=== PATIENT | female | born 1980 | race Caucasian/White ===

== ENCOUNTER 2023-09-02 19:11 | Inpatient (IN) | payer MEDICARE, SELFPAY ==
[2023-09-02] VITALS (9 sets, daily range): BP systolic 110–146; BP diastolic 57–86; BMI 34.5
[2023-09-02 15:45] LABS: % Basophils 0.5 % (0-2); % Eosinophils 0.1 % (0-6); % Immature Granulocytes 1.6 % (0-0.5); % Monocytes 2.3 % (1.7-9.3); % Neutrophils 93.5 % (42.2-75.2); Absolute Basophils 0.1 10^3/uL (0-0.2); Absolute Immature Granulocytes 0.5 10^3/uL (0-0.05); Absolute Lymphocytes 0.6 10^3/uL (1.2-3.4); Absolute Monocytes 0.6 10^3/uL (0.1-0.6); Absolute Neutrophils 25.6 10^3/uL (1.4-6.5); Hematocrit 35.9 % (37.0-47.0); Hemoglobin 12.6 g/dL (12.0-16.0); Mean Corp Hgb Conc. 35.1 g/dL (33.0-37.0); Mean Corpuscular Hgb 30.4 pg (27.0-31.0); Mean Corpuscular Volume 86.7 fL (81.0-99.0); Mean Platelet Volume 9.6 fL (7.4-10.4); Nucleated Red Blood Cells % 0 %; Platelet Count 251 10^3/uL (130-400); Red Blood Cell Count 4.14 10^6/uL (4.20-5.40); Red Cell Dist. Width 12.8 % (11.5-14.5); White Blood Cell Count 27.4 10^3/uL (4.8-10.8)
[2023-09-02 15:47] LABS: INR 1.23; PT 15.6 Sec (11.4-14.6)
[2023-09-02 15:48] LABS: APTT 40.2 Sec (23.4-35.0)
[2023-09-02 15:50] LABS: ALT (SGPT) 17 U/L (0-35); AST (SGOT) 25 U/L (14-36); Albumin 3.9 g/dl (3.5-5.0); Alkaline Phosphatase 162 U/L (38-126); Blood Urea Nitrogen 33 mg/dl (7-17); Calcium 10.7 mg/dl (8.4-10.2); Carbon Dioxide 22 mmol/L (22-30); Chloride 91 mmol/L (98-107); Glucose 113 mg/dl (70-99); Total Bilirubin 0.6 mg/dl (0.2-1.3); Total Protein 6.6 g/dl (6.3-8.2); eGFR 15.94
[2023-09-02 15:59] LABS: Potassium 3.7 mmol/L (3.5-5.1); Sodium 124 mmol/L (135-145)
[2023-09-02 16:00] LABS: Troponin I < 0.012 ng/ml
--- NOTE | 2023-09-02 16:29 | ED.GENMED ---
History of Present Illness
<Oziel Sun PA-C - Last Filed: 09/02/23 18:51>
General
Chief Complaint: Weakness
Time Seen by Provider: 09/02/23 16:15
Travel History
Have you had any contact with someone who has COVID-19?: No
Do you have any symptoms of coronavirus? Fever > 100 degrees, chills, cough, shortness of breath, sore throat, loss of taste or smell, muscle aches, or headache?: No
History of Present Illness
History of Present Illness:
Patient is a 43-year-old female with past medical history of cerebral palsy with weakness and contracture of the right upper extremity and weakness of the right lower extremity, history of seizure disorder, and history of bipolar disorder, currently
taking lamotrigine and Lamictal, here today with for evaluation of a change in mental status over the past 3 to 4 days. Patient states she has had difficulty finding her words associated with intermittent headaches, feeling of confusion,
and increased tremors predominantly in the lower extremities. She feels that she may be having a seizure. Patient does report prior to symptom onset she had an episode of urinary incontinence secondary to her cerebral palsy. Because of this,
patient states she has not eaten in the last 3 to 4 days. She does report drinking fluids approximately 4L per day. No noted fevers. No cough, rhinorrhea, or sore throat. No congestion. No vomiting. No abdominal pain or diarrhea. No chest
pain or difficulty breathing. Patient denies alcohol or drug use. No suicidal ideations. No history of kidney disease. No new medications. She denies taking any additional medications accidentally.
Past History
<Oziel Sun PA-C - Last Filed: 09/02/23 18:51>
Past History
ED Past Medical History: Seizures, Psychiatric (Bipolar disorder) and Other (Cerebral palsy with right arm weakness)
ED Past Surgical History: None
Social History
Tobacco: Non-smoker
Alcohol: None
Personal:
Review of Systems
<Oziel Sun PA-C - Last Filed: 09/02/23 18:51>
Review of Systems
All Other Systems: ROS reviewed and negative except as documented in HPI and ROS
Phy Exam
<Oziel Sun PA-C - Last Filed: 09/02/23 18:51>
Physical Exam
Physical Exam:
GENERAL: Alert , in no apparent distress
EYE: pupils equal and reactive
NECK: Supple, no significant adenopathy.
ENT: o/p clr, mmm.
CARDIAC: Regular rate and rhythm .
LUNGS: Clear breath sounds bilaterally, no acute respiratory distress, no wheezes/rales/rhonchi
ABDOMEN: Soft, without focal tenderness, no r/g, no cvat
NEUROLOGICAL: Alert and oriented, no focal neuro deficits, there is increased spasticity/contractures along the right upper extremity which the patient reports is chronic, there is decreased strength in the right upper extremity, strength is
otherwise intact throughout, no focal deficits, moving all extremities
SKIN: Warm and dry, skin intact.
MUSCULOSKELETAL: No edema, well perfused.
PSYCH: Normal and appropriate interaction.
Course
<Oziel Sun PA-C - Last Filed: 09/02/23 18:51>
Orders/Labs/Results
Orders:
Orders
09/02/23 Dinner
NPO
Allow oral meds: No
Allow clear liquids: No
09/02/23 15:16
CT Head W/o Iv Contrast Urgent
Comment:
Reason For Exam: weakness
09/02/23 15:23
Complete Blood Count/With Diff Urgent
Comprehensive Metabolic Panel Urgent
Protime/PTT Urgent
Troponin I Urgent
09/02/23 16:34
Electrocardiogram (*1) Urgent
Reason for Study: QTc Monitoring
Other Reason for Exam: ams
EKG- Treatment ONCE
Test Result ONCE
CR Chest - 2 Views Urgent
Comment:
Reason For Exam: ams
09/02/23 16:54
Acetaminophen Urgent
Alcohol Urgent
Aspirin level [Salicylate] Urgent
Lactic Acid Urgent
Lamotrigine (Lamictal) [S] Urgent
Hughson Urgent
Magnesium Urgent
Phosphorus Urgent
TSH Reflex To Free T4 Urgent
09/02/23 17:29
Carrero Placement- Treatment ONCE
Reason for insertion: I&O's Critical Care
09/02/23 18:19
Blood Culture Q30M
ERENDIRA Source: Blood/Venous
Specimen Description:
09/02/23 18:20
Serum Osmolality Urgent
Venous Blood Gas Urgent
%Oxygen/Room Air: 98
Blood Culture Q30M
ERENDIRA Source: Blood/Venous
Specimen Description:
09/02/23 18:26
Admit/Transfer Patient As Directed
Co-Sign Provider:
Level of Care: Inpatient admission
Assign to:: ICU
Physician / Group: Dr Merritt
Diagnosis: Seizures/Hyponatremia/Hughson toxicity
Reason for Hospitalization: pte p/w ams, seizures, hyponatemia, maris.
Expected length of stay greater than two midnights?: Yes
ELOS- Estimated Length of Stay in days: 2
I certify the patient meets the requirements for IP care: Yes
09/02/23 18:27
Code Status As Directed
Resuscitation Status: Full Code
09/02/23 18:32
Drug Screen, Urine [Urine Drug Abuse Screen] Urgent
Date Specimen was Collected: 09/02/23
Time Specimen was Collected: 18:21
Osmolality, Random Urine Urgent
Date Specimen was Collected: 09/02/23
Time Specimen was Collected: 18:21
, Urine Qualitative Screen [HCG, Urine Qualitative Screen] Urgent
Date Specimen was Collected: 09/02/23
Time Specimen was Collected: 18:21
Protein/Creat Ratio (Random) Urgent
Date Specimen was Collected: 09/02/23
Time Specimen was Collected: 18:21
Comment: YAELON
Urinalysis Reflex To Culture Urgent
Date Specimen was Collected: 09/02/23
Time Specimen was Collected: 18:22
Urine Creatinine Urgent
Date Specimen was Collected: 09/02/23
Time Specimen was Collected: 18:21
Comment: YAELON
Urine Microscopic Reflex Cult Urgent
Urine Sodium Urgent
Date Specimen was Collected: 09/02/23
Time Specimen was Collected: 18:21
Urine Culture Urgent
ERENDIRA Source: U
Specimen Description:
Date Specimen was Collected: 09/02/23
Time Specimen was Collected: 18:22
09/02/23 18:57
Add On- LAB Routine
Tests Added?: cpk, mag, urine creatinine, protein creat ratio
09/02/23 19:01
Embossing Toolsetter Consult Routine
Consulting Provider: Miller Tee
Was physician already notified: Yes
Reason for consult: AMS, hyponatremia, Hughson toxicity
09/02/23 19:02
NEPHROLOGY CONSULT Routine
Consulting Provider: Dory Charles
Was physician already notified: Yes
Reason for consult: MARIS and Hughson toxicity
09/02/23 19:03
NEUROLOGY CONSULT Routine
Consulting Provider: Francia Bell
Was physician already notified: Yes
Reason for consult: Seizures, AMS
09/02/23 19:05
Neurosurgery Consult Routine
Consulting Provider: Hugo Stanley
Was physician already notified: Yes
Reason for Consult: brain arachnoid cyst
PSYCHIATRY CONSULT Routine
Consulting Provider: Radha Fritz
Was physician already notified: Yes
Reason for consult: Bipolar eval in the setting lithium toxicity
09/02/23 19:56
Activity As Directed
Activity Level: Bedrest
Neurological Checks As Directed
Frequency: Per unit guidelines
Vital Signs As Directed
Frequency: Per unit guidelines
DX Deep Vein Thrombosis Video Routine
09/02/23 20:00
CefTRIAXone [Rocephin] 1,000 mg IV Q24H
Heparin 5,000 units SC Q12
MetroNIDAZOLE 500 MG/100 ML [Flagyl 500 mg] 100 ml IV Q8H
09/02/23 22:00
Lamotrigine [Lamictal] 200 mg PO HS ONE
09/02/23 22:29
BMP [Basic Metabolic Panel] Q4H
Creatine Phosphokinase Routine
09/03/23 03:00
BMP [Basic Metabolic Panel] Q4H
09/03/23 06:00
Complete Blood Count/With Diff IN AM
Comprehensive Metabolic Panel IN AM
Cortisol, Random IN AM
Creatine Phosphokinase IN AM
PTH [Intact PTH Includes Calcium] IN AM
Vitamin D, 25-OH IN AM
09/03/23 07:00
BMP [Basic Metabolic Panel] Q4H
09/03/23 10:00
US Renal Only W/O Bladder Routine
Reason For Exam: MARIS
09/03/23 11:00
BMP [Basic Metabolic Panel] Q4H
09/03/23 15:00
BMP [Basic Metabolic Panel] Q4H
Abnormal Lab Results
09/02/23 09/02/23 09/02/23
15:23 16:54 18:20
WBC 27.4 H 10^3/uL
(4.8-10.8)
RBC 4.14 L 10^6/uL
(4.20-5.40)
Hct 35.9 L %
(37.0-47.0)
Abs Immat Gran (auto) 0.5 H 10^3/uL
(0-0.05)
Absolute Neuts (auto) 25.6 H 10^3/uL
(1.4-6.5)
Absolute Lymphs (auto) 0.6 L 10^3/uL
(1.2-3.4)
Immature Gran % 1.6 H %
(0-0.5)
Neutrophils % 93.5 H %
(42.2-75.2)
Lymphocytes % 2.0 L %
(20.5-51.1)
PT 15.6 H Sec
(11.4-14.6)
APTT 40.2 H Sec
(23.4-35.0)
Sodium 124 L mmol/L
(135-145)
Chloride 91 L mmol/L
(98-107)
BUN 33 H mg/dl
(7-17)
Creatinine 3.5 H mg/dL
(0.6-1.0)
Glucose 113 H mg/dl
(70-99)
Serum Osmolality 273 L mOsm/kg
(275-300)
Lactic Acid 2.3 H mmol/L
(0.7-2.0)
Calcium 10.7 H mg/dl
(8.4-10.2)
Alkaline Phosphatase 162 H U/L
(38-126)
Ur Occult Blood Reflex
Leukocyte Esterase Rfl
Urine RBC
Urine WBC (Reflex)
Urine Bacteria (Reflex)
Urine Osmolality
Urine Sodium
Urine Albumin (Reflex)
Salicylates < 1.0 L mg/dl
(2.0-20.0)
Acetaminophen < 10 L ug/ml
(10-30)
Hughson 1.9 H* mmol/L
(0.6-1.2)
09/02/23
18:32
WBC
RBC
Hct
Abs Immat Gran (auto)
Absolute Neuts (auto)
Absolute Lymphs (auto)
Immature Gran %
Neutrophils %
Lymphocytes %
PT
APTT
Sodium
Chloride
BUN
Creatinine
Glucose
Serum Osmolality
Lactic Acid
Calcium
Alkaline Phosphatase
Ur Occult Blood Reflex 3+ A
(Negative)
Leukocyte Esterase Rfl 2+ A
(Negative)
Urine RBC 3-6 A /HPF
(0-2)
Urine WBC (Reflex) 60-70 A /HPF
(0-5)
Urine Bacteria (Reflex) Few A
(Negative)
Urine Osmolality 138 L mOsm/kg
(300-900)
Urine Sodium 10 L mmol/L
(30-90)
Urine Albumin (Reflex) 1+ A
(Neg - Trace)
Salicylates
Acetaminophen
Hughson
09/02/23 15:23
09/02/23 19:00
Vital Signs
Initial and Last Documented VS:
Initial Vital Signs
Temp Pulse Resp BP Pulse Ox
97.8 F 104 18 137/86 98
09/02/23 15:09 09/02/23 15:09 09/02/23 15:09 09/02/23 15:09 09/02/23 15:09
Last Documented Vital Signs
Temp Pulse Resp BP Pulse Ox
100.8 F H 112 31 110/79 96
09/02/23 23:08 09/02/23 23:00 09/02/23 23:00 09/02/23 23:00 09/02/23 23:00
<Aston Nova, DO - Last Filed: 09/02/23 23:42>
Orders/Labs/Results
Orders:
Orders
09/02/23 Dinner
NPO
Allow oral meds: No
Allow clear liquids: No
09/02/23 15:16
CT Head W/o Iv Contrast Urgent
Comment:
Reason For Exam: weakness
09/02/23 15:23
Complete Blood Count/With Diff Urgent
Comprehensive Metabolic Panel Urgent
Protime/PTT Urgent
Troponin I Urgent
09/02/23 16:34
Electrocardiogram (*1) Urgent
Reason for Study: QTc Monitoring
Other Reason for Exam: ams
EKG- Treatment ONCE
Test Result ONCE
CR Chest - 2 Views Urgent
Comment:
Reason For Exam: ams
09/02/23 16:54
Acetaminophen Urgent
Alcohol Urgent
Aspirin level [Salicylate] Urgent
Lactic Acid Urgent
Lamotrigine (Lamictal) [S] Urgent
Hughson Urgent
Magnesium Urgent
Phosphorus Urgent
TSH Reflex To Free T4 Urgent
09/02/23 17:29
Carrero Placement- Treatment ONCE
Reason for insertion: I&O's Critical Care
09/02/23 18:19
Blood Culture Q30M
ERENDIRA Source: Blood/Venous
Specimen Description:
09/02/23 18:20
Serum Osmolality Urgent
Venous Blood Gas Urgent
%Oxygen/Room Air: 98
Blood Culture Q30M
ERENDIRA Source: Blood/Venous
Specimen Description:
09/02/23 18:26
Admit/Transfer Patient As Directed
Co-Sign Provider:
Level of Care: Inpatient admission
Assign to:: ICU
Physician / Group: Dr Merritt
Diagnosis: Seizures/Hyponatremia/Hughson toxicity
Reason for Hospitalization: pte p/w ams, seizures, hyponatemia, maris.
Expected length of stay greater than two midnights?: Yes
ELOS- Estimated Length of Stay in days: 2
I certify the patient meets the requirements for IP care: Yes
09/02/23 18:27
Code Status As Directed
Resuscitation Status: Full Code
09/02/23 18:32
Drug Screen, Urine [Urine Drug Abuse Screen] Urgent
Date Specimen was Collected: 09/02/23
Time Specimen was Collected: 18:21
Osmolality, Random Urine Urgent
Date Specimen was Collected: 09/02/23
Time Specimen was Collected: 18:21
, Urine Qualitative Screen [HCG, Urine Qualitative Screen] Urgent
Date Specimen was Collected: 09/02/23
Time Specimen was Collected: 18:21
Protein/Creat Ratio (Random) Urgent
Date Specimen was Collected: 09/02/23
Time Specimen was Collected: 18:21
Comment: RENAE
Urinalysis Reflex To Culture Urgent
Date Specimen was Collected: 09/02/23
Time Specimen was Collected: 18:22
Urine Creatinine Urgent
Date Specimen was Collected: 09/02/23
Time Specimen was Collected: 18:21
Comment: YAELON
Urine Microscopic Reflex Cult Urgent
Urine Sodium Urgent
Date Specimen was Collected: 09/02/23
Time Specimen was Collected: 18:21
Urine Culture Urgent
ERENDIRA Source: U
Specimen Description:
Date Specimen was Collected: 09/02/23
Time Specimen was Collected: 18:22
09/02/23 18:57
Add On- LAB Routine
Tests Added?: cpk, mag, urine creatinine, protein creat ratio
09/02/23 19:01
Embossing Toolsetter Consult Routine
Consulting Provider: Miller Tee
Was physician already notified: Yes
Reason for consult: AMS, hyponatremia, Hughson toxicity
09/02/23 19:02
NEPHROLOGY CONSULT Routine
Consulting Provider: Dory Charles
Was physician already notified: Yes
Reason for consult: MARIS and Hughson toxicity
09/02/23 19:03
NEUROLOGY CONSULT Routine
Consulting Provider: Francia Bell
Was physician already notified: Yes
Reason for consult: Seizures, AMS
09/02/23 19:05
Neurosurgery Consult Routine
Consulting Provider: Hugo Stanley
Was physician already notified: Yes
Reason for Consult: brain arachnoid cyst
PSYCHIATRY CONSULT Routine
Consulting Provider: Radha Fritz
Was physician already notified: Yes
Reason for consult: Bipolar eval in the setting lithium toxicity
09/02/23 19:56
Activity As Directed
Activity Level: Bedrest
Neurological Checks As Directed
Frequency: Per unit guidelines
Vital Signs As Directed
Frequency: Per unit guidelines
DX Deep Vein Thrombosis Video Routine
09/02/23 20:00
CefTRIAXone [Rocephin] 1,000 mg IV Q24H
Heparin 5,000 units SC Q12
MetroNIDAZOLE 500 MG/100 ML [Flagyl 500 mg] 100 ml IV Q8H
09/02/23 22:00
Lamotrigine [Lamictal] 200 mg PO HS ONE
09/02/23 22:29
BMP [Basic Metabolic Panel] Q4H
Creatine Phosphokinase Routine
09/03/23 03:00
BMP [Basic Metabolic Panel] Q4H
09/03/23 06:00
Complete Blood Count/With Diff IN AM
Comprehensive Metabolic Panel IN AM
Cortisol, Random IN AM
Creatine Phosphokinase IN AM
PTH [Intact PTH Includes Calcium] IN AM
Vitamin D, 25-OH IN AM
09/03/23 07:00
BMP [Basic Metabolic Panel] Q4H
09/03/23 10:00
US Renal Only W/O Bladder Routine
Reason For Exam: MARIS
09/03/23 11:00
BMP [Basic Metabolic Panel] Q4H
09/03/23 15:00
BMP [Basic Metabolic Panel] Q4H
Abnormal Lab Results
09/02/23 09/02/23 09/02/23
15:23 16:54 18:20
WBC 27.4 H 10^3/uL
(4.8-10.8)
RBC 4.14 L 10^6/uL
(4.20-5.40)
Hct 35.9 L %
(37.0-47.0)
Abs Immat Gran (auto) 0.5 H 10^3/uL
(0-0.05)
Absolute Neuts (auto) 25.6 H 10^3/uL
(1.4-6.5)
Absolute Lymphs (auto) 0.6 L 10^3/uL
(1.2-3.4)
Immature Gran % 1.6 H %
(0-0.5)
Neutrophils % 93.5 H %
(42.2-75.2)
Lymphocytes % 2.0 L %
(20.5-51.1)
PT 15.6 H Sec
(11.4-14.6)
APTT 40.2 H Sec
(23.4-35.0)
Sodium 124 L mmol/L
(135-145)
Chloride 91 L mmol/L
(98-107)
BUN 33 H mg/dl
(7-17)
Creatinine 3.5 H mg/dL
(0.6-1.0)
Glucose 113 H mg/dl
(70-99)
Serum Osmolality 273 L mOsm/kg
(275-300)
Lactic Acid 2.3 H mmol/L
(0.7-2.0)
Calcium 10.7 H mg/dl
(8.4-10.2)
Alkaline Phosphatase 162 H U/L
(38-126)
Ur Occult Blood Reflex
Leukocyte Esterase Rfl
Urine RBC
Urine WBC (Reflex)
Urine Bacteria (Reflex)
Urine Osmolality
Urine Sodium
Urine Albumin (Reflex)
Salicylates < 1.0 L mg/dl
(2.0-20.0)
Acetaminophen < 10 L ug/ml
(10-30)
Hughson 1.9 H* mmol/L
(0.6-1.2)
09/02/23
18:32
WBC
RBC
Hct
Abs Immat Gran (auto)
Absolute Neuts (auto)
Absolute Lymphs (auto)
Immature Gran %
Neutrophils %
Lymphocytes %
PT
APTT
Sodium
Chloride
BUN
Creatinine
Glucose
Serum Osmolality
Lactic Acid
Calcium
Alkaline Phosphatase
Ur Occult Blood Reflex 3+ A
(Negative)
Leukocyte Esterase Rfl 2+ A
(Negative)
Urine RBC 3-6 A /HPF
(0-2)
Urine WBC (Reflex) 60-70 A /HPF
(0-5)
Urine Bacteria (Reflex) Few A
(Negative)
Urine Osmolality 138 L mOsm/kg
(300-900)
Urine Sodium 10 L mmol/L
(30-90)
Urine Albumin (Reflex) 1+ A
(Neg - Trace)
Salicylates
Acetaminophen
Hughson
09/02/23 15:23
09/02/23 19:00
Vital Signs
Initial and Last Documented VS:
Initial Vital Signs
Temp Pulse Resp BP Pulse Ox
97.8 F 104 18 137/86 98
09/02/23 15:09 09/02/23 15:09 09/02/23 15:09 09/02/23 15:09 09/02/23 15:09
Last Documented Vital Signs
Temp Pulse Resp BP Pulse Ox
100.8 F H 112 31 110/79 96
09/02/23 23:08 09/02/23 23:00 09/02/23 23:00 09/02/23 23:00 09/02/23 23:00
<Oziel Sun PA-C - Last Filed: 09/02/23 18:51>
MDM/Problems Addressed
Differential Diagnosis Includes:
Patient is a 43-year-old female with past medical history of cerebral palsy with weakness and contracture of the right upper extremity and weakness of the right lower extremity, history of seizure disorder, and history of bipolar disorder, currently
taking lamotrigine and Lamictal, here today with for evaluation of a change in mental status over the past 3 to 4 days. Overall, patient appears well. Physical examination described above. Workup was initiated in the emergency department
and is noted to be positive for an increased WBC count to 27.4 thousand, sodium 124, chloride 91, BUN 33/creatinine 3.5 (last creatinine in September 2022 1.0), glucose 113, lactic acid 2.3, calcium 10.7. Alkaline phosphatase 162. Hughson level 1.9.
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 No midline shift. No prior studies to compare to. Symptoms/findings at this time are likely
multifactorial in nature and may be secondary to dehydration, acute kidney injury, metabolic encephalopathy, SIADH from brain mass, lithium toxicity, etc. Patient will undergo additional laboratory studies. Case was discussed with nephrology,
Araceli. She reports she will follow patient and management plan will be dependent on additional urine and blood studies. We will also obtain a bladder scan and insert a Carrero catheter to monitor urine output. Case was also discussed with
neurosurgery, Dr. Stanley. He does not recommend any acute intervention at this time and feels patient is suitable to stay at [facility] and does not require transfer at this time. We did attempt to obtain prior brain imaging studies
and radiology was able to see a prior MRI, however, they report a large cystic mass on the left consistent with an arachnoid cyst without size descriptions. Will admit patient to medicine for further treatment and evaluation. Case discussed with ED
attending, Dr. Nova.
<Oziel Sun PA-C - Last Filed: 09/02/23 18:51>
*Critical Care Note
Total Time (30-74mins, 75-104mins- exclusive of procedures): Not Applicable
<DO Kenisha Soriano Last Filed: 09/02/23 23:42>
*Radiology
Radiology exam reviewed: preliminary read by ED provider (No blood but large cystic structure) and radiology read reviewed
*Pulse Oximetry
Patient hypoxic: no
*Animal Control Licensing Worker Interpretation
Rate: normal
Interpretation: normal
Rhythm: sinus
*Critical Care Note
Total Time (30-74mins, 75-104mins- exclusive of procedures): 65 minutes
Data Reviewed
Review of Other/Old Records Reveals: Labs (Prior labs reviewed. Prior renal function normal)
Source: patient and spouse
Prescriptions/Medications Considered But Not Given:
Consider 3% saline but await nephrology input
<Aston Nova DO - Last Filed: 09/02/23 23:42>
Patient Management
Discussion with other providers: Hospitalist and Vineyard Worker (Case discussed with nephrology)
ED Attending Note
<Oziel Sun PA-C - Last Filed: 09/02/23 18:51>
-
Portions of this chart may have been created with voice recognition software.� Occasional wrong word or��sound alike� substitutions may have occurred due to the inherent limitations of voice recognition software.
<Aston Nova DO - Last Filed: 09/02/23 23:42>
ED Attending Note
Patient seen and examined by attending physician: Yes
I performed the substantive portion of visit, reviewed & personally made and approve the management plan that is documented in note by myself or KRYSTAL.: Yes
ED Attending Note:
43-year-old female with a history of seizures on lithium who presents with generalized weakness, concern for possible seizure activity, tremulousness and not eating very well. Exam: Patient is awake and alert, no respiratory distress, no obvious
seizure activity. Assessment and plan: Patient is quite complicated. Drink 4 L of fluid a day and her significant other suspects that is what keeps her from seizing because of her medications. It is noted that the patient has not had follow-up
for her brain cyst since 2005. states that they were told that it was large and about the same size as they were told it is today. In addition they have not had close follow-up with her renal function as there was some renal insufficiency
in the past reportedly. The patient does report excessive thirst. Question whether she could have diabetes insipidus related to her lithium. She is complicated by excessive water intake as well as acute renal failure. Case was discussed with
neurosurgery by ROBBY. I discussed the case with nephrology as well. Admit, IV fluids as per nephrology
Discharge Plan
Departure
Patient Disposition: Admit
Date of Disposition: 09/02/23
Time of Disposition: 18:17
Admit to: Med/Surg
Admit to doctor: Dr. Merritt
Presentation/result/management discussed w/ accepting MD/DO: Hospitalist
Patient with high blood pressure during this ER visit?: No
Condition: Critical
Covid-19: Not Applicable
Discharge Problem:
Altered mental status, Tremors, Acute kidney injury, Hyponatremia, Elevated lithium level, Arachnoid cyst, Leukocytosis, Lactic acidosis
Interventions
Interventions:
*Risk Screen - Suicide Last Done: 09/02/23 19:58
*General Assessment Last Done: 09/02/23 15:09
*Neglect/Abuse Screening Last Done: 09/02/23 15:09
*ED COVID-19 Vaccine History Last Done: 09/02/23 19:53
*Nursing Disposition Last Done: 09/02/23 19:50
ED- Pulmonary Assessment Last Done: 09/02/23 17:12
ED- Neurological Assessment Last Done: 09/02/23 17:12
ED- Cardiac Assessment Last Done: 09/02/23 17:12
Discharge Date and Time
Discharge Date/Time: 09/02/23 19:50
[2023-09-02 17:13] LABS: Lactic Acid 2.3 mmol/L (0.7-2.0)
[2023-09-02 17:16] LABS: Alcohol None Detected
[2023-09-02 17:17] LABS: Acetaminophen < 10 ug/ml (10-30); Lithium 1.9 mmol/L (0.6-1.2); Magnesium 1.9 mg/dl (1.6-2.3); Phosphorus 2.5 mg/dl (2.5-4.5); Salicylate < 1.0 mg/dl (2.0-20.0)
--- NOTE | 2023-09-02 17:58 | HPS.HSE ---
Family Physician
-
Family Physician: Joseph Burleson
Chief Complaint
-
AMS
History of Present Illness
Patient 43 years old female with history of cerebral palsy, bipolar disorder, seizures, presented to the hospital altered mental status. Most of the information gathered from medical records and family. Patient having difficulty finding work and
intermittent headaches and confusion on and off as well as increased tremors in her lower extremities over the last several days. They felt she probably had seizures. When I asked about what happened in terms of seizures, tells me that she
had some headaches and some difficulty speaking but is not clear that she had tonic-clonic activity. She has decreased oral intake. Denies fevers or chills. Denies dysuria urgency or frequency. Denies cough or shortness of breath. In the ED,
WBC 27.4, sodium 124, creatinine 3.5, lithium 1.9. CT scan of the head with large cystic structure in the left side of the brain consistent with a giant arachnoid cyst. Chest x-ray increased stranding of both lung bases. She was referred to
hospitalist for evaluation.
Medical History
Past Medical History
Past Medical History: Reports Other (Cerebral palsy, seizure disorders, bipolar disorder, history of arachnoid cyst of the brain.)
Past Surgical History: Reports None
Social History
Tobacco: Non-smoker
Alcohol: None
Drug: None
Family History
Family History: Not pertinent
Allergies / Home Medications
Allergies reflects when Allergies were last updated in [facility].
Home Medications with original date entered in [facility]
Allergy/Medication List:
Allergies
Allergy/AdvReac Type Severity Reaction Status Date / Time
No Known Allergies Allergy Unverified 09/02/23 15:13
Home Medications
lamotrigine 200 mg tablet 200 mg PO BID 09/02/23
lithium carbonate 300 mg tablet 300 mg PO BID@0800,1800 09/02/23
lithium carbonate 300 mg tablet 600 mg PO HS 09/02/23
venlafaxine 150 mg capsule,extended release 24 hr 150 mg PO DAILY 09/02/23
Review of Systems
-
A 12 point ROS was completed and negative except as noted: Yes
Physical Exam
Vital Signs
Vital Signs
Temp Pulse Resp BP Pulse Ox
97.8 F 104 18 137/86 98
09/02/23 15:09 09/02/23 15:09 09/02/23 15:09 09/02/23 15:09 09/02/23 15:09
Physical exam:
General: Acutely ill
HEENT: Normocephalic, Atraumatic and Moist Mucous Membranes
Respiratory: Clear to Auscultation; Negative Wheezes, Rales or Rhonchi
Cardiac: Regular Rhythm and S1/S2
GI: Soft, Nontender and Nondistended
Musculoskeletal: Contractures in both upper on lower extremities. No Clubbing, No Cyanosis and No Edema
Neuro: Awake, Alert and Oriented, cognitively intact.
Psych: Calm
Physical Exam
General: Other
Laboratory Results
-
09/02/23 15:23
09/02/23 15:23
Laboratory Results
PT 15.6 Sec (11.4-14.6) H 09/02/23 15:23
INR 1.23 09/02/23 15:23
APTT 40.2 Sec (23.4-35.0) H 09/02/23 15:23
Lactic Acid 2.3 mmol/L (0.7-2.0) H 09/02/23 16:54
Total Bilirubin 0.6 mg/dl (0.2-1.3) 09/02/23 15:23
AST 25 U/L (14-36) 09/02/23 15:23
ALT 17 U/L (0-35) 09/02/23 15:23
Alkaline Phosphatase 162 U/L (38-126) H 09/02/23 15:23
Troponin I < 0.012 ng/ml 09/02/23 15:23
Impression/Plan
-
IMPRESSION:
patient 43 y f Hx CP, Sz, admitted in with AMS. Patient appears to have seizures in the setting of severe hypernatremia, lithium toxicity, large arachnoid brain cyst. Patient critically ill. Patient at increased risk of morbidity and mortality
due to her current presentation. She will need to be admitted to intensive care unit and monitor closely.
Impression:
Altered mental status-toxic metabolic encephalopathy
Seizures
Leukocytosis
Acute kidney injury
Hyponatremia
[place] toxicity, lithium 1.9 in the setting of acute kidney injury
Suspicion for aspiration pneumonia
Hypercalcemia
Conditions prior to presentation:
Cerebral palsy
Seizures
Probably CKD
Bipolar disorder
PLAN:
Urine sodium and urine osmolarity as well as TSH and cortisol level
Will either do IV fluids or restrict fluid or 3% saline depending on workup
insist on starting fluids immediately but I discussed with him the nephrology needs to evaluate the workup first before we decide in terms of fluids and what kind if any.
Speech therapy for swallowing eval
Nephrology consult--> discussed personally with nephrology given concerns for lithium toxicity in the setting of renal failure and severe hyponatremia and she will evaluate if needed 3% and or if require hemodialysis at some point.
Neurology consult--> discussed with neurology and if there is evidence of seizures we might load her either Dilantin or Keppra. For now very hesitant on starting any different antiseizure medication so we will keep her home regimen.
Neurosurgery consult ([place] texted neurosurgery today)
Follow-up cultures
Start empirically IV Rocephin and Flagyl--> Okay with antibiotics
Check BMP every 4 hours
Check ultrasound of the kidneys/bladder
Carrero catheter placed in the ED and monitor urine output closely
Follow neurological status closely
Monitor sodium
Trend WBC, temperature curve
DVT prophylaxis heparin SQ
CODE STATUS full code
Overall prognosis guarded
Total Critical Care Time 55 minutes. I was immediately available to the patient and staff. I personally examined, reviewed labs, diagnostic images/reports, interpretations, treatment plans, discussed patient care with other providers and family
or caregivers (if patient is unable to make decisions), entered orders as appropriate and documented the medical record.
--- NOTE | 2023-09-02 18:28 | W.CON.NEPH ---
Consultation
-
Date/Time Consultation Requested: 09/02/231729
Date/Time Consultation Performed: 09/02/231744
Requesting Provider: Ulises Ross
Performing Provider: Dory Maya
Reason for Consultation: MARIS, hyponatremia
Medical History
-
Chief Complaint: confusion
History of Present Illness:
This 43-year-old female with a history of cerebral palsy with right sided weakness, seizure disorder, bipolar type II on lithium, venlafaxine, lamotrigine for several years who reportedly had some kidney dysfunction few years ago and lithium dose
was reduced Pre COVID, since that time she has not back to her physician brought in today by her spent with altered mental status for 3-4 days. She also reports to having seizure like activity 2 days ago and seemed to had postictal phase. According
to the on driving to the hospital and dropped she may have had shaking. Normally with her seizure she never loses her consciousness. Reportedly she drinks at least 4 L per day of fluid due to her medications. She had incontinence episode a
few days ago since then she decreased her oral intake except was continued to drink fluids. There is no history of chest pain or shortness of breath or nausea or vomiting or lower extremity edema. No dysuria. Reportedly patient states she has had
difficulty finding her words associated with intermittent headaches, feeling of confusion, and increased tremors predominantly in the lower extremities.� No noted fevers.� Denies use of NSAIDs.
In the ER she noted to have sodium of 124, creatinine was 3.5. Last creatinine was around 1 in September 2022. Calcium level was 10.7.
Past Medical History
Cerebral palsy with the right upper extremity contracture and right lower extremity weakness.
Seizure disorder
Bipolar disorder
Arachnoid cyst of brain
Past Surgical History: Other
Social History
Tobacco: Non-Smoker
Alcohol: None
Personal:
Living: With Family
Employment: Not Employed
Family History
patient has been away from her parents family for last 20 years hence no history available
Allergies / Home Medications
Allergy/AdvReac Type Severity Reaction Status Date / Time
No Known Allergies Allergy Unverified 09/02/23 15:13
Medication Instructions Recorded Confirmed Type
lamotrigine 200 mg tablet 200 mg PO BID 09/02/23 09/02/23 History
lithium carbonate 300 mg tablet 300 mg PO BID@0800,1800 09/02/23 09/02/23 History
lithium carbonate 300 mg tablet 600 mg PO HS 09/02/23 09/02/23 History
venlafaxine 150 mg 150 mg PO DAILY 09/02/23 09/02/23 History
capsule,extended release 24 hr
Review of Systems
-
All complete 12 point ROS have been inquired and found negative other than stated in HPI
Physical Exam
Vital Signs
Vital Signs
Temp Pulse Resp BP Pulse Ox
97.8 F 104 18 137/86 98
09/02/23 15:09 09/02/23 15:09 09/02/23 15:09 09/02/23 15:09 09/02/23 15:09
Lab Results
WBC 27.4 10^3/uL (4.8-10.8) H 09/02/23 15:23
RBC 4.14 10^6/uL (4.20-5.40) L 09/02/23 15:23
Hgb 12.6 g/dL (12.0-16.0) 09/02/23 15:23
Hct 35.9 % (37.0-47.0) L 09/02/23 15:23
Plt Count 251 10^3/uL (130-400) 09/02/23 15:23
Sodium 124 mmol/L (135-145) L 09/02/23 15:23
Potassium 3.7 mmol/L (3.5-5.1) 09/02/23 15:23
Chloride 91 mmol/L (98-107) L 09/02/23 15:23
Carbon Dioxide 22 mmol/L (22-30) 09/02/23 15:23
BUN 33 mg/dl (7-17) H 09/02/23 15:23
Creatinine 3.5 mg/dL (0.6-1.0) H 09/02/23 15:23
eGFR 15.94 09/02/23 15:23
Glucose 113 mg/dl (70-99) H 09/02/23 15:23
Calcium 10.7 mg/dl (8.4-10.2) H 09/02/23 15:23
Phosphorus 2.5 mg/dl (2.5-4.5) 09/02/23 16:54
Albumin 3.9 g/dl (3.5-5.0) 09/02/23 15:23
CT head:
IMPRESSION:
1. � Large cystic structure in the left side of the cerebrum, most consistent with a giant arachnoid cyst. No significant downward herniation or midline shift.
2. � No acute intracranial process.
3. � Are there any other imaging studies at another institution?
4.� � Follow-up with nonurgent contrast-enhanced MRI is recommended to fully evaluate and obtain an appropriate baseline at this institution.
Physical Exam
General: Awake, Alert, Oriented, AOx3, No Distress and Nontoxic
HEENT: EOMI and Anicteric
Respiratory: Clear, Normal Excursion and Nonlabored Respirations
Cardiac: S1/S2 and Regular Rate/Rhythm
Abdomen: Soft, Nontender and Nondistended
Musculoskeletal: No Cyanosis and No Edema
Skin: No Rash (face-rosacea?)
Neuro: Other (Rt UE contracture noted )
Psych: Mood/afflect pleasant, Insight/judgement good and Appropriate
Assessment/Plan
-
IMP:
AMS/confusion
Hyponatremia
MARIS-cr was 1 in 09/2022
Mild hypercalcemia
[place] toxicity
Elevated ALP
leucocytosis
Giant arachnoid cyst of brain
SZDO
Bipolar
Cerebral palsy
Plan:
P/w confusion, SZ 2days ago
Hyponatremia-likely symptomatic however seem to be polydipsia -4lit/day
check Uosmo, U na-if low osm likely will correct with FR 64ounces/day
if not will start 3% saline, normal TSH, check cortisol in am
Q4h labs check, goal to bring sodium to 130 tomorrow
MARIS-last cr 1 , one yr ago. place johnson, check UA and Fena
also check renal US
she may have underlying CKD with chr lithium use
Li levels 1.9, hold Li, need psych input to find alternative
if no improvement seen likely she needs HD-reviewed with pt and
Hypercalcemia-likely from Li related, check PTH and vit D
avoid nephrotoxins
BP are stable if hemodynamic instability ok to use NS
monitor L acid
d/w ER, primary team
d/w pt and in detail
CC time spent 45min
[2023-09-02 18:30] LABS: Venous Blood Gas B.E. 1.3 mmol/L (-4 to +4); Venous Blood Gas HCO3 25.9 mmol/L (22-27); Venous Blood Gas O2 Sat % 85.5 %; Venous Blood Gas pCO2 40 mmHg (35-48); Venous Blood Gas pH 7.42 (7.32-7.43); Venous Blood Gas pO2 49 mmHg (30-50)
[2023-09-02 18:39] LABS: Osmolality Serum 273 mOsm/kg (275-300)
--- NOTE | 2023-09-02 18:43 | CON.NEURO ---
Consultation
Order
Date of Consultation: 09/03/23
Reason for Consult: seizure
Neurology consultation note
CC: none
HPI: This is a 43-year-old left-handed woman who presented to [facility] with encephalopathy. According to the patient she had intermittent difficulties expressing her thoughts over the last 2 days. She believes she could have had
seizures. No reports of fever, headache recently started to discontinued medications.
ER VS:137/68, 104, afebrile
PDMP:none
Labs: WBC 27.4, Na 124, gluc 113, C 3.5, Ca 10.7, lactic acid 2.3, TSH-1.80, normal CK, TSH, lithium level 1.8(0.6-1.2)
CT [id number] large subarachnoid cyst with no significant shift or herniation.
PMH: Spastic CP, left-sided subarachnoid cyst,bipolar DO, chronic leukocytosis
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
FH: Not contributory to current presentation
All:NKDA
ROS:Constitutional: Negative. Negative for chills, fever and unexpected weight change.
HENT: Negative for ear pain, hearing loss, tinnitus and trouble swallowing.
Eyes: Negative. Negative for photophobia, pain and visual disturbance.
Respiratory: Negative for cough, choking and shortness of breath.
Cardiovascular: Negative for chest pain, palpitations and leg swelling.
Gastrointestinal: Negative for abdominal pain and vomiting.
Endocrine: Negative. Negative for cold intolerance.
Genitourinary: Negative for dysuria, flank pain and urgency.
Musculoskeletal: Negative for back pain, gait problem, neck pain and neck stiffness.
Skin: Negative for rash.
Allergic/Immunologic: Negative. Negative for immunocompromised state.
Neurological: Difficulties with speech, chronic right-sided stiffness
Psychiatric/Behavioral: Negative for behavioral problems, confusion and hallucinations.
General: Well developed. In no acute distress.
Cardio: Regular rate and rhythm without murmur. Extremities are without cyanosis or edema.
Neuro:
Mental Status: Alert, oriented to person, place, and date. Increased processing time. Follows simple requests consistently. Nonfluent.
Cranial Nerves: Pupils are equally round and reactive to light. EOMs full. Visual patterson full to confrontation. No ptosis. No nystagmus. V1-V3 intact to light touch and pinprick bilaterally, symmetric. Mild right facial weakness. Normal
hearing AU. The palate elevated well. SCMs and traps 5/5. Tongue midline. No dysarthria.
Motor: Spastic right hemiparesis
Reflexes: 3+
Sensory: Normal vibration at the toes
Coordination: No tremors myoclonic movements
Gait: deferred
Assessment and Plan:
I. Probably focal symptomatic seizure vs metabolic/infectious encephalopathy
II. Hyponatremia, MARIS, gG- bacteremia
III. Left-sided subarachnoid cyst
IV. [place] toxicity
-Seizure precautions
-Continue Lamictal home dose
-Check SPEP/IF
-Outpatient neurology follow up in 2-3 weeks
I personally reviewed all radiology and labs along with past medical records pertinent to current medical problems. Total time spent in patient care is 60 minutes.
Thank you for allowing us to participate in the care of this patient. Please do not hesitate to contact us with any questions or concerns.
Subjective/Objective
Subjective Data
Date of Service: September 02, 2023
Objective Data
Vital Signs
Temp Pulse Resp BP Pulse Ox
36.6 C 100 25 116/57 98
09/02/23 15:09 09/02/23 18:31 09/02/23 18:31 09/02/23 18:31 09/02/23 18:31
Lab Results
09/02/23 15:23
09/02/23 15:23
PT 15.6 Sec (11.4-14.6) H 09/02/23 15:23
INR 1.23 09/02/23 15:23
APTT 40.2 Sec (23.4-35.0) H 09/02/23 15:23
Sodium 124 mmol/L (135-145) L 09/02/23 15:23
Potassium 3.7 mmol/L (3.5-5.1) 09/02/23 15:
BUN 33 mg/dl (7-17) H 09/02/23 15:23
Glucose 113 mg/dl (70-99) H 09/02/23 15:23
Calcium 10.7 mg/dl (8.4-10.2) H 09/02/23 15:
Phosphorus 2.5 mg/dl (2.5-4.5) 09/02/23 16:54
Patient Allergies
No Known Allergies Allergy (Unverified 09/02/23 15:13)
Medications
-
Home Medications
Medication Instructions Recorded
lamotrigine 200 mg tablet 200 mg PO BID 09/02/23
lithium carbonate 300 mg tablet 300 mg PO BID@0800,1800 09/02/23
lithium carbonate 300 mg tablet 600 mg PO HS 09/02/23
venlafaxine 150 mg 150 mg PO DAILY 09/02/23
capsule,extended release 24 hr
Home Medications
-
Home Medications
lamotrigine 200 mg tablet 200 mg PO BID 09/02/23
lithium carbonate 300 mg tablet 300 mg PO BID@0800,1800 09/02/23
lithium carbonate 300 mg tablet 600 mg PO HS 09/02/23
venlafaxine 150 mg capsule,extended release 24 hr 150 mg PO DAILY 09/02/23
Vital Signs and Labs
-
Vital Signs and Labs:
Vital Signs
Temp Pulse Resp BP Pulse Ox
36.6 C 100 25 116/57 98
09/02/23 15:09 09/02/23 18:31 09/02/23 18:31 09/02/23 18:31 09/02/23 18:31
Lab Results
09/02/23 15:23
09/02/23 15:23
PT 15.6 Sec (11.4-14.6) H 09/02/23 15:23
INR 1.23 09/02/23 15:23
APTT 40.2 Sec (23.4-35.0) H 09/02/23 15:23
Sodium 124 mmol/L (135-145) L 09/02/23 15:23
Potassium 3.7 mmol/L (3.5-5.1) 09/02/23 15:23
BUN 33 mg/dl (7-17) H 09/02/23 15:23
Glucose 113 mg/dl (70-99) H 09/02/23 15:23
Calcium 10.7 mg/dl (8.4-10.2) H 09/02/23 15:23
Phosphorus 2.5 mg/dl (2.5-4.5) 09/02/23 16:54
[2023-09-02 18:56] LABS: Urine Albumin 1+ (Neg - Trace); Urine Bilirubin Negative (Negative); Urine Character Clear (Clear); Urine Color Yellow; Urine Glucose Negative (Negative); Urine Ketone Negative (Negative); Urine Leukocyte 2+ (Negative); Urine Nitrite Negative (Negative); Urine Occult Blood 3+ (Negative); Urine Urobilinogen Negative (Neg - 1+)
[2023-09-02 19:03] LABS: Osmolality Urine 138 mOsm/kg (300-900)
[2023-09-02 19:05] LABS: HCG, Urine Qualitative Screen Negative
[2023-09-02 19:26] LABS: Urine Bacteria Few (Negative); Urine White Cell 60-70 /HPF (0-5)
[2023-09-02 19:31] LABS: Amphetamines Negative (Negative); Barbiturates Negative (Negative); Benzodiazepines Negative (Negative); Buprenorphine Negative (Negative); Cocaine Negative (Negative); Marijuana Negative (Negative); Methadone Negative (Negative); Methamphetamines Negative (Negative); Opiates Negative (Negative); Phencyclidine Negative (Negative); Tricyclic Antidepressants Negative (Negative)
[2023-09-02 19:52] LABS: Protein/creatinine Ratio 3.3; Urine Protein 152 mg/dl; Urine Sodium 10 mmol/L (30-90)
[2023-09-02 20:00] LABS: Blood Urea Nitrogen 44 mg/dl (7-17); Calcium 11.1 mg/dl (8.4-10.2); Carbon Dioxide 20 mmol/L (22-30); Chloride 92 mmol/L (98-107); Estimated Creatinine Clearance 24 ml/min; Glucose 104 mg/dl (70-99); Potassium 3.4 mmol/L (3.5-5.1); Sodium 125 mmol/L (135-145); eGFR 16.51
--- NOTE | 2023-09-02 20:00 | PTCARENOTE ---
received patient from ER. oriented x3. denies pain at this time. R arm contracted. delayed speech at times. intermittent leg tremors noted. pt admits to possible seizures over the past few days that include increased delay in speech, tremoring, head
pains. ST on monitor. + pulses. left hand with purple discoloration. ICU ADDING MACHINE OPERATOR at bedside to assess patient. denies SOB, lungs CTA, on RA. hypoactive BS. patient NPO. johnson in place, emptied 350ml upon arrival. CHG bath. care ongoing.
[2023-09-02] MEDS: HEPARIN 5000 UNITS SC (20:51)
[2023-09-02] MEDS: LAMICTAL 200 MG PO (20:51)
[2023-09-02] MEDS: FLAGYL 500 MG 100 IV (20:52)
[2023-09-02] MEDS: STERILE WATER FOR INJECTION 10 ML IV (20:53)
[2023-09-02] MEDS: ROCEPHIN 1000 MG IV (20:53)
[2023-09-02] MEDS: ZOFRAN 4 MG IV (21:18)
--- NOTE | 2023-09-02 21:29 | PTCARENOTE ---
pt with episode of vomiting, denies nausea prior. PRN zofran given. pt denies nausea after episode. pt cleaned and oral care provided. cool towel placed on forehead for comfort. care ongoing.
[2023-09-02] MEDS: SODIUM CHLORIDE 3% 250 IV (22:14)
[2023-09-02 23:08] LABS: Blood Urea Nitrogen 42 mg/dl (7-17); Calcium 10.6 mg/dl (8.4-10.2); Carbon Dioxide 21 mmol/L (22-30); Chloride 95 mmol/L (98-107); Creatine Phosphokinase 25 U/L (30-135); Estimated Creatinine Clearance 23 ml/min; Glucose 105 mg/dl (70-99); Lithium 1.8 mmol/L (0.6-1.2); Potassium 3.1 mmol/L (3.5-5.1); Sodium 123 mmol/L (135-145); eGFR 15.41
[2023-09-02] MEDS: KCL 40 MEQ PO (23:17)
[2023-09-02] MEDS: TYLENOL 650 MG PO (23:17)
[2023-09-03] VITALS (24 sets, daily range): BP systolic 93–126; BP diastolic 55–99; BMI 34.5
--- NOTE | 2023-09-03 00:04 | PTCARENOTE ---
patient reassessed. MS unchanged. 3% NS infusing per nephrology. PRN tylenol given for temp 100.8. potassium repleted, see MAR. remains ST on monitor. 2L NC applied for O2 sat low 90s. johnson draining yellow urine. pt repositioned with assistance.
at beside, updated on plan of care.
[2023-09-03 03:06] LABS: % Basophils 0.4 % (0-2); % Eosinophils 0.6 % (0-6); % Immature Granulocytes 0.9 % (0-0.5); % Lymphocytes 3.1 % (20.5-51.1); % Monocytes 4.5 % (1.7-9.3); % Neutrophils 90.5 % (42.2-75.2); Absolute Basophils 0.1 10^3/uL (0-0.2); Absolute Eosinophils 0.1 10^3/uL (0-0.7); Absolute Immature Granulocytes 0.2 10^3/uL (0-0.05); Absolute Lymphocytes 0.8 10^3/uL (1.2-3.4); Absolute Monocytes 1.1 10^3/uL (0.1-0.6); Absolute Neutrophils 22.8 10^3/uL (1.4-6.5); Hematocrit 31.4 % (37.0-47.0); Hemoglobin 11.3 g/dL (12.0-16.0); Mean Corpuscular Hgb 30.5 pg (27.0-31.0); Mean Corpuscular Volume 84.9 fL (81.0-99.0); Mean Platelet Volume 9.6 fL (7.4-10.4); Nucleated Red Blood Cells % 0 %; Platelet Count 242 10^3/uL (130-400); Red Cell Dist. Width 12.8 % (11.5-14.5); White Blood Cell Count 25.2 10^3/uL (4.8-10.8)
[2023-09-03 03:18] LABS: ALT (SGPT) 14 U/L (0-35); AST (SGOT) 21 U/L (14-36); Albumin 3.2 g/dl (3.5-5.0); Alkaline Phosphatase 150 U/L (38-126); Blood Urea Nitrogen 44 mg/dl (7-17); Calcium 10.4 mg/dl (8.4-10.2); Carbon Dioxide 21 mmol/L (22-30); Chloride 97 mmol/L (98-107); Creatine Phosphokinase < 20 U/L (30-135); Estimated Creatinine Clearance 21 ml/min; Glucose 100 mg/dl (70-99); Lithium 1.8 mmol/L (0.6-1.2); Potassium 3.3 mmol/L (3.5-5.1); Sodium 128 mmol/L (135-145); Total Bilirubin 0.4 mg/dl (0.2-1.3); Total Protein 5.8 g/dl (6.3-8.2); eGFR 13.58
[2023-09-03 03:28] LABS: Blood Urea Nitrogen 45 mg/dl (7-17); Calcium 10.3 mg/dl (8.4-10.2); Carbon Dioxide 20 mmol/L (22-30); Chloride 98 mmol/L (98-107); Estimated Creatinine Clearance 21 ml/min; Glucose 98 mg/dl (70-99); Potassium 3.6 mmol/L (3.5-5.1); Sodium 128 mmol/L (135-145)
[2023-09-03 03:32] LABS: Vitamin D, 25-OH*** 22.1 ng/mL (30-80)
[2023-09-03 03:45] LABS: Cortisol, Random 32.1 ug/dl
[2023-09-03] MEDS: FLAGYL 500 MG 100 IV ×3 (04:26→19:45)
--- NOTE | 2023-09-03 04:33 | PTCARENOTE ---
pt reassessed. remains oriented, denies pain. sleeping but arousable to voice. ST on monitor. afebrile. remains on 2L NC. continue with NPO status. johnson intact, Q1H I&Os. AM labs sent. 3% NS continues, repeat Na 128. at bedside overnight.
care ongoing.
[2023-09-03 06:55] LABS: Lactic Acid 0.8 mmol/L (0.7-2.0)
[2023-09-03 07:19] LABS: Blood Urea Nitrogen 47 mg/dl (7-17); Calcium 10.1 mg/dl (8.4-10.2); Carbon Dioxide 18 mmol/L (22-30); Chloride 100 mmol/L (98-107); Estimated Creatinine Clearance 21 ml/min; Glucose 95 mg/dl (70-99); Potassium 3.9 mmol/L (3.5-5.1); Sodium 129 mmol/L (135-145); eGFR 13.58
--- NOTE | 2023-09-03 07:42 | CON.INTV ---
Consultation
Consultation Request
Date/Time Consultation Requested: 09/03/2023-7 AM
Date/Time Consultation Performed: 09/03/2023-7:30 AM
Requesting Provider: Hospitalist
Performing Provider: Dr. Tee
Reason for Consultation: [place] toxicity/critical care management
Medical History
-
Chief Complaint: [place] toxicity
History of Present Illness:
43-year-old female with a history of cerebral palsy, bipolar disorder, seizure disorder and history of arachnoid cyst who presented with altered mental status noted to have lithium toxicity and acute renal failure-flood control engineer consulted for lithium
toxicity/acute renal failure/critical care management 09/03/2023. She is alert and oriented and denies any shortness of breath, chest pain, chest tightness, wheezing, mucus, abdominal pain, weakness, or lower extremity edema.
Past Medical History
Past Medical History: None (Cerebral palsy. Bipolar disorder on lithium. Seizure disorder. Arachnoid cyst.)
Social History
Tobacco: Former Smoker (Briefly in college)
Alcohol: None
Drug: None
Personal:
Living: With Family
Occupational Exposures: No known asbestos exposure
Environmental Exposures: No known tuberculosis exposure
Family History
Family History: Reviewed & Not Pertinent
Allergies / Home Medications
Allergies
Allergy/AdvReac Type Severity Reaction Status Date / Time
No Known Allergies Allergy Unverified 09/02/23 15:13
Home Medications
Medication Instructions Recorded Confirmed Last Taken Type
lamotrigine 200 mg tablet 200 mg PO BID 09/02/23 09/02/23 Unknown History
lithium carbonate 300 mg tablet 300 mg PO BID@0800,1800 09/02/23 09/02/23 Unknown History
lithium carbonate 300 mg tablet 600 mg PO HS 09/02/23 09/02/23 Unknown History
venlafaxine 150 mg 150 mg PO DAILY 09/02/23 09/02/23 Unknown History
capsule,extended release 24 hr
Review of Systems
-
Unable to Obtain full review of systems at this time due to: Other (Per HPI)
Vitals / Labs / Diagnostic Testing
Vital Signs
Temp Pulse Resp BP Pulse Ox
98.9 F 84 24 109/67 97
09/03/23 07:39 09/03/23 06:00 09/03/23 06:00 09/03/23 06:00 09/03/23 06:00
Lab Data
09/03/23 02:42
Laboratory Results
09/02/23
15:23
PT 15.6 H
INR 1.23
APTT 40.2 H
Diagnostic Testing:
Physical Exam
-
Exam:
Well-nourished and well-developed in no apparent distress
HEENT-atraumatic, normocephalic
Neck-supple, no JVD, no bruit
Heart-regular rate and rhythm-no murmurs, rubs or gallops
Chest-clear to auscultation, no wheezes, crackles
Back-no tenderness
Abdomen-soft, nontender, nondistended, no hepatosplenomegaly
Extremities-no cyanosis, clubbing, edema and good peripheral pulses
Integument-intact, no rashes, lesions or ecchymosis
Neurology-alert and oriented, nonfocal motor and sensory exam
Assessment
-
43-year-old female with a history of cerebral palsy, bipolar disorder, seizure disorder and history of arachnoid cyst who presented with altered mental status noted to have lithium toxicity and acute renal failure-flood control engineer consulted for lithium
toxicity/acute renal failure/critical care management 09/03/2023.
Assessment
Toxic metabolic encephalopathy
Seizure
[place] toxicity
MARIS
Hyponatremia
Suspected aspiration pneumonia
Hypercalcemia
Leukocytosis
Elevated alkaline phosphatase
Mild hypercalcemia
Metabolic acidosis
Mild anemia-hemoglobin 11.3-normocytic
Vitamin D deficiency
Positive blood gqauzig-epvw-lpmtvgvo bacilli
Conditions present prior to admission:
Cerebral palsy.
Bipolar disorder on lithium.
Seizure disorder.
Arachnoid cyst.
Plan
Patient admitted to ICU for close observation and potential need for emergent dialysis due to lithium toxicity
Suspect systemic illness first, dehydration, progressive renal failure and then the lithium toxicity
Supplemental oxygen
Aspiration precautions
Nebulizers if needed-currently not bronchospastic
Incentive spirometry
[place] toxicity noted
Follow lithium levels
Monitor for arrhythmias including QT prolongation and bradycardia arrhythmias
Monitor for ataxia and confusion
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
Consider hemodialysis
Nephrology following
Renal ultrasound
Replacing sodium and 3% saline considered-changed to NSS
Neurology consultation
Seizure precautions
Consider EEG
Neurosurgical consultation
Check cultures
Blood cultures positive for gram-negative bacilli
Empiric antibiotics
Follow chest x-ray
Eventual vitamin D replacement
DVT prophylaxis-on subcu heparin
Nutrition
Early mobilization
Critical care statement: A total of 50 minutes of critical care time was provided for this patient today. This includes management of unstable vital signs, evaluation of the patient at bedside, reviewing the patient's pertinent medical records
including radiographs, microbiology, laboratory evaluations, and discussion with primary team, consultants, pharmacy, nutrition, physical therapy, case management, charge nurse, critical care nursing, and respiratory therapy.
Diagnostic data:
Chest x-ray 09/02/2023-bibasilar atelectasis, increased stranding in both lung bases representing atelectasis
CT head 09/02/2023-large cystic structure left side cerebrum most consistent with giant arachnoid cyst, no significant downward herniation or midline shift, no acute intracranial process
Data Reviewed
-
EKG: Report reviewed by me
Radiology: Report reviewed by me
CT Scan: Report reviewed by me
Medical Tests (Nuc Med, Echo etc): Report reviewed by me
Labs: Labs reviewed by me
Old Records: Reviewed
Critical Care Time (in minutes): 50
--- NOTE | 2023-09-03 08:10 | W.PN.NEPH.PH ---
Today's Communication / Plan
-
d/c 3%
start NSS at 100cc/hr
closely monitor sodium levels q4hrs
maintain johnson
holding HD today
follow lithium
Assessment/Plan
-
IMP:
AMS/confusion
Hyponatremia
MARIS-cr was 1 in 09/2022
Mild hypercalcemia
[place] toxicity
Elevated ALP
leucocytosis
Giant arachnoid cyst of brain
SZDO
Bipolar
Cerebral palsy
GN bacteremia
Plan:
MARIS unchanged but grossly non oliguric
will obtain serologies given active urine sediment
P/w confusion, SZ 2days ago
Hyponatremia-likely symptomatic however seem to be polydipsia -4lit/day
check Uosmo ~135 U na- low osm
was provided 3% saline last evening and sodium up to 129, will now stop 3%
continue intensive monitoring of lytes
will change IVFs to NSS at 100cc/hr to help with clearance of lithium
maintain johnson
MARIS-last cr 1 , one yr ago. place johnson, check UA and Fena
Urinalysis notes blood and urine protein to creatinine ratio 3.3 g not consistent with [place] tubular interstitial disease
also checking renal US
she may have underlying CKD with chr lithium use
Li levels down 1.8, hold Li, need psych input to find alternative
if no improvement seen likely she needs HD-reviewed with pt and
Hypercalcemia-likely from Li related, check PTH and vit D
monitor L acid
d/w ER, primary team
d/w pt and in detail
CC time spent 35min
Total Time Spent with Patient (in minutes): 35
-
-
Date of Service: September 03, 2023
CC / HPI / ROS
-
Chief Complaint:
MARIS
Hyponatremia
[place] toxicity
History of Present Illness:
lithium slowly drifting down to 1.8
hemodynamically low sided
creatinine unchanged at 4
now with GN bacteremia
Review of Systems:
non oliguric via johnson
febrile
no chest pain or sob
neurologically intact
Labs
-
Labs:
WBC 25.2 10^3/uL (4.8-10.8) H 09/03/23 02:42
RBC 3.70 10^6/uL (4.20-5.40) L 09/03/23 02:42
Hgb 11.3 g/dL (12.0-16.0) L 09/03/23 02:42
Hct 31.4 % (37.0-47.0) L 09/03/23 02:42
Plt Count 242 10^3/uL (130-400) 09/03/23 02:42
eGFR 13.58 09/03/23 06:24
Phosphorus 2.5 mg/dl (2.5-4.5) 09/02/23 16:54
Albumin 3.2 g/dl (3.5-5.0) L 09/03/23 02:42
Physical Exam
-
Vital Signs:
Vital Signs
Temp Pulse Resp BP Pulse Ox
98.9 F 87 23 99/66 93
09/03/23 07:39 09/03/23 08:00 09/03/23 08:00 09/03/23 08:00 09/03/23 08:07
Cardiovascular:: Regular rate and rhythm
Respiratory:: Bilateral: CTA
Lung Excursion:: Normal
Abdomen:: Nontender and Soft
Bowel Sounds:: Normal
Extremity Edema:: None: Bilateral:
Johnson Catheter: Yes
--- NOTE | 2023-09-03 08:58 | W.PN.HOSP.TC ---
Today's Communication/Plan
-
IV antibiotics. IV fluids of normal saline. Monitor sodium, creatinine, lithium levels.
Assessment / Plan
Assessment / Plan
Physical exam:
General: Acutely ill
HEENT: Normocephalic, Atraumatic and Moist Mucous Membranes
Respiratory: Clear to Auscultation; Negative Wheezes, Rales or Rhonchi
Cardiac: Regular Rhythm and S1/S2
GI: Soft, Nontender and Nondistended
Musculoskeletal: Contractures in both right upper and lower extremities.� No Clubbing, No Cyanosis and No Edema
Neuro: Awake, Alert and Oriented, cognitively intact. Right side spastic and paretic. Nystagmus present.
Psych: Calm
A/P:
Impression:
Altered mental status-toxic metabolic encephalopathy
Seizures
[place] toxicity, lithium 1.9 in the setting of acute kidney injury
Large left frontal arachnoid cyst
Acute kidney injury, creatinine 4 (unknown baseline)
Hyponatremia, sodium 129 latest
Hyperglycemia
Aspiration pneumonia/urinary tract infection
Positive blood cultures, gram-negative
Elevated alkaline phosphatase
Conditions prior to presentation:
Cerebral palsy
Seizures
Probably CKD
Bipolar disorder
PLAN:
Continue Lamictal, current home doses
Continue seizure precautions
Discussed with neurology today on 09/02
Appreciated nephrology consult and follow-up--> nephrology started on normal saline at 100 cc/h and discontinue 3% saline. Discussions about hemodialysis if and when needed will defer to nephrology.
Urine sodium 10, urine osmolarity 138, serum osmolarity 273, TSH 1.8, cortisol 32
Continue IV Rocephin and Flagyl
Follow-up cultures final identification and repeat blood cultures today
Reviewed renal ultrasound results
Appreciate neurosurgery input--> neurosurgery will check prior images and if stable no further intervention required.
Appreciate psychiatry input-->Decrease venlafaxine to 112.5 mg daily
No lithium in light of toxicity
Repeat lithium levels tomorrow
Continue cardiac monitoring
PT OT eval
Heparin SQ for DVT prophylaxis
CODE STATUS full code
Total time spent on today's encounter was 65 minutes which included time spent in counseling the patient/family regarding diagnosis and treatment plan as listed above, goals of care, and symptom management. Case was discussed with nursing staff,
specialists, and care coordinators/case management. All labs and imaging personally reviewed by me. Remainder the time spent in detailed review of previous records, lab data, imaging, and other medical provider documentation.
Anticipated Discharge: > 48 hours
Subjective/Interval History
-
Date of Service: September 03, 2023
Patient alert and oriented today. No seizure-like activity today. Afebrile.
Objective Data
-
Labs:
Laboratory Results
09/02/23 09/03/23 09/03/23
22:29 02:42 02:42
WBC 25.2 H
Hgb 11.3 L
Hct 31.4 L
Plt Count 242
Sodium 123 L 128 L 128 L
Potassium 3.1 L 3.3 L
Chloride 95 L
Carbon Dioxide 21 L
BUN 42 H
Creatinine 3.6 H
Glucose 105 H
Calcium 10.6 H
Total Bilirubin
AST
ALT
Alkaline Phosphatase
09/03/23 09/03/23 09/03/23
02:42 02:42 02:42
WBC
Hgb
Hct
Plt Count
Sodium
Potassium 3.6
Chloride 97 L 98
Carbon Dioxide 21 L 20 L
BUN 44 H
Creatinine
Glucose
Calcium
Total Bilirubin
AST
ALT
Alkaline Phosphatase
09/03/23 09/03/23 09/03/23
02:42 02:42 02:42
WBC
Hgb
Hct
Plt Count
Sodium
Potassium
Chloride
Carbon Dioxide
BUN 45 H
Creatinine 4.0 H 3.9 H
Glucose 100 H 98
Calcium 10.4 H
Total Bilirubin
AST
ALT
Alkaline Phosphatase
09/03/23 09/03/23 09/03/23
02:42 06:00 06:24
WBC
Hgb
Hct
Plt Count
Sodium Cancelled 129 L
Potassium Cancelled 3.9
Chloride Cancelled 100
Carbon Dioxide Cancelled 18 L
BUN Cancelled 47 H
Creatinine Cancelled 4.0 H
Glucose Cancelled 95
Calcium 10.3 H Cancelled 10.1
Total Bilirubin 0.4
AST 21
ALT 14
Alkaline Phosphatase 150 H
09/03/23 09/03/23
11:00 15:00
WBC
Hgb
Hct
Plt Count
Sodium Pending Pending
Potassium Pending Pending
Chloride Pending Pending
Carbon Dioxide Pending Pending
BUN Pending Pending
Creatinine Pending Pending
Glucose Pending Pending
Calcium Pending Pending
Total Bilirubin
AST
ALT
Alkaline Phosphatase
Vital Signs:
Vital Signs
Temp Pulse Resp BP Pulse Ox
98.9 F 87 23 99/66 93
09/03/23 07:39 09/03/23 08:00 09/03/23 08:00 09/03/23 08:00 09/03/23 08:07
I&O
09/02/23 09/03/23 09/04/23
06:59 06:59 06:59
Intake Total 220 / 235 30 / 30
Output Total 950 / 950 100 / 100
Balance -730 / -715 -70 / -70
Review of Systems
-
All other systems: Reviewed and negative
[2023-09-03] MEDS: HEPARIN 5000 UNITS SC ×2 (09:25→19:46)
[2023-09-03] MEDS: LAMICTAL 200 MG PO ×2 (09:46→19:46)
--- NOTE | 2023-09-03 10:43 | PTCARENOTE ---
pt had bedside ultrasound. set up to eat breakfast once complete
--- NOTE | 2023-09-03 11:59 | PTCARENOTE ---
Addendum entered by Krystal Bass RN 09/03/23 18:19:
systems reviewed, no changes.
Original Note:
have now attempted 3 times without success to draw labs as ordered. political consultant notified.
--- NOTE | 2023-09-03 12:17 | CM ---
CM following re: discharge planning.
Discussed in Rounds, reviewed pt's chart, met with pt and pt's at bedside. Pt's Harry confirmed that he and the pt got last February.
Pt is a 43 year old female, admitted with primary dx of Toxic metabolic encephalopathy, Seizure, [place] toxicity, MARIS. Nephrology following.
Pt reports she lives with in a 2SH, 2 steps to enter has no children. During interview, most questions answered by Harry and pt replied: 'he is very dramatics and I am not, staying positive'. Pt described herself as independent
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 No DME, VN or SNF history.
PT and OT will evaluate the pt to determine a level of care at discharge.
PCP: Joseph Burleson
Pharmacy: [facility]
D/C plan: most likely home with VN services. Will follow Nephrology recommendation.
CM will follow with discharge plan updates as hospitalization prioresses
[2023-09-03 13:01] LABS: Blood Urea Nitrogen 50 mg/dl (7-17); Calcium 10.3 mg/dl (8.4-10.2); Carbon Dioxide 20 mmol/L (22-30); Chloride 102 mmol/L (98-107); Estimated Creatinine Clearance 20 ml/min; Glucose 109 mg/dl (70-99); Potassium 4.2 mmol/L (3.5-5.1); Sodium 130 mmol/L (135-145); eGFR 12.81
--- NOTE | 2023-09-03 13:10 | PTCARENOTE ---
labs, i/o reviewed with nephrology. repeat labs due at 1600
--- NOTE | 2023-09-03 14:03 | CON.MD ---
Addendum entered and electronically signed by Mariposa Crow MD 09/03/23 15:15:
pharmacy expressing a lot of concern re serotonin syndrome given current meds/lithium toxicity etc. there is also issue w renal clearance of effexor. will decrease to 75 hoping to avoid withdrawal sx and avoid further complications of her illness
Original Note:
Consultation - Medical
-
patient seen chart reviewed. discussed w nursing. and mother in law at bedside. patient is 43 years old. she was dx w bipolar disorder and has experienced both manic and depressive episodes over the years. she was hospitalized once many
years ago after she superficially cut her wrist. patient did not want to kill herself at that time and says she has never been suicidal. interjected here and said she was trying to 'get to me...' the patient has been maintained on psych
meds by her pcp lamictal total 600 mg daily for sz d.o effexor 150 mg daily and lithium a total of 1200 mg daily. she noted in the past several days difficulty with word finding, gait disturbance, tremor and urinary incontinence. she came to er and
was found to have a lithium level of 1.9. other electrolyte abnormalities noted as well including NA of 124 wbc 27.4 creatinine 3.5 elevated phosphate all of which can be related to the lithium toxicity. she is being followed by nephrology and
discussion held as to whether to dialyze for the moment hydrating. labs pending from today. CAT showed arachnoid cyst cxr stranding both lung bases. the patient has Cerebral palsy and left weakness. the patient feels with the exception of this
toxicity that her medications were helping her maintain mood stabiity. she is not currently manic or particularly depressed . at one point she said she felt manic but she looked decidedly unmanic. i asked her what her sx were and she said thoughts
were racing. i suspect this is more anxiety given the situation rather than manic as there was nothing hyperenergetic about her presentation.
past psych hx one hospitalization some years ago. nothing recently she does not have a psych as when she went on a advantage plan in the [place] she lost her provider. she sees pcp once yearly if that. she last had a lithium level in 2019
medical see above
fh patient says none says everyone in her family has psych issues
substance abuse denied
social one year. with partner for 23 years. 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 she loves to read
mse alert ox3 cooperative pleaant speech and thought process normal. no unusual behaviors noted mood is neutral appropriate anxiety re the situation aver intelligence insight judgment fair cognition adequate
dx bipolar unspecified
recommendations it is a pity her lithium levels were not followed as if this were nipped in the bud we might have avoided this situation and she could have continued on lithium. levels should be done on the order of every three months or so in a
stable patient. no lithium at this point. lamotrogine may also do the job of mood stabilization in addition to seizures. i am concerned about continuing effexor with hyponatremia but h insistent that she needs it decreased dose to 112.5 and it
should be monitored closely. could use small doses of ativan prn if needed for anxiety (0.5 mg) i did not order it as she seems to be coping adequately. psych will follow
--- NOTE | 2023-09-03 14:36 | CON.NS ---
Consultation
-
Date/Time Consultation Performed: 09/03/2023, 14:36
Performing Provider: Karyn
Chief Complaint
History of Present Illness
This is a neurosurgical consultation on a 43-year-old female, with past medical history of cerebral palsy, bipolar disorder, seizure disorder, who presented with altered mental status.
Per chart report, patient was having intermittent headaches and confusion with increased tremors in bilateral lower extremities over the past several days. Patient was found to be hyponatremic with a serum sodium level of 124, and lithium level
elevated at 1.9. Her creatinine was also noted to be 3.5. She had a noncontrast head CT, which demonstrated a left frontal cystic structure. Neurosurgery consulted for further input and evaluation.
Patient seen and examined. Serum sodium levels up to 129, but creatinine continues to be elevated now at 4.0. is at bedside. reports that they have noted about the cyst in the left frontal brain since 2005. At that time, the
reports that he was told that this is probably something that has been longstanding and chronic in nature, and is not causing any symptoms. He reports that the CT scan was done at [facility] in 2005, and he also has previous MRI scans
that he will be bringing in for comparison. Patient offers no complaints.
Medication and Allergies
Home Medications
Home Medications
Medication Instructions Recorded
lamotrigine 200 mg tablet 200 mg PO BID Seizures 09/02/23
lithium carbonate 300 mg tablet 300 mg PO BID@0800,1800 Bipolar 09/02/23
Disorder
lithium carbonate 300 mg tablet 600 mg PO HS Bipolar Disorder 09/02/23
venlafaxine 150 mg 150 mg PO DAILY Mental 09/02/23
capsule,extended release 24 hr Health/Anxiety
Allergies
Allergies
Allergy/AdvReac Type Severity Reaction Status Date / Time
No Known Allergies Allergy Unverified 09/02/23 15:13
Physical Exam
-
Exam:
Lethargic, but awakens easily and follows commands.
Pupils are reactive. Disconjugate gaze. Nystagmus on right greater than left lateral gaze
Face is symmetric, tongue is midline.
Right arm and right leg spastic and paretic, baseline.
Full strength in left arm and left leg.
Head is normocephalic atraumatic. Neck is supple
Breathing unlabored
Cardiac: Normal rate and rhythm.
Abdomen is soft
Extremities are warm
Noncontrast CT scan of the head performed on 09/02/2023 demonstrates a large left frontal hypodense cystic structure with multiple septations. There is also thinning of the overlying skull noted. No previous imaging studies are available for
comparison.
Problems
-
Problem Status Onset Code
Elevated lithium level R79.89
Leukocytosis D72.829
Assessment / Plan
-
This was a 43-year-old female who presents with altered mental status, found to be hyponatremic, with past medical history of seizure disorder, cerebral palsy, elevated lithium levels and elevated creatinine. Noncontrast CT scan demonstrates a left
frontal large, likely arachnoid cyst. No previous imaging studies are available at this institution for comparison. According to the , left frontal cyst was diagnosed in 2005, and he has previous imaging studies at home for comparison. I
advised the to bring these scans and if possible. If indeed arachnoid cyst is stable and comparable in size, no further intervention or workup needed. Continue to treat metabolic derangements.
[2023-09-03 15:31] LABS: Hepatitis B Surface Antigen Negative (Negative)
[2023-09-03] MEDS: TYLENOL 650 MG PO (15:43)
--- NOTE | 2023-09-03 15:45 | PTCARENOTE ---
systems reviewed. pt just c/o 'feeling tired' again. low grade temp. medicated as charted with tylenol. pt otherwise without complaint. oxygen level 89% pt denies sob, appears in nad, placed on 2lnc. otherwise no changes,
[2023-09-03 15:49] LABS: Hepatitis B Surface Antibody Positive
[2023-09-03 16:13] LABS: Blood Urea Nitrogen 48 mg/dl (7-17); Calcium 10.5 mg/dl (8.4-10.2); Carbon Dioxide 21 mmol/L (22-30); Chloride 101 mmol/L (98-107); Estimated Creatinine Clearance 18 ml/min; Glucose 137 mg/dl (70-99); Potassium 3.4 mmol/L (3.5-5.1); Sodium 133 mmol/L (135-145); eGFR 11.79
[2023-09-03 16:56] LABS: Lithium 1.7 mmol/L (0.6-1.2)
[2023-09-03] MEDS: NSS 1000 IV ×2 (17:05→17:58)
[2023-09-03] MEDS: KLOR-CON 20 MEQ PO (17:49)
[2023-09-03] MEDS: STERILE WATER FOR INJECTION 10 ML IV (19:47)
[2023-09-03] MEDS: ROCEPHIN 1000 MG IV (19:47)
--- NOTE | 2023-09-03 20:00 | PTCARENOTE ---
Received patient at 1900. Pt. awake, alert, and oriented. No complaints of pain or discomfort at this time. Afebrile. Heart rhythm sinus. Blood pressure normotensive. Pt. currently on 2L nasal cannula. Lungs sound diminished. Pt. has regular diet
ordered with fluid restriction. Carrero catheter in place, draining without issue. Skin as documented. Discussed plan of care with patient. Vital signs stable at this time.
[2023-09-04] VITALS (18 sets, daily range): BP systolic 101–165; BP diastolic 56–91; PULSE 85; O2SAT 96; BMI 33.4
--- NOTE | 2023-09-04 00:29 | PTCARENOTE ---
Pt. assessment unchanged. Neuro check remains normal. Pt. has no complaints of pain or discomfort. IVF continuing at 150ml/hr. Urine output has been decent. Vital signs stable at this time.
[2023-09-04] MEDS: NSS 1000 IV ×2 (01:21→10:06)
[2023-09-04] MEDS: FLAGYL 500 MG 100 IV ×3 (03:20→20:14)
--- NOTE | 2023-09-04 03:40 | PTCARENOTE ---
Pt. assessment remains unchanged. AM labs drawn. Vital signs stable at this time.
[2023-09-04 04:03] LABS: % Basophils 0.4 % (0-2); % Eosinophils 1.6 % (0-6); % Immature Granulocytes 0.4 % (0-0.5); % Lymphocytes 4.5 % (20.5-51.1); % Monocytes 5.5 % (1.7-9.3); % Neutrophils 87.6 % (42.2-75.2); Absolute Basophils 0.1 10^3/uL (0-0.2); Absolute Eosinophils 0.2 10^3/uL (0-0.7); Absolute Immature Granulocytes 0.1 10^3/uL (0-0.05); Absolute Lymphocytes 0.6 10^3/uL (1.2-3.4); Absolute Monocytes 0.7 10^3/uL (0.1-0.6); Absolute Neutrophils 11.7 10^3/uL (1.4-6.5); Hematocrit 38.6 % (37.0-47.0); Hemoglobin 12.6 g/dL (12.0-16.0); Mean Corp Hgb Conc. 32.6 g/dL (33.0-37.0); Mean Corpuscular Hgb 29.7 pg (27.0-31.0); Mean Platelet Volume 9.9 fL (7.4-10.4); Nucleated Red Blood Cells % 0 %; Platelet Count 258 10^3/uL (130-400); Red Blood Cell Count 4.24 10^6/uL (4.20-5.40); Red Cell Dist. Width 13.8 % (11.5-14.5); White Blood Cell Count 13.4 10^3/uL (4.8-10.8)
[2023-09-04 04:34] LABS: ALT (SGPT) 14 U/L (0-35); AST (SGOT) 21 U/L (14-36); Albumin 3.2 g/dl (3.5-5.0); Alkaline Phosphatase 177 U/L (38-126); Blood Urea Nitrogen 48 mg/dl (7-17); Calcium 10.4 mg/dl (8.4-10.2); Carbon Dioxide 18 mmol/L (22-30); Chloride 111 mmol/L (98-107); Estimated Creatinine Clearance 19 ml/min; Glucose 112 mg/dl (70-99); Lithium 1.5 mmol/L (0.6-1.2); Sodium 137 mmol/L (135-145); Total Bilirubin 0.5 mg/dl (0.2-1.3); Total Protein 5.9 g/dl (6.3-8.2); eGFR 12.45
--- NOTE | 2023-09-04 07:05 | W.PN.INTV ---
Today's Communication / Plan
Recommendations
Follow lithium level
Normal saline
Follow electrolytes
Consider dialysis if does not improve
Eventual renal MRI or CT
Assessment
-
43-year-old female with a history of cerebral palsy, bipolar disorder, seizure disorder and history of arachnoid cyst who presented with altered mental status noted to have lithium toxicity and acute renal failure-scene painter consulted for lithium
toxicity/acute renal failure/critical care management 09/03/2023.
Assessment
Toxic metabolic encephalopathy
Seizure
[place] toxicity
MARIS
Hyponatremia
Suspected aspiration pneumonia
Hypercalcemia
Leukocytosis
Elevated alkaline phosphatase
Mild hypercalcemia
Metabolic acidosis
Mild anemia-hemoglobin 11.3-normocytic
Vitamin D deficiency
Positive blood njfvbfi-djgg-bogfzdco bacilli
Conditions present prior to admission:
Cerebral palsy.
Bipolar disorder on lithium.
Seizure disorder.
Arachnoid cyst.
Plan
Remains critically ill with acute renal failure lithium toxicity
Once again suspect systemic illness first, dehydration, progressive renal failure and then the lithium toxicity
Supplemental oxygen as needed
Aspiration precautions
Nebulizers if needed-currently not bronchospastic
Incentive spirometry
[place] toxicity-follow lithium levels-lithium level slowly decreasing now 1.5
Continue to monitor for arrhythmias including QT prolongation and bradycardia arrhythmias
Continue to monitor for ataxia and confusion
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
Consider hemodialysis-has not needed to thus far
Nephrology following-reviewed with Dr. Ramírez
Renal ultrasound 09/03/2023-no hydronephrosis, possible 2.8 cm mass in the region of left kidney-possible complex cyst, MRI or CT of the kidneys recommended
Normal saline continues-now normal at 137
Random cortisol adequate
TSH normal
Neurology consultation noted
Continue Lamictal
Check SPEP
Seizure precautions
Consider EEG
Neurosurgical consultation noted--awaiting films from [id number] when she reportedly had stable not enlarging cyst-Dr. Tee reminded 09/04/2023 to obtain films
Check cultures
Blood cultures positive for gram-negative bacilli
Empiric antibiotics
Follow chest x-ray
Leukocytosis improved
Eventual vitamin D replacement
Psychiatry evaluation noted
[place] levels every 3 months recommended
Ativan as needed for anxiety
DVT prophylaxis-on subcu heparin
Nutrition
Early mobilization
Dr. Tee reviewed with at the bedside-09/04/2023-reviewed renal ultrasound findings and need for further imaging
Critical care statement: A total of 40 minutes of critical care time was provided for this patient today. This includes management of unstable vital signs, evaluation of the patient at bedside, reviewing the patient's pertinent medical records
including radiographs, microbiology, laboratory evaluations, and discussion with primary team, consultants, pharmacy, nutrition, physical therapy, case management, charge nurse, critical care nursing, and respiratory therapy.
Diagnostic data:
Chest x-ray 09/02/2023-bibasilar atelectasis, increased stranding in both lung bases representing atelectasis
CT head 09/02/2023-large cystic structure left side cerebrum most consistent with giant arachnoid cyst, no significant downward herniation or midline shift, no acute intracranial process
Subjective Dataa
Subjective Data
Date of Service:
Date of Service: September 04, 2023
Chief Complaint: Stripper Preliminary Follow Up
Subjective:
No complaints of shortness of breath, chest pain, chest congestion, productive cough, or abdominal pain, still with some mental sluggishness according to her
Review of Systems
General: Other (Per HPI)
Objective Data
Data Reviewed
Vital Signs / I&O / Oxygen:
Vital Signs
Temp Pulse Resp BP Pulse Ox
98.8 F 93 27 124/70 94
09/04/23 04:00 09/04/23 06:02 09/04/23 06:02 09/04/23 06:02 09/04/23 04:00
Intake and Output
09/03/23 09/04/23 09/05/23
06:59 06:59 06:59
Intake Total 220 / 235 4440 / 4440
Output Total 950 / 950 1695 / 1695
Balance -730 / -715 2745 / 2745
SaO2 94
Nasal Cannula flow liters per 2
minute
Physical Exam
HEENT: Normocephalic and Anicteric
Cardiovascular: Regular Rhythm
Respiratory: Wheeze (n), Crackles (n), Rhonchi (n), Non-Labored Respirations, Accessory Resp Muscle Use (n) and Stridor (n)
GI: Soft, Non Distended and Non Tender
Neurology: Awake, Alert and No Motor Deficits
Skin: Warm, Good Color, Cyanosis (n) and Jaundice (n)
Labs/Micro/Reports
Lab Data
09/04/23 03:35
09/04/23 03:35
Microbiology
09/02/23 18:32 Urine Urine Culture - Preliminary
Escherichia coli
09/02/23 18:19 Blood/Venous Blood Culture - Preliminary
Escherichia coli
09/02/23 18:19 Blood/Venous Gram Stain - Final
09/02/23 18:20 Blood/Venous Blood Culture - Preliminary
Positive culture in progress
09/02/23 18:20 Blood/Venous Gram Stain - Preliminary
[2023-09-04] MEDS: EFFEXOR XR 75 MG PO (07:53)
[2023-09-04] MEDS: HEPARIN 5000 UNITS SC ×2 (07:53→20:14)
[2023-09-04] MEDS: LAMICTAL 200 MG PO ×2 (07:53→20:14)
--- NOTE | 2023-09-04 09:40 | W.PN.NEPH.PH ---
Today's Communication / Plan
-
Maintain normal saline
Maintain full
Follow BMP
Loosen fluid restriction to 60 ounces daily
Assessment/Plan
-
IMP:
AMS/confusion
Hyponatremia
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
MARIS-cr was 1 in 09/2022
Mild hypercalcemia
[place] toxicity
Elevated ALP
leucocytosis
Giant arachnoid cyst of brain
SZDO
Bipolar
Cerebral palsy
GN bacteremia
Left renal mass 2.8cm
Plan:
MARIS with some noted improvement with creatinine 4.3
Grossly nonoliguric with urine output of around 1600 cc
[place] level down to 1.5
obtained serologies given active urine sediment
Renal ultrasound notes no hydronephrosis but mild medical renal disease, possible 2.8 cm interpolar left renal mass noted: Discussed with patient and and she will require MRI
Metabolic acidosis persist
Hyponatremia improved to 137
check Uosmo ~135 U na- low osm
Maintain NSS at 100c/hr to help with clearance of lithium
maintain johnson
MARIS-last cr 1 , one yr ago.
Urinalysis notes blood and urine protein to creatinine ratio 3.3 g not consistent with [place] tubular interstitial disease
she may have underlying CKD with chr lithium use but I am concerned for alternative process given active urine sediment
Li levels down 1.8, hold Li, need psych input to find alternative
if no improvement seen likely she needs HD-reviewed with pt and
Hypercalcemia-likely from Li related, checked PTH and vit D
Antibiotics renally dosed: Flagyl ceftriaxone
-
-
Date of Service: September 04, 2023
CC / HPI / ROS
-
Chief Complaint:
MARIS
Hyponatremia
[place] toxicity
History of Present Illness:
lithium slowly drifting down to 1.5
hemodynamically more stable
creatinine improved and grossly nonoliguric
now with GN bacteremia on
Review of Systems:
non oliguric via johnson
febrile
no chest pain or sob
neurologically intact
Labs
-
Labs:
WBC 13.4 10^3/uL (4.8-10.8) H 09/04/23 03:35
RBC 4.24 10^6/uL (4.20-5.40) 09/04/23 03:35
Hgb 12.6 g/dL (12.0-16.0) 09/04/23 03:35
Hct 38.6 % (37.0-47.0) 09/04/23 03:35
Plt Count 258 10^3/uL (130-400) 09/04/23 03:35
Sodium 137 mmol/L (135-145) 09/04/23 03:35
Potassium 4.0 mmol/L (3.5-5.1) 09/04/23 03:35
Chloride 111 mmol/L (98-107) H 09/04/23 03:35
Carbon Dioxide 18 mmol/L (22-30) L 09/04/23 03:35
BUN 48 mg/dl (7-17) H 09/04/23 03:35
Creatinine 4.3 mg/dL (0.6-1.0) H* 09/04/23 03:35
eGFR 12.45 09/04/23 03:35
Glucose 112 mg/dl (70-99) H 09/04/23 03:35
Calcium 10.4 mg/dl (8.4-10.2) H 09/04/23 03:35
Phosphorus 2.5 mg/dl (2.5-4.5) 09/02/23 16:54
Albumin 3.2 g/dl (3.5-5.0) L 09/04/23 03:35
Physical Exam
-
Vital Signs:
Vital Signs
Temp Pulse Resp BP Pulse Ox
98.7 F 88 25 134/76 94
09/04/23 08:10 09/04/23 08:23 09/04/23 08:23 09/04/23 08:23 09/04/23 04:00
Cardiovascular:: Regular rate and rhythm
Respiratory:: Bilateral: CTA
Lung Excursion:: Normal
Abdomen:: Nontender and Soft
Bowel Sounds:: Normal
Extremity Edema:: None: Bilateral:
Johnson Catheter: Yes
[2023-09-04 09:49] LABS: Intact PTH 90.9 pg/ml (13.6-85.8)
--- NOTE | 2023-09-04 10:02 | PTCARENOTE ---
called staff to room c/o facial droop while pt up in chair and rapid eye blinking. Pt was able to smile equally, raise eyebrows equally and follow all commands. Pt was c/o burning to eye and was tearing. Pt also c/o blurry vision,
stated last eye check up was in 2019 maybe. Did discuss the need to f/u with eye doctor, face wiped and order obtained for artificial tears which resolved burning and tearing. No further intervention.
[2023-09-04] MEDS: REFRESH EYE DROPS (PF) 1 DROPS OPHTH (10:07)
--- NOTE | 2023-09-04 12:47 | W.PN.HOSP.TC ---
Today's Communication/Plan
-
continue f/u renal function/lithium level
continue abx
transfer tele
Assessment / Plan
Assessment / Plan
Impression:
Altered mental status-toxic metabolic encephalopathy
Seizures
[place] toxicity, lithium 1.9 in the setting of acute kidney injury
Large left frontal arachnoid cyst
Acute kidney injury, creatinine 4 (unknown baseline)
Hyponatremia, sodium 129 latest
Hyperglycemia
Aspiration pneumonia/urinary tract infection
Positive blood cultures, gram-negative
Elevated alkaline phosphatase
Conditions prior to presentation:
Cerebral palsy
Seizures
Probably CKD
Bipolar disorder
PLAN:
Continue Lamictal, current home doses
Continue seizure precautions
Appreciated nephrology consult and follow-up--> nephrology started on normal saline at 100 cc/h and discontinue 3% saline. Discussions about hemodialysis if and when needed will defer to nephrology.
Good urine output in last 24hr, creatinine 4.3 today - continue monitoring.
[place] level trending down > 1.5 today
Urine sodium 10, urine osmolarity 138, serum osmolarity 273, TSH 1.8, cortisol 32
Continue IV Rocephin and Flagyl
Follow-up cultures final identification and repeat blood cultures today
Reviewed renal ultrasound results
Appreciate neurosurgery input--> neurosurgery will check prior images and if stable no further intervention required.
Appreciate psychiatry input-->Decrease venlafaxine to 112.5 mg daily
Continue cardiac monitoring
Complaining bilateral visual blurriness, no new neurological deficit
unlikely central cause with bilateral changes and no associated neuro complains . monitor.
Heparin SQ for DVT prophylaxis
CODE STATUS full code
Anticipated Discharge: > 48 hours
Subjective/Interval History
-
Date of Service: September 04, 2023
Patient sitting comfortably in bed
Complaining blurriness in vision, no scotoma. no other neuro deficit
on o2 through NC
afebrile overnight
Objective Data
-
Labs:
Laboratory Results
09/04/23
03:35
WBC 13.4 H
Hgb 12.6
Hct 38.6
Plt Count 258
Sodium 137
Potassium 4.0
Chloride 111 H
Carbon Dioxide 18 L
BUN 48 H
Creatinine 4.3 H*
Glucose 112 H
Calcium 10.4 H
Total Bilirubin 0.5
AST 21
ALT 14
Alkaline Phosphatase 177 H
Vital Signs:
Vital Signs
Temp Pulse Resp BP Pulse Ox
98.3 F 78 20 114/80 95
09/04/23 12:42 09/04/23 12:13 09/04/23 12:13 09/04/23 10:00 09/04/23 08:20
I&O
09/03/23 09/04/23 09/05/23
06:59 06:59 06:59
Intake Total 220 / 235 4440 / 4590 1470 / 1470
Output Total 950 / 950 1695 / 1695 875 / 875
Balance -730 / -715 2745 / 2895 595 / 595
Review of Systems
-
Respiratory: Reports No Symptoms
Cardiac: Reports No Symptoms
Abdomen/GI: Reports No Symptoms
Physical Exam
-
General: Appears Chronically Ill; Negative Appears in Distress
HEENT: Oxygen
Respiratory: Clear to Auscultation
Cardiac: Regular Rhythm and S1/S2; Negative Murmur
GI: Soft, Nontender and Nondistended
Musculoskeletal: No Edema
Neuro: Awake, Alert and Oriented
Psych: Calm
--- NOTE | 2023-09-04 16:13 | PN.NS ---
Subjective
-
Patient seen and examined. has MRI of the brain from August 2005 available on hard films, for review.
Physical Exam
-
Exam:
Exam:
Sitting in chair, conversant, and follows commands.
Pupils are reactive.� Disconjugate gaze.� Nystagmus on right greater than left lateral gaze
Face is symmetric, tongue is midline.
Right arm and right leg spastic and paretic, baseline.
Full strength in left arm and left leg.
Head is normocephalic atraumatic.� Neck is supple
Breathing unlabored
Cardiac: Normal rate and rhythm.
Abdomen is soft
Extremities are warm
Noncontrast CT scan of the head performed on 09/02/2023 demonstrates a large left frontal hypodense cystic structure with multiple septations.� There is also thinning of the overlying skull noted.� No previous imaging studies are available for
comparison.
This was compared to patient's MRI of the brain, the provides for review, from August. There is a similar left frontal arachnoid cyst of similar size and appearance. Therefore, current CT scan demonstrating left large frontal
arachnoid cyst is stable in size
Problems
-
Problem Status Onset Code
Elevated lithium level R79.89
Leukocytosis D72.829
Assessment / Plan
-
This was a 43-year-old female who presents with altered mental status, found to be hyponatremic, with past medical history of seizure disorder, cerebral palsy, elevated lithium levels and elevated creatinine. Noncontrast CT scan demonstrates a left
frontal large, likely arachnoid cyst. No previous imaging studies are available at this institution for comparison. According to the , left frontal cyst was diagnosed in 2005, and he has previous imaging studies which she brought in from
home to compare. Indeed, this arachnoid cyst is stable and comparable in size to MRI of the brain performed on 08/26/2005. 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 Continue to treat
metabolic derangements. Call with questions
Today's Communication
-
Discussed with patient, patient's
--- NOTE | 2023-09-04 17:57 | VATNOTE ---
Called to evaluate IV in pt's L hand by PCN for suspected infiltrate. IV in L forearm assessed, redressed, and in good working order. IV fluids changed to forearm site and hand IV discontinued. Pt with tray set up for dinner and is left handed.
Informed pt that once she is finished eating we will need to apply heat to her hand to help reduce swelling. Pt verbalizes understanding. Communicated treatment plan to PCN who will apply heat to pt's hand after pt eats.
--- NOTE | 2023-09-04 18:30 | PTCARENOTE ---
Report called to J[facility]ie on 4th floor. Pt and family aware of pending transfer when bed clean
--- NOTE | 2023-09-04 18:37 | W.PN.UPDATE ---
Update Note
Progress Note Update
Pt seen & evaluated at bedside - sitting in chair next to bed. SPoke to pt alone initially then joined as she did not know her medication hx (says this is baseline for her). Pt difficult to interview as she remains quite confused, however is
able to discuss medication plans with help from (he is able to rephrase in a way that helps with her comprehension).
Has been on lithium for many yrs - it is unclear if lithium has ever helped significantly. According to pt and , the clearest improvement has been from Effexor (both anxiety & mood have improved and stabilized since, especially since most
recent increase.
Unclear whether pt truly has bipolar d/o vs anxiety/emotional dysregulation - 'episodes' are described as starting with stress that pt doesn't manage well, with increasing irritability and argumentativeness until there is a big argument and then
mood improves again. Possibly sleep disruption during these times, but not clear if due to mood disorder or anxiety/dysregulation.
Lamictal was started a few yrs after lithium was started - lamictal started for seizure management, however discussed that lamictal is also a mood stabilizer and can often help manage bipolar ii (if a mood disorder is present).
Pt & expressed worry that effexor dose being decreased pt will destabilize again - discussed why dose was decreased and that can be adjusted back up if kidney function improves or symptoms are observed to be returning.
2.5mg zyprexa bid prn in case mood instability/agitation occurs, however not unlikely that lamotrigine is adequate to manage mood symptoms if indeed a mood disorder is present.
no other changes
[2023-09-04 18:41] LABS: Lamotrigine (Lamictal) 16.6 ug/mL (3.0-15.0)
[2023-09-04] MEDS: STERILE WATER FOR INJECTION 10 ML IV (20:14)
[2023-09-04] MEDS: ROCEPHIN 1000 MG IV (20:14)
--- NOTE | 2023-09-04 21:13 | PTCARENOTE ---
Received pt. at 1900. Pt. OOB in chair. Alert and oriented. No complaints of pain or discomfort. Heart rhythm sinus. Currently on 2L nasal cannula. Lungs sound diminished, crackles at bases. Pt. on regular diet with 1500ml fluid restriction. Poor
appetite. Carrero catheter in place per order, draining without issue. Skin as documented. Report called to 4th floor. While getting patient ready for transfer, noticed IV site is leaky. IVT paged. IVT placed new infusor. Vital signs stable at this
time.
[2023-09-05] MEDS: NSS 1000 IV (00:32)
[2023-09-05] MEDS: TYLENOL 650 MG PO (03:09)
[2023-09-05 03:15] VITALS: BP 142/83
[2023-09-05] MEDS: FLAGYL 500 MG 100 IV ×3 (04:29→23:30)
[2023-09-05] MEDS: NSS IV (06:48)
[2023-09-05 07:26] VITALS: BP 143/84
[2023-09-05 07:49] LABS: Hematocrit 30.2 % (37.0-47.0); Mean Corp Hgb Conc. 32.8 g/dL (33.0-37.0); Mean Corpuscular Hgb 29.9 pg (27.0-31.0); Mean Corpuscular Volume 91.2 fL (81.0-99.0); Mean Platelet Volume 9.6 fL (7.4-10.4); Platelet Count 272 10^3/uL (130-400); Red Blood Cell Count 3.31 10^6/uL (4.20-5.40); Red Cell Dist. Width 14.6 % (11.5-14.5); White Blood Cell Count 15.6 10^3/uL (4.8-10.8)
[2023-09-05 08:20] LABS: Hemoglobin 9.9 g/dL (12.0-16.0)
[2023-09-05 08:49] LABS: Blood Urea Nitrogen 41 mg/dl (7-17); Calcium 10.7 mg/dl (8.4-10.2); Carbon Dioxide 16 mmol/L (22-30); Chloride 120 mmol/L (98-107); Estimated Creatinine Clearance 22 ml/min; Glucose 100 mg/dl (70-99); Lithium 1.1 mmol/L (0.6-1.2); Potassium 3.7 mmol/L (3.5-5.1); Sodium 142 mmol/L (135-145); eGFR 15.41
[2023-09-05] MEDS: LAMICTAL 200 MG PO ×2 (08:53→20:13)
[2023-09-05] MEDS: HEPARIN 5000 UNITS SC ×2 (08:53→20:13)
[2023-09-05] MEDS: EFFEXOR XR 75 MG PO (08:53)
--- NOTE | 2023-09-05 09:54 | W.PN.HOSP.TC ---
Today's Communication/Plan
-
see note
Assessment / Plan
Assessment / Plan
Impression:
Altered mental status-toxic metabolic encephalopathy
Seizures
[place] toxicity, lithium 1.9 in the setting of acute kidney injury
Large left frontal arachnoid cyst
Acute kidney injury, creatinine 4 (unknown baseline)
Hyponatremia, sodium 129 latest
Hyperglycemia
Aspiration pneumonia/urinary tract infection
Positive blood cultures, gram-negative
Elevated alkaline phosphatase
Conditions prior to presentation:
Cerebral palsy
Seizures
Probably CKD
Bipolar disorder
PLAN:
Continue Lamictal, current home doses
Continue seizure precautions
Appreciated nephrology consult and follow-up--> nephrology started on normal saline at 100 cc/h and discontinue 3% saline. Discussions about hemodialysis if and when needed will defer to nephrology.
Good urine output in last 24hr, creatinine continues to trend down 3.6 today
[place] level trending down > 1.5 > 1.1 today - continue holding, psych following
Urine sodium 10, urine osmolarity 138, serum osmolarity 273, TSH 1.8, cortisol 32
Continue IV Rocephin and Flagyl.
Repeat CXR on 09/03 showing Right basillar infiltrate
Follow-up cultures final identification and repeat blood cultures today
Reviewed renal ultrasound results
Appreciate neurosurgery input--> neurosurgery will check prior images and if stable no further intervention required.
Appreciate psychiatry input-->Decrease venlafaxine to 112.5 mg daily
Continue cardiac monitoring
Complaining bilateral visual blurriness, no new neurological deficit
unlikely central cause with bilateral changes and no associated neuro complains . monitor.
Heparin SQ for DVT prophylaxis
CODE STATUS full code
Anticipated Discharge: > 48 hours
Subjective/Interval History
-
Date of Service: September 05, 2023
Sitting comfortably in chair
Having some difficulty grasping glass - missing target
Objective Data
-
Labs:
Laboratory Results
09/05/23
06:55
WBC 15.6 H
Hgb 9.9 L D
Hct 30.2 L
Plt Count 272
Sodium 142
Potassium 3.7
Chloride 120 H
Carbon Dioxide 16 L
BUN 41 H
Creatinine 3.6 H
Glucose 100 H
Calcium 10.7 H
Vital Signs:
Vital Signs
Temp Pulse Resp BP Pulse Ox
98.5 F 87 28 143/84 94
09/05/23 07:26 09/05/23 07:26 09/05/23 07:26 09/05/23 07:26 09/05/23 09:07
I&O
09/04/23 09/05/23 09/06/23
06:59 06:59 06:59
Intake Total 4440 / 4590 3050 / 3050
Output Total 1695 / 1695 3225 / 3225
Balance 2745 / 2895 -175 / -175
Review of Systems
-
Respiratory: Reports No Symptoms
Cardiac: Reports No Symptoms
Abdomen/GI: Reports No Symptoms
Physical Exam
-
General: Appears Chronically Ill; Negative Appears in Distress
HEENT: Oxygen
Respiratory: Clear to Auscultation
Cardiac: Regular Rhythm and S1/S2; Negative Murmur
GI: Soft, Nontender and Nondistended
Musculoskeletal: No Edema
Neuro: Awake, Alert and Oriented
Psych: Calm
[2023-09-05 11:04] VITALS: BP 153/87
--- NOTE | 2023-09-05 13:26 | W.PN.NEPH.PH ---
Addendum entered and electronically signed by Joselito Ramírez DO 09/05/23 13:36:
change IVFs to 1/2ns
Original Note:
Today's Communication / Plan
-
maintain NSS
add sodium bicaronate tablets
d/c fluid restriction
Assessment/Plan
-
IMP:
AMS/confusion
Hyponatremia
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
MARIS-cr was 1 in 09/2022
Mild hypercalcemia
[place] toxicity
Elevated ALP
leucocytosis
Giant arachnoid cyst of brain
SZDO
Bipolar
Cerebral palsy
GN bacteremia
Left renal mass 2.8cm
Plan:
MARIS with some noted improvement with creatinine 3.6
Grossly nonoliguric with urine output of around 2300 cc
[place] level down to 1.1
obtained serologies given active urine sediment: 3.3grams
Renal ultrasound notes no hydronephrosis but mild medical renal disease, possible 2.8 cm interpolar left renal mass noted: Discussed with patient and and she will require MRI
Metabolic acidosis persist, will add sodium bicarbonate
Hyponatremia improved to 142, will d/c fluid restriction
check Uosmo ~135 U na- low osm
will maintain NSS at 100c/hr to help with clearance of lithium
maintain johnson
MARIS-last cr 1 , one yr ago.
Urinalysis notes blood and urine protein to creatinine ratio 3.3 g not consistent with [place] tubular interstitial disease
she may have underlying CKD with chr lithium use but I am concerned for alternative process given active urine sediment
Li levels down 1.8, hold Li, need psych input to find alternative
if no improvement seen likely she needs HD-reviewed with pt and
Hypercalcemia-likely from Li related, checked PTH and vit D, now at 10.7
Antibiotics renally dosed: Flagyl ceftriaxone
-
-
Date of Service: September 05, 2023
CC / HPI / ROS
-
Chief Complaint:
MARIS
Hyponatremia
[place] toxicity
History of Present Illness:
lithium slowly drifting down to 1.1
hemodynamically more stable
creatinine improved and grossly nonoliguric
now with GN bacteremia on Ceftriaxone
calcium rising to 10.7
Review of Systems:
non oliguric via johnson
febrile
no chest pain or sob
neurologically intact
Labs
-
Labs:
WBC 15.6 10^3/uL (4.8-10.8) H 09/05/23 06:55
RBC 3.31 10^6/uL (4.20-5.40) L 09/05/23 06:55
Hgb 9.9 g/dL (12.0-16.0) L D 09/05/23 06:55
Hct 30.2 % (37.0-47.0) L 09/05/23 06:55
Plt Count 272 10^3/uL (130-400) 09/05/23 06:55
Sodium 142 mmol/L (135-145) 09/05/23 06:55
Potassium 3.7 mmol/L (3.5-5.1) 09/05/23 06:55
Chloride 120 mmol/L (98-107) H 09/05/23 06:55
Carbon Dioxide 16 mmol/L (22-30) L 09/05/23 06:55
BUN 41 mg/dl (7-17) H 09/05/23 06:55
Creatinine 3.6 mg/dL (0.6-1.0) H 09/05/23 06:55
eGFR 15.41 09/05/23 06:55
Glucose 100 mg/dl (70-99) H 09/05/23 06:55
Calcium 10.7 mg/dl (8.4-10.2) H 09/05/23 06:55
Phosphorus 2.5 mg/dl (2.5-4.5) 09/02/23 16:54
Albumin 3.2 g/dl (3.5-5.0) L 09/04/23 03:35
Physical Exam
-
Vital Signs:
Vital Signs
Temp Pulse Resp BP Pulse Ox
98.8 F 92 28 153/87 96
09/05/23 11:04 09/05/23 11:04 09/05/23 11:04 09/05/23 11:04 09/05/23 11:04
Cardiovascular:: Regular rate and rhythm
Respiratory:: Bilateral: Coarse
Lung Excursion:: Normal
Abdomen:: Nontender and Soft
Bowel Sounds:: Normal
Extremity Edema:: +1: Bilateral:
[place] Catheter: Yes
--- NOTE | 2023-09-05 14:22 | CM ---
Patient ands spouse seen bedside.
Spouse interested in acute rehab.
Spouse aware if not accepted for acute we could look at skilled rehabs in the area.
Plan: acute vs skilled rehab[
[2023-09-05] MEDS: 0.45%NACL 1000 IV (14:42)
--- NOTE | 2023-09-05 15:02 | VATNOTE ---
Patient with reported infiltrate to left hand. Left hand noted to be swollen; patient reports swelling and pain are improved, but notes tender to palpation. No drainage noted. Reinforced with patient to keep hand elevated.
[2023-09-05 15:58] VITALS: BP 168/93
[2023-09-05] MEDS: SODIUM BICARBONATE 325 MG PO ×2 (16:01→21:56)
--- NOTE | 2023-09-05 19:26 | W.PN.UPDATE ---
Update Note
Progress Note Update
Pt resting today - will continue to monitor for signs of mood instability, can use prn zyprexa 2.5mg for acute management if mood destabilizes but as noted in prior note, not unlikely that she can remain stable on current regimen as is (perhaps with
effexor increasing again at some point).
[2023-09-05] MEDS: STERILE WATER FOR INJECTION IV ×2 (20:12→23:50)
[2023-09-05] MEDS: ROCEPHIN IV ×2 (20:12→23:20)
[2023-09-05 20:19] VITALS: BP 184/103
[2023-09-05 23:11] VITALS: BP 179/91
[2023-09-05] MEDS: FLAGYL 500 MG IV (23:19)
[2023-09-05] MEDS: STERILE WATER FOR INJECTION 10 ML IV ×2 (23:21→23:50)
[2023-09-05] MEDS: ROCEPHIN 1000 MG IV (23:50)
[2023-09-06] VITALS (7 sets, daily range): BP systolic 131–176; BP diastolic 73–104; PULSE 96
--- NOTE | 2023-09-06 00:39 | PTCARENOTE ---
pt's iv was infiltrated at the start of the shift. evening IV nurse attempted to place new one without success. Nightshift OXYGEN SYSTEM TESTER was able to place new access. Pharmacy was called to have Flagyl and Rocephin rescheduled as the doses were missed
earlier in the shift due to no access. pt updated on al changes.
[2023-09-06 01:36] LABS: Complement C3 160 mg/dl (88-165)
[2023-09-06] MEDS: 0.45%NACL 1000 IV (06:08)
[2023-09-06] MEDS: LAMICTAL 200 MG PO ×2 (07:46→20:08)
[2023-09-06] MEDS: EFFEXOR XR 75 MG PO (07:46)
[2023-09-06] MEDS: SODIUM BICARBONATE 325 MG PO (07:47)
[2023-09-06] MEDS: HEPARIN 5000 UNITS SC ×2 (07:48→20:08)
[2023-09-06] MEDS: FLAGYL 500 MG 100 IV (07:50)
--- NOTE | 2023-09-06 07:59 | W.PN.HOSP.TC ---
Today's Communication/Plan
-
IV antibiotics. Monitor renal function
Assessment / Plan
Assessment / Plan
Physical exam:
General: Acutely ill
HEENT: Normocephalic, Atraumatic and Moist Mucous Membranes
Respiratory: Some rhonchi in the right base; Negative Wheezes or Rales
Cardiac: Regular Rhythm and S1/S2
GI: Soft, Nontender and Nondistended
Musculoskeletal: Contractures in both right upper and lower extremities.� No Clubbing, No Cyanosis and No Edema
Neuro: Awake, Alert and Oriented, cognitively intact.� Right side spastic and paretic.� Nystagmus present.
Psych: Calm
A/P:
Impression:
Altered mental status-toxic metabolic encephalopathy
Seizures
[place] toxicity
Large left frontal arachnoid cyst
Acute kidney injury
Hyponatremia
Hypernatremia
Metabolic acidosis
Hyperglycemia
Aspiration pneumonia/urinary tract infection
E. coli bacteremia
Elevated alkaline phosphatase
Conditions prior to presentation:
Cerebral palsy
Seizures
Probably CKD
Bipolar disorder
PLAN:
Continue Lamictal, current home doses
Continue seizure precautions
Appreciated nephrology consult and follow-up--> nephrology started on normal saline at 100 cc/h and discontinue 3% saline. Discussions about hemodialysis if and when needed will defer to nephrology.
Started on sodium bicarbonate and monitor acid-base balance
Good urine output in last 24hr, creatinine continues to trend down 2.9 today
[place] level trending down > 1.5 > 1.1 today - continue holding, psych following
Urine sodium 10, urine osmolarity 138, serum osmolarity 273, TSH 1.8, cortisol 32
Continue IV Rocephin and Flagyl. Will have ID to eval given persistent leukocytosis although clinically stable.
Repeat CXR on 09/03 showing Right basillar infiltrate
Initial blood cultures E. coli, repeated cultures no growth
Reviewed renal ultrasound results
Appreciate neurosurgery input--> neurosurgery already checked prior images and no change from before.
Appreciate psychiatry input-->Decrease venlafaxine to 112.5 mg daily
PT recommends acute rehab versus SNF
Will have acute rehab consult
Will add Pepcid for GERD symptoms
Discussed with significant other over the phone today
Continue cardiac monitoring
Heparin SQ for DVT prophylaxis
CODE STATUS full code
Anticipated Discharge: > 48 hours
Subjective/Interval History
-
Date of Service: September 06, 2023
Patient denies any new complaints today. Afebrile.
Objective Data
-
Labs:
Laboratory Results
09/06/23
06:00
WBC Pending
Hgb Pending
Hct Pending
Plt Count Pending
Sodium Pending
Potassium Pending
Chloride Pending
Carbon Dioxide Pending
BUN Pending
Creatinine Pending
Glucose Pending
Calcium Pending
Vital Signs:
Vital Signs
Temp Pulse Resp BP Pulse Ox
98.4 F 92 20 143/90 95
09/06/23 03:10 09/06/23 03:10 09/06/23 03:10 09/06/23 03:10 09/06/23 03:10
I&O
09/05/23 09/06/23 09/07/23
06:59 06:59 06:59
Intake Total 3050 / 3050 3550 / 3550
Output Total 3225 / 3225 4800 / 4800
Balance -175 / -175 -1250 / -1250
Review of Systems
-
All other systems: Reviewed and negative
[2023-09-06 09:03] LABS: Hematocrit 33.8 % (37.0-47.0); Hemoglobin 11.5 g/dL (12.0-16.0); Mean Corpuscular Hgb 30.3 pg (27.0-31.0); Mean Corpuscular Volume 89.2 fL (81.0-99.0); Red Blood Cell Count 3.79 10^6/uL (4.20-5.40); White Blood Cell Count 20.1 10^3/uL (4.8-10.8)
[2023-09-06 11:45] LABS: Blood Urea Nitrogen 41 mg/dl (7-17); Calcium 10.8 mg/dl (8.4-10.2); Carbon Dioxide 14 mmol/L (22-30); Chloride 123 mmol/L (98-107); Estimated Creatinine Clearance 28 ml/min; Glucose 131 mg/dl (70-99); Lithium 0.8 mmol/L (0.6-1.2); Potassium 4.3 mmol/L (3.5-5.1); Sodium 146 mmol/L (135-145); eGFR 19.98
--- NOTE | 2023-09-06 12:06 | W.PN.NEPH.PH ---
Today's Communication / Plan
-
IVF
Assessment/Plan
-
IMP:
AMS/confusion
Hyponatremia
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
MARIS-cr was 1 in 09/2022
Mild hypercalcemia
[place] toxicity
Elevated ALP
leucocytosis
Giant arachnoid cyst of brain
SZ D/O
Bipolar
Cerebral palsy
GN bacteremia
Left renal mass 2.8cm
Plan:
-follow BMP
-increase bicarb
-repeat urine studies
-change to D5W IVF
-
-
Date of Service: September 06, 2023
CC / HPI / ROS
-
Chief Complaint:
MARIS
Hyponatremia
[place] toxicity
History of Present Illness:
lithium slowly drifting down to 0.8
hemodynamically stable
creatinine down to 2.9
acidosis with bicarb 14
now with GN bacteremia on Ceftriaxone
calcium rising to 10.8
Na up to 146
Review of Systems:
non oliguric via johnson
no chest pain or sob
neurologically intact
Labs
-
Labs:
WBC 20.1 10^3/uL (4.8-10.8) H 09/06/23 08:05
RBC 3.79 10^6/uL (4.20-5.40) L 09/06/23 08:05
Hgb 11.5 g/dL (12.0-16.0) L 09/06/23 08:05
Hct 33.8 % (37.0-47.0) L 09/06/23 08:05
Plt Count 10^3/uL (130-400) 09/06/23 08:05
Sodium 146 mmol/L (135-145) H 09/06/23 10:19
Potassium 4.3 mmol/L (3.5-5.1) 09/06/23 10:19
Chloride 123 mmol/L (98-107) H 09/06/23 10:19
Carbon Dioxide 14 mmol/L (22-30) L* 09/06/23 10:19
BUN 41 mg/dl (7-17) H 09/06/23 10:19
Creatinine 2.9 mg/dL (0.6-1.0) H 09/06/23 10:19
eGFR 19.98 09/06/23 10:19
Glucose 131 mg/dl (70-99) H 09/06/23 10:19
Calcium 10.8 mg/dl (8.4-10.2) H 09/06/23 10:19
Phosphorus 2.5 mg/dl (2.5-4.5) 09/02/23 16:54
Albumin 3.2 g/dl (3.5-5.0) L 09/04/23 03:35
Physical Exam
-
Vital Signs:
Vital Signs
Temp Pulse Resp BP Pulse Ox
98.5 F 88 19 139/89 97
09/06/23 11:15 09/06/23 11:15 09/06/23 11:15 09/06/23 11:15 09/06/23 11:15
Cardiovascular:: Regular rate and rhythm
Respiratory:: Bilateral: Coarse
Lung Excursion:: Normal
Abdomen:: Nontender
Bowel Sounds:: Normal
Extremity Edema:: +1: Bilateral:
[2023-09-06] MEDS: 0.45%NACL IV (13:25)
[2023-09-06] MEDS: D5W 1000 IV (13:47)
--- NOTE | 2023-09-06 14:16 | W.PN.UPDATE ---
Update Note
Progress Note Update
Pt seen, record reviewed. Pt initially sound asleep, was able to wake and give limited information. Pt goes by 'Jamal'. Pt states she was seen at [facility] in the past, but the medication mgt system there did not work for her. Pt has been
managed by PCP, maintained on [place], Lamictal and Effexor XR. Pt states she may have to find a psychiatrist to manage medications, states her will help her with follow-up. [place] level 0.8 today, was 1.8 on admission. Elevated
Creatinine is improving. Pt calm and cooperative with treatment; no signs of mood disturbance on interview.
Imp: hx of Bipolar d/o, appears stable on Lamictal; [place] stopped due to toxicity
Rec: continue on Lamictal and reduced Effexor XR
Outpatient medication mgt when medically cleared
will follow
--- NOTE | 2023-09-06 14:53 | CON.ID ---
Consultation
-
Date/Time Consultation Requested: 09/06/2023 1338
Date/Time Consultation Performed: 09/06/2023 1432
Requesting Provider: Dr. Merritt
Performing Provider: Dr. Browning
Reason for Consultation: Urinary tract infection; leukocytosis
Chief Complaint / Past History
History of Present Illness
Vicenta Queen is a 43-year-old female with a significant past medical history of seizure disorder and bipolar disease being evaluated at the request of Dr. Merritt in regards to leukocytosis. History is obtained from chart review, along with
patient interview, along with history obtained from the patient's who was at the bedside.
The patient initially presented to the emergency room on 09/04 secondary to change in mental status over the prior 3 to 4 days. At that point in time she was complaining of headache along with word finding inability. She additionally was having
ongoing confusion and tremors. Workup revealed an elevated lithium level. Additionally, patient was found to have a urinary tract infection, with significant pyuria. Urine cultures ultimately grew out E. coli, and the patient also was found to be
bacteremic. She is currently on day #5 of antibiotic therapy. White count is trending up, and Infectious Diseases is asked to comment on this development.
At this time she reports feeling overall improved from admission. She denies any fevers or chills. She denies any pain. She has a Carrero catheter in place which was placed upon admission. She denies any abdominal pain. She denies any diarrhea.
Past History
Additional Past Medical History:
Arachnoid cyst
Seizure disorder
Bipolar disease
Cerebral palsy with right arm weakness
Past Surgical History: None
Allergy History:
No Known Allergies Allergy (Unverified 09/02/23 15:13)
Medications Reviewed: Yes
Current Antibiotics:
Ceftriaxone
Metronidazole
Social History
Tobacco: Non-Smoker
Alcohol: None
Drug: None
Personal:
Living: With Family
Family History
Family History: Not Pertinent
Review of Systems
Vital Signs
Temp Pulse Resp BP Pulse Ox
97.7 F 87 18 162/89 98
09/06/23 14:30 09/06/23 14:30 09/06/23 14:30 09/06/23 14:30 09/06/23 14:30
Physical Exam
Physical Exam
Constitutional: No Acute Distress, Comfortable, Chronically Ill and Non-toxic
Eyes: Pupils Equal, Pupils Round, No Conjunctival Hemorrhage and Sclera Anicteric
Oral: No Thrush; Negative No Ulcers
Cardiovascular: S1/S2; Negative S3/S4 or Murmur
Pulmonary: Non Labored; Negative Wheezes, Rales or Rhonchi
Gastrointestinal: Soft, Non Tender and Non Distended
Genito-Urinary: Carrero and Clear Urine; Negative Suprapubic Tenderness, CVA Tenderness, Turbid Urine or Hematuria
Extremities: Negative Edema, Cyanosis or Erythema
Neurological: Awake and Alert
Psychological: Calm
Lab / Diagnostic Study Results
09/06/23 08:05
09/06/23 10:19
Abs Immat Gran (auto) 0.1 10^3/uL (0-0.05) H 09/04/23 03:35
Absolute Neuts (auto) 11.7 10^3/uL (1.4-6.5) H 09/04/23 03:35
Absolute Lymphs (auto) 0.6 10^3/uL (1.2-3.4) L 09/04/23 03:35
Absolute Monos (auto) 0.7 10^3/uL (0.1-0.6) H 09/04/23 03:35
Absolute Basos (auto) 0.1 10^3/uL (0-0.2) 09/04/23 03:35
Immature Gran % 0.4 % (0-0.5) 09/04/23 03:35
Neutrophils % 87.6 % (42.2-75.2) H 09/04/23 03:35
Lymphocytes % 4.5 % (20.5-51.1) L 09/04/23 03:35
Monocytes % 5.5 % (1.7-9.3) 09/04/23 03:35
Eosinophils % 1.6 % (0-6) 09/04/23 03:35
Basophils % 0.4 % (0-2) 09/04/23 03:35
PT 15.6 Sec (11.4-14.6) H 09/02/23 15:23
INR 1.23 09/02/23 15:23
Lactic Acid Cancelled 09/04/23 06:00
Ur Squamous Epith Cells 3-5 /LPF (Few) 09/02/23 18:32
Microbiology Results
Micro:
09/03/23 15:40 Blood Culture - Preliminary
Blood/Venous No Growth in 48 hours- Final report to follow
09/02/23 18:20 Blood Culture - Final
Blood/Venous Escherichia coli
Gram Stain - Final
09/02/23 18:19 Blood Culture - Final
Blood/Venous Escherichia coli
Gram Stain - Final
09/02/23 18:32 Urine Culture - Final
Urine Escherichia coli
09/03/2023 Renal ultrasound: No hydronephrosis noted. Kidneys of normal size and with mild medical renal disease. A 2.8 cm focus of rounded increased echogenicity is concerning for a possible mass. Contrast-enhanced MRI or CT is recommended.
Please see full dictation for additional detail.
Assessment / Plan
Complicated urinary tract infection
E. coli bacteremia
Leukocytosis
Hyponatremia
MARIS
Arachnoid cyst
Seizure disorder
Bipolar disease
Cerebral palsy with right arm weakness
Recommendations:
Continue with antibiotics in the treatment of E. coli UTI/bacteremia. Can transition to oral cephalexin, to complete a 10-day course.
Monitor creatinine clearance and adjust antibiotics as appropriate.
Rising leukocytosis noted. Review of old records note that leukocytosis has been longstanding. Suspect may be secondary to lithium.
Monitor temperature curve.
[2023-09-06] MEDS: SODIUM BICARBONATE 650 MG PO ×2 (15:25→22:44)
[2023-09-06] MEDS: PEPCID 20 MG PO (15:25)
[2023-09-06 16:10] LABS: Urine Albumin Trace (Neg - Trace); Urine Bilirubin Negative (Negative); Urine Character Clear (Clear); Urine Color Straw; Urine Glucose Negative (Negative); Urine Ketone Negative (Negative); Urine Leukocyte 1+ (Negative); Urine Nitrite Negative (Negative); Urine Occult Blood 2+ (Negative); Urine Specific Gravity 1.005 (<1.030); Urine Urobilinogen Negative (Neg - 1+)
[2023-09-06 16:20] LABS: Urine Squamous Cell 0-2 /LPF (Few)
[2023-09-06 16:37] LABS: Protein/creatinine Ratio 2.3; Urine Protein 35 mg/dl
[2023-09-06 18:57] LABS: Myeloperoxidase Antibody 110 AU/mL (0-19); Serine Protease-3, IgG 1 AU/mL (0-19)
[2023-09-06] MEDS: KEFLEX 500 MG PO (20:08)
[2023-09-07] VITALS (8 sets, daily range): BP systolic 149–173; BP diastolic 92–110; BMI 36.3
[2023-09-07] MEDS: D5W 1000 IV ×2 (03:49→13:38)
[2023-09-07] MEDS: EFFEXOR XR 75 MG PO (07:34)
[2023-09-07] MEDS: SODIUM BICARBONATE 650 MG PO ×3 (07:35→21:22)
[2023-09-07] MEDS: LAMICTAL 200 MG PO ×2 (07:35→20:02)
[2023-09-07] MEDS: KEFLEX 500 MG PO ×2 (07:35→20:02)
[2023-09-07] MEDS: HEPARIN 5000 UNITS SC ×2 (07:36→20:02)
[2023-09-07 09:00] LABS: Hematocrit 33.9 % (37.0-47.0); Hemoglobin 11.1 g/dL (12.0-16.0); Mean Corp Hgb Conc. 32.7 g/dL (33.0-37.0); Mean Corpuscular Hgb 29.4 pg (27.0-31.0); Mean Corpuscular Volume 89.9 fL (81.0-99.0); Mean Platelet Volume 9.4 fL (7.4-10.4); Platelet Count 384 10^3/uL (130-400); Red Blood Cell Count 3.77 10^6/uL (4.20-5.40); Red Cell Dist. Width 15.4 % (11.5-14.5); White Blood Cell Count 22.6 10^3/uL (4.8-10.8)
[2023-09-07 09:15] LABS: Blood Urea Nitrogen 36 mg/dl (7-17); Calcium 10.3 mg/dl (8.4-10.2); Carbon Dioxide 18 mmol/L (22-30); Chloride 115 mmol/L (98-107); Estimated Creatinine Clearance 34 ml/min; Glucose 97 mg/dl (70-99); Potassium 4.1 mmol/L (3.5-5.1); Sodium 143 mmol/L (135-145); eGFR 23.87
--- NOTE | 2023-09-07 09:16 | W.PN.HOSP.TC ---
Today's Communication/Plan
-
Continue current management. Discharge planning in progress as soon as cleared by nephrology and rehab or SNF available.
Assessment / Plan
Assessment / Plan
Physical exam:
General: Acutely ill
HEENT: Normocephalic, Atraumatic and Moist Mucous Membranes
Respiratory: Some rhonchi in the right base; Negative Wheezes or Rales
Cardiac: Regular Rhythm and S1/S2
GI: Soft, Nontender and Nondistended
Musculoskeletal: Contractures in both right upper and lower extremities.� No Clubbing, No Cyanosis and No Edema
Neuro: Awake, Alert and Oriented, cognitively intact.� Right side spastic and paretic.� Nystagmus present.
Psych: Calm
A/P:
Impression:
Altered mental status-toxic metabolic encephalopathy
Seizures
[place] toxicity
Large left frontal arachnoid cyst
Acute kidney injury
Hyponatremia
Hypernatremia
Metabolic acidosis
Hyperglycemia
Aspiration pneumonia/urinary tract infection
E. coli bacteremia
Elevated alkaline phosphatase
Conditions prior to presentation:
Cerebral palsy
Seizures
Probably CKD
Bipolar disorder
PLAN:
Continue Lamictal, current home doses
Continue seizure precautions
Creatinine 2.5 today
WBC 22.6
[place] 0.8 today
HC03 improved today
Appreciated nephrology consult and follow-up--> nephrology started on normal saline at 100 cc/h and discontinue 3% saline. Discussions about hemodialysis if and when needed will defer to nephrology.
Started on sodium bicarbonate and monitor acid-base balance
Good urine output in last 24hr, creatinine continues to trend down 2.5 today
[place] level trending down > 1.5 > 0.8 today - continue holding, psych following
Urine sodium 10, urine osmolarity 138, serum osmolarity 273, TSH 1.8, cortisol 32
Continue IV Rocephin and Flagyl. Will have ID to eval given persistent leukocytosis although clinically stable. ID input appreciated and they feel leukocytosis rather related to lithium and antibiotics changed to oral Keflex.
Repeat CXR on 09/03 showing Right basillar infiltrate
Initial blood cultures E. coli, repeated cultures no growth
Reviewed renal ultrasound results
Appreciate neurosurgery input--> neurosurgery already checked prior images and no change from before.
Appreciate psychiatry input-->Decrease venlafaxine to 112.5 mg daily
PT recommends acute rehab versus SNF
Rehab consulted on 09/05
Will add Pepcid for GERD symptoms
Discussed with significant other at bedside today
Continue cardiac monitoring
Discharge planning in progress as soon as cleared by nephrology and rehab or SNF available
Heparin SQ for DVT prophylaxis
CODE STATUS full code
Anticipated Discharge: 24 - 48 hours
Subjective/Interval History
-
Date of Service: September 07, 2023
Patient seen and examined. No new complaints. Afebrile
Objective Data
-
Labs:
Laboratory Results
09/07/23
08:07
WBC 22.6 H
Hgb 11.1 L
Hct 33.9 L
Plt Count 384 D
Sodium 143
Potassium 4.1
Chloride 115 H
Carbon Dioxide 18 L
BUN 36 H
Creatinine 2.5 H
Glucose 97
Calcium 10.3 H
Vital Signs:
Vital Signs
Temp Pulse Resp BP Pulse Ox
98.3 F 89 28 149/99 95
09/07/23 07:26 09/07/23 07:26 09/07/23 07:26 09/07/23 07:26 09/07/23 07:26
I&O
09/06/23 09/07/23 09/08/23
06:59 06:59 06:59
Intake Total 3550 / 3550 2760 / 2760
Output Total 4800 / 4800 4200 / 4200
Balance -1250 / -1250 -1440 / -1440
--- NOTE | 2023-09-07 10:57 | CM ---
Patient seen bedside with spouse, discussed referral to [facility], PM&R consult ordered. CM will continue to follow for discharge planning needs.
Plan; Acute rehab, awaiting PM&R consult.
--- NOTE | 2023-09-07 13:02 | W.PN.NEPH.PH ---
Today's Communication / Plan
-
Bx
Assessment/Plan
-
IMP:
AMS/confusion
Hyponatremia
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
MARIS-cr was 1 in 09/2022
Mild hypercalcemia
[place] toxicity
Elevated ALP
leucocytosis
Giant arachnoid cyst of brain
SZ D/O
Bipolar
Cerebral palsy
GN bacteremia
Left renal mass 2.8cm
+MPO
Plan:
-follow BMP
-continue bicarb
-continue IVF
-long d/w pt and regarding MPO 110. This may explain the MARIS as well. discussed biopsy, and they are agreeable. will ask IR for bx.
-this is different than for her left renal mass, which will need MRI eventually and urology consultation with possible biopsy option in the future.
-
-
Date of Service: September 07, 2023
CC / HPI / ROS
-
Chief Complaint:
MARIS
Hyponatremia
[place] toxicity
History of Present Illness:
hemodynamically stable
creatinine down to 2.5
acidosis with bicarb 18 with bicarb
now with GN bacteremia on Ceftriaxone
calcium stable 10.3
Na down to 143 with hypotonic IVF
Review of Systems:
non oliguric via johnson
no chest pain or sob
neurologically intact
Labs
-
Labs:
WBC 22.6 10^3/uL (4.8-10.8) H 09/07/23 08:07
RBC 3.77 10^6/uL (4.20-5.40) L 09/07/23 08:07
Hgb 11.1 g/dL (12.0-16.0) L 09/07/23 08:07
Hct 33.9 % (37.0-47.0) L 09/07/23 08:07
Plt Count 384 10^3/uL (130-400) D 09/07/23 08:07
Sodium 143 mmol/L (135-145) 09/07/23 08:07
Potassium 4.1 mmol/L (3.5-5.1) 09/07/23 08:07
Chloride 115 mmol/L (98-107) H 09/07/23 08:07
Carbon Dioxide 18 mmol/L (22-30) L 09/07/23 08:07
BUN 36 mg/dl (7-17) H 09/07/23 08:07
Creatinine 2.5 mg/dL (0.6-1.0) H 09/07/23 08:07
eGFR 23.87 09/07/23 08:07
Glucose 97 mg/dl (70-99) 09/07/23 08:07
Calcium 10.3 mg/dl (8.4-10.2) H 09/07/23 08:07
Phosphorus 2.5 mg/dl (2.5-4.5) 09/02/23 16:54
Albumin 3.2 g/dl (3.5-5.0) L 09/04/23 03:35
Physical Exam
-
Vital Signs:
Vital Signs
Temp Pulse Resp BP Pulse Ox
98.7 F 93 24 155/103 97
09/07/23 11:22 09/07/23 11:22 09/07/23 11:22 09/07/23 11:22 09/07/23 11:22
Cardiovascular:: Regular rate and rhythm
Respiratory:: Bilateral: Coarse
Lung Excursion:: Normal
Abdomen:: Nontender and Soft
Bowel Sounds:: Normal
Extremity Edema:: +1: Bilateral:
--- NOTE | 2023-09-07 13:59 | W.PN.UPDATE ---
Update Note
Progress Note Update
Pt seen with present. states pt is doing very well in terms of mood/mental status, appears better than when she was taking [place]. Zyprexa 2.5 mg is ordered, but has not been given. Pt appears to be doing well on Lamictal and
Effexor XR at current doses. Pt sitting up in chair, reports feeling clearer each day. Lab values continue to improve, Creat improved to 2.5 today. Last lithium level yesterday was 0.8. reports pt used to have med mgt at [facility]; had
to change to PCP due to insurance coverage. states insurance has since changed, and they would consider [facility] again.
Imp: hx of Bipolar d/o, appears stable on Lamictal; [place] stopped due to toxicity
Rec:� continue on Lamictal and reduced Effexor XR
�� � Outpatient medication mgt when medically cleared
�� � will follow
--- NOTE | 2023-09-07 16:53 | W.PN.ID1 ---
Date of Service
Date of Service: September 07, 2023
Today's Communication
Continue abx.
Assessment / Plan
Complicated urinary tract infection
E. coli bacteremia
Leukocytosis
Hyponatremia
MARIS
Arachnoid cyst
Seizure disorder
Bipolar disease
Cerebral palsy with right arm weakness
Recommendations:
Continue with keflex in the treatment of E. coli UTI/bacteremia. Complete a 10-day course.
Monitor creatinine clearance and adjust antibiotics as appropriate.
Rising leukocytosis noted. Review of old records note that leukocytosis has been longstanding. Suspect may be secondary to lithium. No evidence of other occult infection at present. Will continue to monitor closely.
Monitor temperature curve.
Chief Complaint
-: Leukocytosis and UTI
Subjective / Review of Systems
Review of Systems: No Fever, No Chills, No Abdominal Pain, No Diarrhea and No Dysuria
Vital Signs / Physical Exam
Vital Signs
Vital Signs
Temp Pulse Resp BP Pulse Ox
97.7 F 85 28 155/92 99
09/07/23 15:15 09/07/23 15:15 09/07/23 15:15 09/07/23 15:15 09/07/23 15:15
Physical Exam
Constitutional: No Acute Distress, Comfortable and Non-toxic
Eyes: No Conjunctival Hemorrhage and Sclera Anicteric
Pulmonary: Non Labored
Gastrointestinal: Soft and Non Distended
Neurological: Awake and Alert
Psychological: Calm
Objective Data
Lab Data
Lab Results
09/07/23 08:07
09/07/23 08:07
PT 15.6 Sec (11.4-14.6) H 09/02/23 15:23
INR 1.23 09/02/23 15:23
APTT 40.2 Sec (23.4-35.0) H 09/02/23 15:23
Estimated Creat Clear 34 ml/min 09/07/23 08:07
Lactic Acid Cancelled 09/04/23 06:00
Total Bilirubin 0.5 mg/dl (0.2-1.3) 09/04/23 03:35
AST 21 U/L (14-36) 09/04/23 03:35
ALT 14 U/L (0-35) 09/04/23 03:35
Alkaline Phosphatase 177 U/L (38-126) H 09/04/23 03:35
Most recent labs reviewed.
Micro Results:
09/03/23 15:40 Blood Culture - Preliminary
Blood/Venous No Growth in 4 days- Final report to follow
09/02/23 18:20 Blood Culture - Final
Blood/Venous Escherichia coli
Gram Stain - Final
09/02/23 18:19 Blood Culture - Final
Blood/Venous Escherichia coli
Gram Stain - Final
09/02/23 18:32 Urine Culture - Final
Urine Escherichia coli
Imaging:
09/03/2023 Renal ultrasound: No hydronephrosis noted. Kidneys of normal size and with mild medical renal disease. A 2.8 cm focus of rounded increased echogenicity is concerning for a possible mass. Contrast-enhanced MRI or CT is recommended.
Please see full dictation for additional detail.
--- NOTE | 2023-09-07 17:00 | PTCARENOTE ---
09/06- Patient c/o dehydration. Spouse states, 'she needs to be on a fluid restriction because her sodium is 146, and that's too low. The problem is when she gets dehydrated, it throws off her lamotrigine which sends her into seizures. I've been
through this before.' Patient's face is flushed; she is agitated and breathing fast. HR=92; POX=94% on RA; UV=889/110 automatic on RUE; RR=18; T=98.2. Educated patient on normal Na+ ranges from 135-145. Advised her current Sodium level is
143 which is well within range, and she can have more water. Educated patient on slow deep breathing. She verbalized understanding. Got patient more water and noticed her face return to normal color; RR returned to 14; HR=86. Retook BP manually
which was still 171/105. Notified Physician of increased BP.
--- NOTE | 2023-09-07 18:23 | CON.MR ---
Consultation
Consultation Request
Date/Time Consultation Performed: 09/07/23, 1530
Performing Provider: Dr. Rodríguez
Reason for Consultation: Weakness
Medical History
-
Chief Complaint: weakness
History of Present Illness:
I had the opportunity to see Vicenta Queen in rehabilitation consultation. This is a 43 years old female with history of cerebral palsy, bipolar disorder, seizures, admitted to the hospital 09/01 with altered mental status.� Patient having
intermittent headaches and confusion on and off as well as increased tremors in her lower extremities over the last several days.� They felt she probably had seizures.� said that she had some headaches and some difficulty speaking but is not
clear that she had tonic-clonic activity.� She has decreased oral intake.� In the ED, WBC 27.4, sodium 124, creatinine 3.5, lithium 1.9.� CT scan of the head with large cystic structure in the left side of the brain consistent with a giant arachnoid
cyst.� Chest x-ray increased stranding of both lung bases.�
Hospital course noted with continued mental status changes felt due to toxic metabolic encephalopathy, MARIS, lithium toxicity, hyponatremia, metabolic acidosis, UTI. Also noted with large left frontal arachnoid cyst in brain, evaluated by
neurosurgery and apparently has been present in previous brain imaging and unchanged. Patient apparently planned for renal biopsy with renal mass also seen.
Patient seen at bedside this afternoon. Patient states feels pretty good today. Overall feeling better. Still fatigue. No pain currently, denies any headache or dizziness. No chest pain or SOB.
CP history but was ambulatory without any cane or assistive device prior to hospitalization. Lives with in 1 story home with 1 step to enter.,
Past Medical History
Cerebral palsy, seizure disorders, bipolar disorder, history of arachnoid cyst of the brain
Past Surgical History: Reports None
Social History
Tobacco: Non-smoker
Alcohol: None
Drug: None
Social History
Functional Level Premorbidity:
Independent for all activities. Previous no cane or assistive device
Current Funct Level: Ambulation, Transfer, UE/LE Dressing:
Mod A for transfers, Supervision bed mobility but post-lateral leaning to the right with seated positions and bed mobility
Living: With Spouse
Number of Floors: 1
# Steps to Enter: 1
Potential First Floor Set Up: Yes
Allergies / Home Medications
Allergy/AdvReac Type Severity Reaction Status Date / Time
No Known Allergies Allergy Unverified 09/02/23 15:13
Medication Instructions Recorded Confirmed Last Taken Type
lamotrigine 200 mg tablet 200 mg PO BID Seizures 09/02/23 09/02/23 Unknown History
lithium carbonate 300 mg tablet 300 mg PO BID@0800,1800 Bipolar 09/02/23 09/02/23 Unknown History
Disorder
lithium carbonate 300 mg tablet 600 mg PO HS Bipolar Disorder 09/02/23 09/02/23 Unknown History
venlafaxine 150 mg 150 mg PO DAILY Mental 09/02/23 09/02/23 Unknown History
capsule,extended release 24 hr Health/Anxiety
Review Of Systems
-
All other systems: Negative unless noted
Constitutional: Reports Fatigue
Eye: Reports No Symptoms
EENT: Reports No Symptoms
Respiratory: Reports No Symptoms
Cardiac: Reports No Symptoms
Abdomen/GI: Reports No Symptoms
: Reports No Symptoms
Musculoskeletal: Reports No Symptoms
Integumentary: Reports No Symptoms
Neurological: Reports No Symptoms
Psych: Reports No Symptoms
Endocrine: Reports No Symptoms
Hematologic/Lymphatic: Reports No Symptoms
Immunology: Reports No Symptoms
Physical Exam
Active Medications
Generic Name Dose Route Start Last Admin
Trade Name Freq PRN Reason Stop Dose Admin
Acetaminophen 650 mg 09/02/23 23:08 09/05/23 03:09
Acetaminophen 325 Mg Tablet PO 09/30/23 23:07 650 mg
Q4HPRN PRN Administration
temp>100.4
Albuterol/Ipratropium 3 ml 09/04/23 10:53
Ipratropium 0.5/Albuterol 3 Mg (3 Ml Ampul) INH
R Q4HPRN PRN
Wheeze
Protocol
Artificial Tears 1 drops 09/04/23 09:16 09/04/23 10:07
Artificial Tears Pf (Refresh) 10 Drop Droperette OPHTH 10/02/23 09:15 1 drops
QIDPRN PRN Administration
DRY EYE
Cephalexin HCl 500 mg 09/06/23 20:00 09/07/23 07:35
Cephalexin 500 Mg Capsule PO 500 mg
BID MICHELLE Administration
Famotidine 20 mg 09/06/23 14:00 09/06/23 15:25
Famotidine 20 Mg Tablet PO 10/04/23 13:59 20 mg
Q48H MICHELLE Administration
Heparin Sodium 5,000 units 09/02/23 20:00 09/07/23 07:36
Heparin 5,000 Units/Ml 1 Ml Vial SC 09/30/23 19:59 5,000 units
Q12 MICHELLE Administration
Dextrose 1,000 mls @ 80 mls/hr 09/06/23 13:00 09/07/23 13:38
D5w IV 1,000 mls
[id number] MICHELLE Administration
Lamotrigine 200 mg 09/03/23 09:00 09/07/23 07:35
Lamotrigine 100 Mg Tablet PO 10/01/23 08:59 200 mg
BID MICHELLE Administration
Olanzapine 2.5 mg 09/04/23 18:40
Olanzapine 2.5 Mg Tablet PO 10/02/23 18:39
BIDPRN PRN
agitation/mood instability
Ondansetron HCl 4 mg 09/02/23 21:08 09/02/23 21:18
Ondansetron 4 Mg/2 Ml Vial IV 09/30/23 21:07 4 mg
Q6HPRN PRN Administration
NAUSEA/VOMITING
Sodium Bicarbonate 650 mg 09/06/23 16:00 09/07/23 15:12
Sodium Bicarbonate 650 Mg Tablet PO 10/03/23 15:59 650 mg
TID MICHELLE Administration
Sodium Chloride 0 flush 09/02/23 20:00
Sodium Chloride 0.9% (Flush) Syringe IV 09/30/23 19:59
PER PROTOCOL MICHELLE
Venlafaxine HCl 75 mg 09/04/23 08:00 09/07/23 07:34
Venlafaxine 75 Mg Extended Release Capsule PO 10/02/23 07:59 75 mg
DAILY MICHELLE Administration
Vital Signs
Temp Pulse Resp BP Pulse Ox
97.7 F 85 28 155/92 99
09/07/23 15:15 09/07/23 15:15 09/07/23 15:15 09/07/23 15:15 09/07/23 15:15
Height 5 ft 5 in
Actual Weight 98.883 kg
Body Mass Index (BMI) 36.3
Physical Exam
Physical Exam:
General Appearance/Observation: Well-developed, well-nourished individual in no apparent distress. Lying comfortably in bed
Pain/Comfort Assessment: Denies
Mood/Affect: Appropriate
Eyes: Conjunctiva/Lids: normal Pupils: pupils equal round and reactive to light and Accommodation. left nystagmus
Ears/Nose/Throat: oral mucosa moist, throat clear. Lips/Teeth/Gums: normal
Cardiovascular: Heart: regular, no murmur
Pulses: dorsalis pedis 2+ bilaterally
Respiratory: Respiratory Effort/Chest Expansion: normal Auscultation: Clear to auscultation bilaterally
Gastrointestinal: abdomen not tender, no distension, normal abdominal bowel sounds
Genitourinary: No Carrero
Rectal Exam: Deferred
Extremities: Edema: None Cyanosis: None Trophic changes: None
Neurology Exam:
Orientation: Alert, Oriented to self, Time, Place
Memory: Intact immediately and at 3 minutes
Speech: Intact
Comprehension: Intact
Sensory:
Light touch: Intact in bilateral upper and lower extremities
Reflexes:
Biceps: Increased right
Achilles: Increased right
Babinski: Pos right
Clonus: None
Cerebellar: Dysmetria/Ataxia: positive right
Musculoskeletal:
Right upper limb smaller size compared to the left
Motor: (Manual muscle scale 0-5)
Muscle SA EF WE EE FF FA HF KE DF EHL PF
Right 4 4 3 4 3 3 4 5 5 5 5
Left 5 5 5 5 5 5 5 5 5 5 5
Tone: Increased mildly on the right - UE>LE
Range of Motion: Passively within normal limits in all extremities
Lab Results
09/07/23 08:07
09/07/23 08:07
WBC 22.6 10^3/uL (4.8-10.8) H 09/07/23 08:07
Hgb 11.1 g/dL (12.0-16.0) L 09/07/23 08:07
Hct 33.9 % (37.0-47.0) L 09/07/23 08:07
MCV 89.9 fL (81.0-99.0) 09/07/23 08:07
Plt Count 384 10^3/uL (130-400) D 09/07/23 08:07
PT 15.6 Sec (11.4-14.6) H 09/02/23 15:23
INR 1.23 09/02/23 15:23
Sodium 143 mmol/L (135-145) 09/07/23 08:07
Potassium 4.1 mmol/L (3.5-5.1) 09/07/23 08:07
Chloride 115 mmol/L (98-107) H 09/07/23 08:07
Carbon Dioxide 18 mmol/L (22-30) L 09/07/23 08:07
BUN 36 mg/dl (7-17) H 09/07/23 08:07
Creatinine 2.5 mg/dL (0.6-1.0) H 09/07/23 08:07
eGFR 23.87 09/07/23 08:07
Glucose 97 mg/dl (70-99) 09/07/23 08:07
Calcium 10.3 mg/dl (8.4-10.2) H 09/07/23 08:07
Phosphorus 2.5 mg/dl (2.5-4.5) 09/02/23 16:54
Magnesium Cancelled 09/02/23 18:51
Total Bilirubin 0.5 mg/dl (0.2-1.3) 09/04/23 03:35
AST 21 U/L (14-36) 09/04/23 03:35
ALT 14 U/L (0-35) 09/04/23 03:35
Alkaline Phosphatase 177 U/L (38-126) H 09/04/23 03:35
Total Protein 5.9 g/dl (6.3-8.2) L 09/04/23 03:35
Albumin 3.2 g/dl (3.5-5.0) L 09/04/23 03:35
Diagnostic Results
As per HPI.
Comorbidities / Impairment Group
Comorbidities:
Cerebral palsy, seizure disorder
Impairment Group:
Deconditioning/debility
Assessment / Plan
Plan
Assessment:
43 year old female with CP admitted with metabolic encephalopathy, MARIS, lithium toxicity UTI
PM&R PT/OT to increase independence with ADLs, improve balance, coordination, endurance, strength, mobility, community reintegration, decreased burden of care on others and family education. Coordination and mobility dysfunction may be due to
lithium toxicity but levels are improving - still [place] on hold.
Right hemiparesis: Chronic with CP.
Seizures: Continue Lamictal- monitor seizures, seizure precautions
UTI/leukocytosis - On keflex. Still with increased WBC's but ID feels related to lithium toxicity
MARIS: improving, Cr to 2.5
Hyponatremia - Improving
Renal Mass - Nephrology following - reportedly planned for biopsy. Tomorrow?
Large left frontal arachnoid cyst - Reportedly chronic and stable - neurosurgery was consulted, but nothing to do.
Psych: Psychology consult. On venlafaxine. Monitor mood, adjust medications as needed.
Skin: monitor for pressure sores/rashes/lesions.
Pain: acetaminophen as needed.
GI prophylaxis - Pepcid
DVT Prophylaxis: Hep SQ
Pulmonary: Incentive spirometry
Safety: Continue to reinforce assistance with all transfers.
Code Status: Full code
Dispo (date/plan/equipment needs): Eventual home with family care. Social history reviewed.
Functional and Medical Goals: Modified Independent with ADL�s, ambulation, transfers
Summary
-
Things that must be addressed in Hospital prior to discharge:
1. Please continue PT/OT.
2. Please give any parameters regarding MARIS/CKD
3. Please comment on dvt chemoprophylaxis restrictions.
Discharge Destination: Acute rehab when medically stable - planning on renal biopsy? And ensure stable WBC, afebrile, improving MARIS creatinine, and NA levels, and trending down on Li levels before consider trasfer to rehab.
Would benefit from rehab to improve transfers, mobility, balance, strength and ambulation to previously independent levels before discharge home.
Summary of recommendations:
- Discharge Destination: Acute rehab
Will sign off, please re-consult if needed.
Thank you for allowing me to care for your patient. Please contact me with any questions or concerns.
Data Reviewed
-
Radiology: Report Reviewed by me
Labs: Labs Reviewed by me
Comments
-
This note was dictated using a voice recognition system. Please excuse any typographical errors from welt trimming machine operator. If you believe there are any discrepancies, please notify our office.
--- NOTE | 2023-09-08 03:28 | DOWNTIME ---
There was a [employer] Downtime on 09/08/2023 from 0100 to 09/08/2023 at 0322. Downtime documentation of patient's care, including medication administrations, has been reconciled in the electronic record per guidelines. Refer to the
patient's paper chart under the miscellaneous tab to see printed paper medication records and downtime forms.
[2023-09-08] MEDS: D5W 1000 IV ×2 (05:07→12:30)
[2023-09-08 05:39] VITALS: BMI 36.1
[2023-09-08 07:00] VITALS: BP 149/85
[2023-09-08] MEDS: SODIUM BICARBONATE 650 MG PO ×3 (07:12→21:44)
[2023-09-08] MEDS: LAMICTAL 200 MG PO ×2 (07:12→20:21)
[2023-09-08] MEDS: HEPARIN 5000 UNITS SC (07:13)
[2023-09-08] MEDS: KEFLEX 500 MG PO ×2 (07:13→20:21)
[2023-09-08] MEDS: EFFEXOR XR 75 MG PO (07:13)
--- NOTE | 2023-09-08 07:29 | W.PN.HOSP.TC ---
Today's Communication/Plan
-
Monitor renal function. Possible renal biopsy.
Assessment / Plan
Assessment / Plan
Physical exam:
General: Acutely ill
HEENT: Normocephalic, Atraumatic and Moist Mucous Membranes
Respiratory: Some rhonchi in the right base; Negative Wheezes or Rales
Cardiac: Regular Rhythm and S1/S2
GI: Soft, Nontender and Nondistended
Musculoskeletal: Contractures in both right upper and lower extremities.� No Clubbing, No Cyanosis and No Edema
Neuro: Awake, Alert and Oriented, cognitively intact.� Right side spastic and paretic.� Nystagmus present.
Psych: Calm
A/P:
Impression:
Altered mental status-toxic metabolic encephalopathy
Seizures
Silvana toxicity
Large left frontal arachnoid cyst
Acute kidney injury
Hyponatremia
Hypernatremia
Metabolic acidosis
Hyperglycemia
Aspiration pneumonia/urinary tract infection
E. coli bacteremia
Elevated alkaline phosphatase
Conditions prior to presentation:
Cerebral palsy
Seizures
Probably CKD
Bipolar disorder
PLAN:
Continue Lamictal, current home doses
Continue seizure precautions
Creatinine 2.1 today
WBC 20.9
Silvana 0.8
Plan for possible renal biopsy
Plan for outpatient MRI renal evaluation
Urology consult either inpatient or outpatient
Appreciated nephrology consult and follow-up--> nephrology started on normal saline at 100 cc/h and discontinue 3% saline. Discussions about hemodialysis if and when needed will defer to nephrology.
Started on sodium bicarbonate and monitor acid-base balance
Good urine output in last 24hr, creatinine continues to trend down 2.1 today
Silvana level trending down > 1.5 > 0.8 - continue holding, psych following
Urine sodium 10, urine osmolarity 138, serum osmolarity 273, TSH 1.8, cortisol 32
ID input appreciated and they feel leukocytosis rather related to lithium and antibiotics changed to oral Keflex.
Initial blood cultures E. coli, repeated cultures no growth
Reviewed renal ultrasound results
Appreciate neurosurgery input--> neurosurgery already checked prior images and no change from before.
Appreciate psychiatry input-->Decrease venlafaxine to 75 mg daily
PT recommends acute rehab versus SNF
Rehab consulted on 09/05
Will add Pepcid for GERD symptoms
Discussed with significant other at bedside
Continue cardiac monitoring
Discharge planning in progress as soon as cleared by nephrology and rehab or SNF available
Heparin SQ for DVT prophylaxis
CODE STATUS full code
Anticipated Discharge: 24 - 48 hours
Subjective/Interval History
-
Date of Service: September 08, 2023
Patient doing well overall. Afebrile. RN reports polydipsia.
Objective Data
-
Labs:
Laboratory Results
09/08/23
07:17
WBC Pending
Hgb Pending
Hct Pending
Plt Count Pending
Sodium Pending
Potassium Pending
Chloride Pending
Carbon Dioxide Pending
BUN Pending
Creatinine Pending
Glucose Pending
Calcium Pending
Vital Signs:
Vital Signs
Temp Pulse Resp BP Pulse Ox
98.0 F 99 18 165/100 97
09/07/23 23:42 09/07/23 23:42 09/07/23 23:42 09/07/23 23:42 09/07/23 23:42
I&O
09/07/23 09/08/23 09/09/23
06:59 06:59 06:59
Intake Total 2760 / 2760 6240 / 6240
Output Total 4200 / 4200 34310 / 71379
Balance -1440 / -1440 -4110 / -4110
[2023-09-08 07:57] LABS: Hematocrit 34.3 % (37.0-47.0); Hemoglobin 11.4 g/dL (12.0-16.0); Mean Corp Hgb Conc. 33.2 g/dL (33.0-37.0); Mean Corpuscular Hgb 30.1 pg (27.0-31.0); Mean Corpuscular Volume 90.5 fL (81.0-99.0); Mean Platelet Volume 9.2 fL (7.4-10.4); Platelet Count 437 10^3/uL (130-400); Red Blood Cell Count 3.79 10^6/uL (4.20-5.40); Red Cell Dist. Width 15.2 % (11.5-14.5); White Blood Cell Count 20.9 10^3/uL (4.8-10.8)
[2023-09-08 08:23] LABS: Blood Urea Nitrogen 32 mg/dl (7-17); Calcium 10.2 mg/dl (8.4-10.2); Carbon Dioxide 19 mmol/L (22-30); Chloride 118 mmol/L (98-107); Estimated Creatinine Clearance 40 ml/min; Glucose 108 mg/dl (70-99); Sodium 148 mmol/L (135-145); eGFR 29.43
[2023-09-08 08:36] LABS: Potassium 4.2 mmol/L (3.5-5.1)
--- NOTE | 2023-09-08 10:39 | W.PN.ID1 ---
Date of Service
Date of Service: September 08, 2023
Today's Communication
Continue abx.
Assessment / Plan
Complicated urinary tract infection
E. coli bacteremia
Leukocytosis
Hyponatremia
MARIS
Arachnoid cyst
Seizure disorder
Bipolar disease
Cerebral palsy with right arm weakness
Recommendations:
Continue with keflex (d#7) in the treatment of E. coli UTI/bacteremia through 09/12/2023.
Monitor creatinine clearance; adjust antibiotics as appropriate.
Leukocytosis noted. Review of old records note that leukocytosis has been longstanding. Suspect may be secondary to lithium. No evidence of other occult infection at present. Will continue to monitor closely.
Monitor temperature curve.
For renal Bx.
����������������������������������������������������������
Chief Complaint
-: Leukocytosis and UTI
Subjective / Review of Systems
Review of Systems: No Fever and No Chills
Vital Signs / Physical Exam
Vital Signs
Vital Signs
Temp Pulse Resp BP Pulse Ox
98.7 F 85 18 149/85 99
09/08/23 07:00 09/08/23 07:00 09/08/23 07:00 09/08/23 07:00 09/08/23 07:15
Physical Exam
Constitutional: No Acute Distress, Comfortable and Non-toxic
Eyes: Sclera Anicteric
Pulmonary: Non Labored
Gastrointestinal: Soft and Non Distended
Genito-Urinary: Carrero and Clear Urine; Negative Turbid Urine or Hematuria
Extremities: Negative Cyanosis or Erythema
Neurological: Awake and Alert
Psychological: Calm
Objective Data
Lab Data
Lab Results
09/08/23 07:17
09/08/23 07:17
PT 15.6 Sec (11.4-14.6) H 09/02/23 15:23
INR 1.23 09/02/23 15:23
APTT 40.2 Sec (23.4-35.0) H 09/02/23 15:23
Estimated Creat Clear 40 ml/min 09/08/23 07:17
Lactic Acid Cancelled 09/04/23 06:00
Total Bilirubin 0.5 mg/dl (0.2-1.3) 09/04/23 03:35
AST 21 U/L (14-36) 09/04/23 03:35
ALT 14 U/L (0-35) 09/04/23 03:35
Alkaline Phosphatase 177 U/L (38-126) H 09/04/23 03:35
Most recent labs reviewed.
Micro Results:
09/03/23 15:40 Blood Culture - Preliminary
Blood/Venous No Growth in 4 days- Final report to follow
09/02/23 18:20 Blood Culture - Final
Blood/Venous Escherichia coli
Gram Stain - Final
09/02/23 18:19 Blood Culture - Final
Blood/Venous Escherichia coli
Gram Stain - Final
09/02/23 18:32 Urine Culture - Final
Urine Escherichia coli
Imaging:
09/03/2023 Renal ultrasound: No hydronephrosis noted. Kidneys of normal size and with mild medical renal disease. A 2.8 cm focus of rounded increased echogenicity is concerning for a possible mass. Contrast-enhanced MRI or CT is recommended.
Please see full dictation for additional detail.
--- NOTE | 2023-09-08 11:51 | W.PN.NEPH.PH ---
Today's Communication / Plan
-
renal biopsy in am
hold am heparin
add amiloride
bmp in am
hypotonic IVFs
push po fluids
Assessment/Plan
-
IMP:
AMS/confusion
Hyponatremia
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
MARIS-cr was 1 in 09/2022
Mild hypercalcemia
Everest toxicity
Elevated ALP
leucocytosis
Giant arachnoid cyst of brain
SZ D/O
Bipolar
Cerebral palsy
GN bacteremia
Left renal mass 2.8cm
+MPO
Plan:
-MARIS continues to improve
-renal biopsy canceled this am due to not holding am heparin
-will retry tomorrow
-add amiliride re DI with profound polyuric
-follow BMP
-continue bicarb
-continue hypotonic IVFs and increased fluid intake due to DI with worsening hypernatremia
-long d/w pt and regarding MPO 110. This may explain the MARIS as well. discussed biopsy, and they are agreeable. will ask IR for bx.
-this is different than for her left renal mass, which will need MRI eventually and urology consultation with possible biopsy option in the future.
-
-
Date of Service: September 08, 2023
CC / HPI / ROS
-
Chief Complaint:
MARIS
Hyponatremia
Everest toxicity
History of Present Illness:
hemodynamically stable
creatinine down to 2.1
acidosis with bicarb
now with GN bacteremia on Ceftriaxone
calcium stable 10.3
Na down to 148 with hypotonic IVF
Review of Systems:
non oliguric via johnson: polyuria
no chest pain or sob
neurologically intact
Labs
-
Labs:
WBC 20.9 10^3/uL (4.8-10.8) H 09/08/23 07:17
RBC 3.79 10^6/uL (4.20-5.40) L 09/08/23 07:17
Hgb 11.4 g/dL (12.0-16.0) L 09/08/23 07:17
Hct 34.3 % (37.0-47.0) L 09/08/23 07:17
Plt Count 437 10^3/uL (130-400) H 09/08/23 07:17
Sodium 148 mmol/L (135-145) H 09/08/23 07:17
Potassium 4.2 mmol/L (3.5-5.1) 09/08/23 07:17
Chloride 118 mmol/L (98-107) H 09/08/23 07:17
Carbon Dioxide 19 mmol/L (22-30) L 09/08/23 07:17
BUN 32 mg/dl (7-17) H 09/08/23 07:17
Creatinine 2.1 mg/dL (0.6-1.0) H 09/08/23 07:17
eGFR 29.43 09/08/23 07:17
Glucose 108 mg/dl (70-99) H 09/08/23 07:17
Calcium 10.2 mg/dl (8.4-10.2) 09/08/23 07:17
Phosphorus 2.5 mg/dl (2.5-4.5) 09/02/23 16:54
Albumin 3.2 g/dl (3.5-5.0) L 09/04/23 03:35
Physical Exam
-
Vital Signs:
Vital Signs
Temp Pulse Resp BP Pulse Ox
98.7 F 85 18 149/85 99
09/08/23 07:00 09/08/23 07:00 09/08/23 07:00 09/08/23 07:00 09/08/23 07:15
Cardiovascular:: Regular rate and rhythm
Respiratory:: Bilateral: CTA
Lung Excursion:: Normal
Abdomen:: Nontender and Soft
Bowel Sounds:: Normal
Extremity Edema:: None: Bilateral:
Johnson Catheter: Yes
--- NOTE | 2023-09-08 12:00 | W.PN.UPDATE ---
Update Note
Progress Note Update
patient seen chart reviewed. patient seen without and she was very able to engage in discussion with me about pertinent issues. noted her serum sodium is high today in contrast to hx of hyponatremia in the past. spoke with nursing staff who
report patient consumes a lot of fluid which of course goes along w the decreased sodium not necessarily the high sodium. she believes her consumption of fluids has to do with years of being told by her docs to drink fluid given taken lithium.
reinforced for her that she should not overdring. really the rule of thumb re lithium is to drink a consistent reasonable amount of fluid neither increasing or decreasing intake unless there are clear reasons for example to increase eg heat and
sweating. asked patient to consume no more than five or six of the 480 ml cups we use. nursing to monitor. will follow stopped zyprexa prn do not want us to start using antipsychotics unless absolutely needed. i don't see patient becoming
agitated or out of control
[2023-09-08] MEDS: MIDAMOR 10 MG PO (12:30)
[2023-09-08] MEDS: PEPCID 20 MG PO (12:30)
[2023-09-08 14:25] VITALS: BP 166/97; PULSE 96; O2SAT 98
[2023-09-08 14:27] VITALS: BP 166/97; PULSE 91; O2SAT 98
[2023-09-08 15:00] VITALS: BP 156/98
--- NOTE | 2023-09-08 15:19 | CM ---
CM reviewed chart, per Hospitalist note, possible renal biopsy. Per PM&R consult, recommending Acute Rehab, [facility] following. CM will update Gonz[facility] on patients discharge plan to see bed availability. CM will continue to follow for
discharge planning needs.
Plan; Acute Rehab when stable
[2023-09-08] MEDS: PROCARDIA XL (EXTENDED RELEASE) 30 MG PO (16:23)
[2023-09-08 23:00] VITALS: BP 124/85
[2023-09-09] VITALS (17 sets, daily range): BP systolic 98–169; BP diastolic 88–103; BMI 36.5
[2023-09-09] MEDS: D5W 1000 IV ×2 (00:04→17:10)
--- NOTE | 2023-09-09 06:54 | W.PN.URO.CBU ---
Today's Communication / Plan
-
per hospital;ist
Assessment / Plan
-
suggest waitnig to yina good imaging with mri Can biopsy as per nephrology but pt with brina and bx may be unnneccasary or lead to brina and bleed
Diagnosis
-
Date of Service: September 09, 2023
-
Patient Diagnosis:brina on lithoum and incidental 2.8 cm renal mass
Post Op Day:
Subjective
-
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
Objective
-
Vital Signs
Temp Pulse Resp BP Pulse Ox
98.4 F 87 12 124/85 99
09/08/23 23:00 09/08/23 23:00 09/08/23 23:00 09/08/23 23:00 09/08/23 23:00
Intake and Output
09/07/23 09/08/23 09/09/23
06:59 06:59 06:59
Intake Total 2760 / 2760 6240 / 6240 3360 / 3360
Output Total 4200 / 4200 12888 / 95937 8800 / 8800
Balance -1440 / -1440 -4110 / -4110 -5440 / -5440
Intake:
Oral fluids 1800 / 1800 5280 / 5280 2400 / 2400
IV fluids (Total) 960 / 960 960 / 960 960 / 960
Output:
Urine, Carrero 4200 / 4200 61116 / 53522 6200 / 6200
Urine, Voided 2600 / 2600
Review of Systems
-
: Difficulty Voiding
Physical Exam
-
General - well developed, well nourished, no acute distress
Chest - clear bilaterally
Abdomen - soft, non-tender, positive bowel sounds, no CVAT, no incisional pain or distention
Genitalia - normal
Rectal - normal
Skin - warm & dry with no rash
Neuro - AOx3, no motor deficits
Extremities - no clubbing, no cyanosis, no edema
Incision - clean, dry
Dressing - clean, dry, intact
Care Review
Data Reviewed
Discussed with: Hospitalist and Nursing
Ultrasound: Image Pers Reviewed
--- NOTE | 2023-09-09 07:08 | W.PN.UPDATE ---
Update Note
Progress Note Update
bx discussd and bsx is not for renal mass but for renal medical disease to guidr reatment . RENAL MASS VIVIAN BE EVALUATD LATER
[2023-09-09 07:40] LABS: % Basophils 0.7 % (0-2); % Eosinophils 2.2 % (0-6); % Immature Granulocytes 4.7 % (0-0.5); % Lymphocytes 16.5 % (20.5-51.1); % Monocytes 3.7 % (1.7-9.3); % Neutrophils 72.2 % (42.2-75.2); Absolute Basophils 0.2 10^3/uL (0-0.2); Absolute Eosinophils 0.5 10^3/uL (0-0.7); Absolute Immature Granulocytes 1.2 10^3/uL (0-0.05); Absolute Monocytes 0.9 10^3/uL (0.1-0.6); Absolute Neutrophils 17.7 10^3/uL (1.4-6.5); Hematocrit 37.6 % (37.0-47.0); Hemoglobin 12.1 g/dL (12.0-16.0); Mean Corp Hgb Conc. 32.2 g/dL (33.0-37.0); Mean Corpuscular Hgb 29.9 pg (27.0-31.0); Mean Corpuscular Volume 92.8 fL (81.0-99.0); Mean Platelet Volume 9.2 fL (7.4-10.4); Nucleated Red Blood Cells % 0 %; Platelet Count 464 10^3/uL (130-400); Red Blood Cell Count 4.05 10^6/uL (4.20-5.40); Red Cell Dist. Width 15.2 % (11.5-14.5); White Blood Cell Count 24.5 10^3/uL (4.8-10.8)
[2023-09-09 07:55] LABS: Blood Urea Nitrogen 29 mg/dl (7-17); Calcium 10.4 mg/dl (8.4-10.2); Carbon Dioxide 23 mmol/L (22-30); Chloride 120 mmol/L (98-107); Estimated Creatinine Clearance 45 ml/min; Glucose 103 mg/dl (70-99); Potassium 4.9 mmol/L (3.5-5.1); Sodium 150 mmol/L (135-145); eGFR 33.18
--- NOTE | 2023-09-09 08:31 | W.PN.HOSP.TC ---
Today's Communication/Plan
-
Hypotonic IV fluids. Renal biopsy. Urology eval. Monitor sodium and renal function closely.
Assessment / Plan
Assessment / Plan
Physical exam:
General: Acutely ill
HEENT: Normocephalic, Atraumatic and Moist Mucous Membranes
Respiratory: Some rhonchi in the right base; Negative Wheezes or Rales
Cardiac: Regular Rhythm and S1/S2
GI: Soft, Nontender and Nondistended
Musculoskeletal: Contractures in both right upper and lower extremities.� No Clubbing, No Cyanosis and No Edema
Neuro: Awake, Alert and Oriented, cognitively intact.� Right side spastic and paretic.� Nystagmus present.
Psych: Calm
A/P:
Impression:
Altered mental status-toxic metabolic encephalopathy
Seizures
[place] toxicity
Large left frontal arachnoid cyst
Acute kidney injury
Hyponatremia
Hypernatremia
Metabolic acidosis
Hyperglycemia
Aspiration pneumonia/urinary tract infection
E. coli bacteremia
Elevated alkaline phosphatase
Diabetes Insipidus
Conditions prior to presentation:
Cerebral palsy
Seizures
Probably CKD
Bipolar disorder
PLAN:
Continue Lamictal, current home doses
Continue seizure precautions
Started on amiloride on 09/07 by nephrology for DI
Creatinine 1.9 today
WBC 24.5 today
Na 150 today
[place] 0.8
Plan for possible renal biopsy
Plan for inpatient MRI renal evaluation of mass closer to d/c
Urology consult appreciated--> discussed with urology today.
Appreciated nephrology consult and follow-up--> currently on hypotonic IV fluids.
Started on sodium bicarbonate but will defer to nephrology the need for ongoing
Good urine output in last 24hr, creatinine continues to trend down 1.9 today
[place] level trending down > 1.5 > 0.8 - continue holding, psych following
Urine sodium 10, urine osmolarity 138, serum osmolarity 273, TSH 1.8, cortisol 32
ID input appreciated and they feel leukocytosis rather related to lithium and antibiotics changed to oral Keflex.
Initial blood cultures E. coli, repeated cultures no growth
Reviewed renal ultrasound results
Appreciate neurosurgery input--> neurosurgery already checked prior images and no change from before.
Appreciate psychiatry input-->Decrease venlafaxine to 75 mg daily
PT recommends acute rehab versus SNF
Rehab consulted on 09/05
Will add Pepcid for GERD symptoms
Discussed with significant other at bedside
Continue cardiac monitoring
Discharge planning in progress as soon as cleared by nephrology and rehab or SNF available
Heparin SQ for DVT prophylaxis--> hold for Bx
CODE STATUS full code
Total time spent on today's encounter was 52 minutes which included time spent in counseling the patient/family regarding diagnosis and treatment plan as listed above, goals of care, and symptom management. Case was discussed with nursing staff,
specialists, and care coordinators/case management. All labs and imaging personally reviewed by me. Remainder the time spent in detailed review of previous records, lab data, imaging, and other medical provider documentation.
Anticipated Discharge: > 48 hours
Subjective/Interval History
-
Date of Service: September 09, 2023
Patient denies any chest pain or shortness of breath. No fever.
Objective Data
-
Labs:
Laboratory Results
09/09/23
06:57
WBC 24.5 H
Hgb 12.1
Hct 37.6
Plt Count 464 H
Sodium 150 H
Potassium 4.9
Chloride 120 H
Carbon Dioxide 23
BUN 29 H
Creatinine 1.9 H
Glucose 103 H
Calcium 10.4 H
Vital Signs:
Vital Signs
Temp Pulse Resp BP Pulse Ox
97.9 F 77 17 158/97 96
09/09/23 07:47 09/09/23 07:47 09/09/23 07:47 09/09/23 07:47 09/09/23 07:47
I&O
09/08/23 09/09/23 09/10/23
06:59 06:59 06:59
Intake Total 6240 / 6240 3360 / 3360
Output Total 87362 / 55009 8800 / 8800
Balance -4110 / -4110 -5440 / -5440
Review of Systems
-
All other systems: Reviewed and negative
[2023-09-09] MEDS: LAMICTAL 200 MG PO ×2 (09:46→20:01)
[2023-09-09] MEDS: MIDAMOR 10 MG PO (09:46)
[2023-09-09] MEDS: EFFEXOR XR 75 MG PO (09:47)
[2023-09-09] MEDS: KEFLEX 500 MG PO ×2 (09:47→20:01)
[2023-09-09] MEDS: CATAPRES 0.100000000000000006 MG PO (10:56)
--- NOTE | 2023-09-09 12:38 | W.PN.UPDATE ---
Update Note
Progress Note Update
chart reviewed. patient presently in OR for renal bx. hopefully the mass in kidney is being assessed as well as renal parenchyma given that renal cell ca has a very good prognosis if dx early and sometimes patients are lost to followup if dx
postponed to after dc. noted wbc still very high. one might expect that if it is due to lithium it would have started to normalize as she has not had lithium for about a week although that is not always the case. will see her tomorrow
[2023-09-09] MEDS: SODIUM BICARBONATE 650 MG PO (13:30)
--- NOTE | 2023-09-09 13:57 | CM ---
Chart reviewed, patient for OR for renal biopsy. CM will continue to follow for discharge planning needs.
Plan; PT/OT recommending Acute Rehab, PM&R consult recommending Acute Rehab, [facility] following.
--- NOTE | 2023-09-09 15:32 | W.PN.NEPH.PH ---
Today's Communication / Plan
-
Maintain hypotonic IV fluid
Renal biopsy performed today
Follow-up H&H in a.m.
Discontinue sodium bicarb
Maintain Johnson cath
Assessment/Plan
-
IMP:
AMS/confusion
Hyponatremia
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
MARIS-cr was 1 in 09/2022
Mild hypercalcemia
[place] toxicity
Elevated ALP
leucocytosis
Giant arachnoid cyst of brain
SZ D/O
Bipolar
Cerebral palsy
GN bacteremia
Left renal mass 2.8cm
+MPO
Plan:
-MARIS continues to improve with creatinine down to 1.9
Hypernatremia continues to exacerbate with sodium up to 150 in setting of diabetes insipidus
uop >6liters despite addition of amiloride on 09/07 in setting of [place] induced DI
For renal biopsy today due to positive ANCA and active urine sediment
Will discontinue bicarb as acidosis correcting
continue hypotonic IVFs and increased fluid intake due to DI with worsening hypernatremia
Previous long d/w pt and regarding MPO 110. This may explain the MARIS as well. discussed biopsy, and they are agreeable. will ask IR for bx.
this is different than for her left renal mass, which will need MRI eventually and urology consultation with possible biopsy option in the future.
-
-
Date of Service: September 09, 2023
CC / HPI / ROS
-
Chief Complaint:
MARIS
Hyponatremia
[place] toxicity
History of Present Illness:
hemodynamically stable
Status post renal biopsy 09/09/2023
creatinine down to 1.9
acidosis with bicarb
now with GN bacteremia on Keflex
calcium stable 10.3
Na up to 150 despite hypotonic IVFs
Review of Systems:
non oliguric via johnson: polyuria
no chest pain or sob
neurologically intact
Labs
-
Labs:
WBC 24.5 10^3/uL (4.8-10.8) H 09/09/23 06:57
RBC 4.05 10^6/uL (4.20-5.40) L 09/09/23 06:57
Plt Count 464 10^3/uL (130-400) H 09/09/23 06:57
Sodium 150 mmol/L (135-145) H 09/09/23 06:57
Potassium 4.9 mmol/L (3.5-5.1) 09/09/23 06:57
Chloride 120 mmol/L (98-107) H 09/09/23 06:57
Carbon Dioxide 23 mmol/L (22-30) 09/09/23 06:57
BUN 29 mg/dl (7-17) H 09/09/23 06:57
Creatinine 1.9 mg/dL (0.6-1.0) H 09/09/23 06:57
eGFR 33.18 09/09/23 06:57
Glucose 103 mg/dl (70-99) H 09/09/23 06:57
Calcium 10.4 mg/dl (8.4-10.2) H 09/09/23 06:57
Phosphorus 2.5 mg/dl (2.5-4.5) 09/02/23 16:54
Albumin 3.2 g/dl (3.5-5.0) L 09/04/23 03:35
Physical Exam
-
Vital Signs:
Vital Signs
Temp Pulse Resp BP Pulse Ox
98.5 F 95 18 145/91 97
09/09/23 15:00 09/09/23 15:00 09/09/23 15:00 09/09/23 15:00 09/09/23 15:00
Cardiovascular:: Regular rate and rhythm
Respiratory:: Bilateral: CTA
Lung Excursion:: Normal
Abdomen:: Nontender and Soft
Bowel Sounds:: Normal
Extremity Edema:: None: Bilateral:
Johnson Catheter: Yes
[2023-09-09 16:41] LABS: Hematocrit 38.4 % (37.0-47.0); Hemoglobin 12.3 g/dL (12.0-16.0)
[2023-09-09] MEDS: PROCARDIA XL (EXTENDED RELEASE) 30 MG PO (17:10)
--- NOTE | 2023-09-09 18:01 | PTCARENOTE ---
Addendum entered by Kenyetta Le RN 09/09/23 18:31:
[id number] Ramírez post renal biopsy Hgb and Hct results, no further orders at this time.
Original Note:
1315 Pt returned from IR post renal biopsy via stretcher, Pt awake and verbalizing. Denies discomfort. VS stable, pulse ox 97% on room air.
Checked renal biopsy site right lower back. Bandaid intact no bleeding or hematoma noted. Noted slight bruising around biopsy site, IR notified, continue to monitor site closely.
1330-Biopsy site checked, No hematoma or bleeding noted, continue slight bruising.
1345 Biopsy site checked, No hematoma or bleeding noted, no further bruising noted.
1400 Biopsy site checked, No hematoma or bleeding noted, no further bruising noted.
1430 Biopsy site checked, No hematoma or bleeding noted, no further bruising noted.
1500 Biopsy site checked, No hematoma or bleeding noted, no further bruising noted.
1600 Biopsy site checked, No hematoma or bleeding noted, no further bruising noted.
1900 Biopsy site checked, No hematoma or bleeding noted, no further bruising noted.
Pt denies discomfort, Vs stable, report given to radiological health specialist nurse.
[2023-09-10 02:51] VITALS: BP 154/100
[2023-09-10] MEDS: D5W 1000 IV ×2 (03:07→12:58)
--- NOTE | 2023-09-10 03:41 | PTCARENOTE ---
1900 Pt's biopsy site checked, small amount of ecchymosis around dressing but no hematoma or bleeding noted.
2300 renal biopsy site checked, no hematoma or bleeding noted; small amount of ecchymosis around dressing.
0300 renal biopsy site checked, no hematoma or bleeding noted; small amount of ecchymosis around dressing as previously noted.
Pt denied pain or discomfort around biopsy site throughout shift.
[2023-09-10 06:00] VITALS: BMI 34.9
[2023-09-10 07:45] VITALS: BP 153/96
[2023-09-10 08:15] LABS: % Basophils 0.7 % (0-2); % Eosinophils 1.8 % (0-6); % Immature Granulocytes 3.2 % (0-0.5); % Lymphocytes 20.9 % (20.5-51.1); % Monocytes 4.5 % (1.7-9.3); % Neutrophils 68.9 % (42.2-75.2); Absolute Basophils 0.2 10^3/uL (0-0.2); Absolute Eosinophils 0.4 10^3/uL (0-0.7); Absolute Immature Granulocytes 0.8 10^3/uL (0-0.05); Absolute Monocytes 1.1 10^3/uL (0.1-0.6); Absolute Neutrophils 16.5 10^3/uL (1.4-6.5); Hematocrit 37.4 % (37.0-47.0); Hemoglobin 11.9 g/dL (12.0-16.0); Mean Corp Hgb Conc. 31.8 g/dL (33.0-37.0); Mean Corpuscular Hgb 29.3 pg (27.0-31.0); Mean Corpuscular Volume 92.1 fL (81.0-99.0); Mean Platelet Volume 9.3 fL (7.4-10.4); Nucleated Red Blood Cells % 0 %; Platelet Count 470 10^3/uL (130-400); Red Blood Cell Count 4.06 10^6/uL (4.20-5.40); Red Cell Dist. Width 14.7 % (11.5-14.5)
[2023-09-10] MEDS: LAMICTAL 200 MG PO ×2 (08:19→21:26)
[2023-09-10] MEDS: KEFLEX 500 MG PO ×2 (08:19→21:26)
[2023-09-10] MEDS: MIDAMOR 10 MG PO (08:19)
[2023-09-10] MEDS: EFFEXOR XR 75 MG PO (08:20)
[2023-09-10 08:55] LABS: Blood Urea Nitrogen 23 mg/dl (7-17); Calcium 10.2 mg/dl (8.4-10.2); Carbon Dioxide 21 mmol/L (22-30); Chloride 109 mmol/L (98-107); Estimated Creatinine Clearance 49 ml/min; Glucose 93 mg/dl (70-99); Potassium 4.4 mmol/L (3.5-5.1); Sodium 142 mmol/L (135-145); eGFR 37.92
--- NOTE | 2023-09-10 09:04 | W.PN.HOSP.TC ---
Today's Communication/Plan
-
Holding lithium. Waiting for renal biopsy. Hypotonic IV fluids.
Assessment / Plan
Assessment / Plan
Physical exam:
General: Acutely ill
HEENT: Normocephalic, Atraumatic and Moist Mucous Membranes
Respiratory: Some rhonchi in the right base; Negative Wheezes or Rales
Cardiac: Regular Rhythm and S1/S2
GI: Soft, Nontender and Nondistended
Musculoskeletal: Contractures in both right upper and lower extremities.� No Clubbing, No Cyanosis and No Edema
Neuro: Awake, Alert and Oriented, cognitively intact.� Right side spastic and paretic.� Nystagmus present.
Psych: Calm
A/P:
Impression:
Altered mental status-toxic metabolic encephalopathy
Seizures
[place] toxicity
Large left frontal arachnoid cyst
Acute kidney injury
Hyponatremia
Hypernatremia
Metabolic acidosis
Hyperglycemia
Aspiration pneumonia/urinary tract infection
E. coli bacteremia
Elevated alkaline phosphatase
Diabetes Insipidus
Conditions prior to presentation:
Cerebral palsy
Seizures
Probably CKD
Bipolar disorder
PLAN:
Continue Lamictal, current home doses
Continue seizure precautions
Started on amiloride on 09/07 by nephrology and today started on desmopressin on 09/09 by nephrology as well.
Creatinine 1.7 today
WBC 24 today
Na 142 today
[place] 0.8
S/P renal biopsy on 09/08
Plan for inpatient MRI renal evaluation of mass closer to d/c
Urology consult appreciated--> discussed with urology today.
Appreciated nephrology consult and follow-up--> currently on hypotonic IV fluids.
Started on sodium bicarbonate but will defer to nephrology the need for ongoing
Good urine output in last 24hr, creatinine continues to trend down 1.7 today
[place] level trending down > 1.5 > 0.8 - continue holding, psych following
Urine sodium 10, urine osmolarity 138, serum osmolarity 273, TSH 1.8, cortisol 32
ID input appreciated and they feel leukocytosis rather related to lithium and antibiotics changed to oral Keflex.
Initial blood cultures E. coli, repeated cultures no growth
Reviewed renal ultrasound results
Appreciate neurosurgery input--> neurosurgery already checked prior images and no change from before.
Appreciate psychiatry input-->Decrease venlafaxine to 75 mg daily
PT recommends acute rehab versus SNF
Rehab consulted on 09/05
Will add Pepcid for GERD symptoms
Discussed with significant other at bedside
Continue cardiac monitoring
Heparin SQ for DVT prophylaxis--> hold for Bx but now can resume
CODE STATUS full code
Total time spent on today's encounter was 52 minutes which included time spent in counseling the patient/family regarding diagnosis and treatment plan as listed above, goals of care, and symptom management. Case was discussed with nursing staff,
specialists, and care coordinators/case management. All labs and imaging personally reviewed by me. Remainder the time spent in detailed review of previous records, lab data, imaging, and other medical provider documentation.
Anticipated Discharge: > 48 hours
Subjective/Interval History
-
Date of Service: September 10, 2023
Patient feels well overall today. No chest pain or shortness of breath.
Objective Data
-
Labs:
Laboratory Results
09/10/23
06:48
WBC 24.0 H
Hgb 11.9 L
Hct 37.4
Plt Count 470 H
Sodium 142 D
Potassium 4.4
Chloride 109 H
Carbon Dioxide 21 L
BUN 23 H
Creatinine 1.7 H
Glucose 93
Calcium 10.2
Vital Signs:
Vital Signs
Temp Pulse Resp BP Pulse Ox
98.0 F 76 18 153/96 97
09/10/23 07:45 03/29/24 07:45 09/10/23 07:45 09/10/23 07:45 09/10/23 07:45
I&O
09/09/23 09/10/23 09/11/23
06:59 06:59 06:59
Intake Total 3360 / 3360 3860 / 3860
Output Total 8800 / 8800 7900 / 7900
Balance -5440 / -5440 -4040 / -4040
Review of Systems
-
All other systems: Reviewed and negative
[2023-09-10 11:41] VITALS: BP 130/77
--- NOTE | 2023-09-10 12:41 | W.PN.NEPH.PH ---
Today's Communication / Plan
-
DDAVP
Assessment/Plan
-
IMP:
AMS/confusion
Hyponatremia
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
MARIS-cr was 1 in 09/2022
Mild hypercalcemia
[place] toxicity
Elevated ALP
leucocytosis
Giant arachnoid cyst of brain
SZ D/O
Bipolar
Cerebral palsy
GN bacteremia
Left renal mass 2.8cm
+MPO
Plan:
follow BMP
-DDAVP 0.05 BID
continue D5W
midline
await biopsy report
continue amiloride
-
-
Date of Service: September 10, 2023
CC / HPI / ROS
-
Chief Complaint:
MARIS
Hyponatremia
[place] toxicity
History of Present Illness:
hemodynamically stable
Status post renal biopsy 09/09/2023
creatinine down to 1.7
acidosis with bicarb
now with GN bacteremia on Keflex
calcium stable 10.2
Na down to 142 with D5W
Review of Systems:
non oliguric via johnson: polyuria
no chest pain or sob
neurologically intact
Labs
-
Labs:
WBC 24.0 10^3/uL (4.8-10.8) H 09/10/23 06:48
RBC 4.06 10^6/uL (4.20-5.40) L 09/10/23 06:48
Hgb 11.9 g/dL (12.0-16.0) L 09/10/23 06:48
Hct 37.4 % (37.0-47.0) 09/10/23 06:48
Plt Count 470 10^3/uL (130-400) H 09/10/23 06:48
Sodium 142 mmol/L (135-145) D 09/10/23 06:48
Potassium 4.4 mmol/L (3.5-5.1) 09/10/23 06:48
Chloride 109 mmol/L (98-107) H 09/10/23 06:48
Carbon Dioxide 21 mmol/L (22-30) L 09/10/23 06:48
BUN 23 mg/dl (7-17) H 09/10/23 06:48
Creatinine 1.7 mg/dL (0.6-1.0) H 09/10/23 06:48
eGFR 37.92 09/10/23 06:48
Glucose 93 mg/dl (70-99) 09/10/23 06:48
Calcium 10.2 mg/dl (8.4-10.2) 09/10/23 06:48
Phosphorus 2.5 mg/dl (2.5-4.5) 09/02/23 16:54
Albumin 3.2 g/dl (3.5-5.0) L 09/04/23 03:35
Physical Exam
-
Vital Signs:
Vital Signs
Temp Pulse Resp BP Pulse Ox
98.7 F 85 17 130/77 99
09/10/23 11:41 09/10/23 11:41 09/10/23 11:41 09/10/23 11:41 09/10/23 11:41
Cardiovascular:: Regular rate and rhythm
Respiratory:: Bilateral: Coarse
Lung Excursion:: Normal
Abdomen:: Nontender and Soft
Bowel Sounds:: Normal
Extremity Edema:: None: Bilateral:
--- NOTE | 2023-09-10 12:49 | W.PN.UPDATE ---
Update Note
Progress Note Update
patient seen chart reviewed. patient is quite calm considering the stress of this hospitalization. nephrology notes appreciated. spoke with nursing. spoke with dr garcia yesterday. discussed with patient the current issues w kidney. she asked
some questions eg what is creatinine which i was able to explain to her. bx done and sent to [place] for assessment. she asked some questions about her illness as did who was present . the patient expressed concern about how is
dealing with her illness. it seemed to me a reversal of roles at this point for this couple as a few days ago while in icu it was insisting she needed him to care for her. she told him he needed to relax essentially. after he left patient
told me that sometimes she needs to support him and now is one of those times. no changes made in psych meds currently lamictal and effexor. creatinine is improving. serum sodium coming down. psych will continue to offer support.
[2023-09-10 13:22] LABS: Osmolality Urine 121 mOsm/kg (300-900)
[2023-09-10] MEDS: PEPCID 20 MG PO (14:21)
--- NOTE | 2023-09-10 14:30 | CM ---
Patient seen bedside. Patient reports she feels as though she is close to her baseline in regards to her mobility and is hopeful she may not need acute rehab. CM will continue to follow for discharge planning needs, will watch PT/OT evaluations to
see recommendations.
Plan; Acute Rehab, patient hopeful she will not need rehab and is getting close to her baseline.
[2023-09-10 15:05] VITALS: BP 152/105
[2023-09-10 15:27] VITALS: BP 129/91
[2023-09-10 16:42] LABS: Urine Sodium < 5 mmol/L (30-90)
[2023-09-10] MEDS: PROCARDIA XL (EXTENDED RELEASE) 30 MG PO (17:16)
[2023-09-10] MEDS: HEPARIN 5000 UNITS SC (21:27)
[2023-09-10] MEDS: DDAVP 0.0500000000000000028 MG PO (21:30)
[2023-09-10 23:45] VITALS: BP 157/77
[2023-09-11 06:00] VITALS: BMI 33.9
[2023-09-11 06:10] LABS: Hematocrit 38.3 % (37.0-47.0); Hemoglobin 12.5 g/dL (12.0-16.0); Mean Corp Hgb Conc. 32.6 g/dL (33.0-37.0); Mean Corpuscular Hgb 29.6 pg (27.0-31.0); Mean Corpuscular Volume 90.8 fL (81.0-99.0); Mean Platelet Volume 9.1 fL (7.4-10.4); Platelet Count 551 10^3/uL (130-400); Red Blood Cell Count 4.22 10^6/uL (4.20-5.40); Red Cell Dist. Width 14.4 % (11.5-14.5); White Blood Cell Count 23.1 10^3/uL (4.8-10.8)
[2023-09-11 06:23] LABS: Blood Urea Nitrogen 21 mg/dl (7-17); Calcium 10.5 mg/dl (8.4-10.2); Carbon Dioxide 21 mmol/L (22-30); Chloride 113 mmol/L (98-107); Estimated Creatinine Clearance 52 ml/min; Glucose 108 mg/dl (70-99); Potassium 5.4 mmol/L (3.5-5.1); Sodium 141 mmol/L (135-145); eGFR 40.78
[2023-09-11] MEDS: D5W 1000 IV (06:29)
[2023-09-11 07:56] VITALS: BP 128/86
[2023-09-11] MEDS: KEFLEX 500 MG PO ×2 (08:04→20:51)
[2023-09-11] MEDS: MIDAMOR 10 MG PO (08:04)
[2023-09-11] MEDS: LAMICTAL 200 MG PO ×2 (08:04→20:51)
[2023-09-11] MEDS: HEPARIN 5000 UNITS SC ×2 (08:05→20:51)
--- NOTE | 2023-09-11 08:18 | W.PN.HOSP.TC ---
Today's Communication/Plan
-
Desmopressin. Amiloride. Oral Keflex.
Assessment / Plan
Assessment / Plan
Physical exam:
General: Acutely ill
HEENT: Normocephalic, Atraumatic and Moist Mucous Membranes
Respiratory: Some rhonchi in the right base; Negative Wheezes or Rales
Cardiac: Regular Rhythm and S1/S2
GI: Soft, Nontender and Nondistended
Musculoskeletal: Contractures in both right upper and lower extremities.� No Clubbing, No Cyanosis and No Edema
Neuro: Awake, Alert and Oriented, cognitively intact.� Right side spastic and paretic.� Nystagmus present.
Psych: Calm
A/P:
Impression:
Altered mental status-toxic metabolic encephalopathy
Seizures
[place] toxicity
Large left frontal arachnoid cyst
Acute kidney injury
Hyponatremia
Hypernatremia
Metabolic acidosis
Hyperglycemia
Aspiration pneumonia/urinary tract infection
E. coli bacteremia
Elevated alkaline phosphatase
Diabetes Insipidus
Hypertension
Conditions prior to presentation:
Cerebral palsy
Seizures
Probably CKD
Bipolar disorder
PLAN:
Continue Lamictal, current home doses
Continue seizure precautions
Started on amiloride on 09/07 by nephrology and today started on desmopressin on 09/09 by nephrology as well.
Started on nifedipine 30 milligrams nightly by renal.
Creatinine 1.6 today
WBC 23.1 today
Na 141 today
[place] 0.8
S/P renal biopsy on 09/08
Plan for inpatient MRI renal evaluation of mass closer to d/c
Urology consult appreciated--> discussed with urology.
Appreciated nephrology consult and follow-up--> currently on hypotonic IV fluids.
Started on sodium bicarbonate but will defer to nephrology the need for ongoing
Good urine output in last 24hr, creatinine continues to trend down 1.6 today
[place] level trending down > 1.5 > 0.8 - continue holding, psych following
Urine sodium 10, urine osmolarity 138, serum osmolarity 273, TSH 1.8, cortisol 32
ID input appreciated and they feel leukocytosis rather related to lithium and antibiotics changed to oral Keflex. Oral Keflex to continue until tomorrow 09/11.
Initial blood cultures E. coli, repeated cultures no growth
Reviewed renal ultrasound results
Appreciate neurosurgery input--> neurosurgery already checked prior images and no change from before.
Appreciate psychiatry input-->Decrease venlafaxine to 75 mg daily
PT recommends acute rehab versus SNF
Rehab consulted on 09/05
Will add Pepcid for GERD symptoms
Discussed with significant other at bedside prior
Continue cardiac monitoring
Heparin SQ for DVT prophylaxis
CODE STATUS full code
Total time spent on today's encounter was 52 minutes which included time spent in counseling the patient/family regarding diagnosis and treatment plan as listed above, goals of care, and symptom management. Case was discussed with nursing staff,
specialists, and care coordinators/case management. All labs and imaging personally reviewed by me. Remainder the time spent in detailed review of previous records, lab data, imaging, and other medical provider documentation.
Anticipated Discharge: > 48 hours
Subjective/Interval History
-
Date of Service: September 11, 2023
Patient feels well today. No chest pain or shortness of breath. No abdominal pain. No fever. Polyuria
Objective Data
-
Labs:
Laboratory Results
09/11/23
05:40
WBC 23.1 H
Hgb 12.5
Hct 38.3
Plt Count 551 H
Sodium 141
Potassium 5.4 H
Chloride 113 H
Carbon Dioxide 21 L
BUN 21 H
Creatinine 1.6 H
Glucose 108 H
Calcium 10.5 H
Vital Signs:
Vital Signs
Temp Pulse Resp BP Pulse Ox
98.3 F 86 16 157/77 98
09/10/23 23:45 09/11/23 08:04 09/10/23 23:45 09/11/23 08:04 09/10/23 23:45
I&O
09/10/23 09/11/23 09/12/23
06:59 06:59 06:59
Intake Total 3860 / 3860 1140 / 1140 1080 / 1080
Output Total 7900 / 7900 2200 / 2200 4550 / 4550
Balance -4040 / -4040 -1060 / -1060 -3470 / -3470
Review of Systems
-
All other systems: Reviewed and negative
[2023-09-11] MEDS: DDAVP 0.0500000000000000028 MG PO (08:54)
[2023-09-11] MEDS: EFFEXOR XR 75 MG PO (08:54)
--- NOTE | 2023-09-11 09:42 | W.PN.UPDATE ---
Update Note
Progress Note Update
Patient is doing well, feels that her mood is stable, denies significant mood swings. Affect and mood are WNR, denies dysphoria, anhedonia, hopelessness or suicidal thoughts. Sodium is now WNR, potassium elevated at 5.4.
For now I would continue current psychotropic medications as she seems stable and feels that pharmacotherapy is helping and denies side effects.
--- NOTE | 2023-09-11 12:56 | W.PN.NEPH.PH ---
Today's Communication / Plan
-
ddavp
Assessment/Plan
-
IMP:
AMS/confusion
Hyponatremia
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
MARIS-cr was 1 in 09/2022
Mild hypercalcemia
[place] toxicity
Elevated ALP
leucocytosis
Giant arachnoid cyst of brain
SZ D/O
Bipolar
Cerebral palsy
GN bacteremia
Left renal mass 2.8cm
+MPO
Plan:
follow BMP
DDAVP 0.1 BID
continue D5W
midline
await biopsy report
dc amiloride
-
-
Date of Service: September 11, 2023
CC / HPI / ROS
-
Chief Complaint:
MARIS
Hyponatremia
[place] toxicity
History of Present Illness:
hemodynamically stable
Status post renal biopsy 09/09/2023
creatinine down to 1.6
K up to 5.4
acidosis with bicarb stable
now with GN bacteremia on Keflex
calcium stable 10.5
Na down to 141 with D5W/DDAVP
Review of Systems:
non oliguric via johnson: polyuria
no chest pain or sob
neurologically intact
Labs
-
Labs:
WBC 23.1 10^3/uL (4.8-10.8) H 09/11/23 05:40
RBC 4.22 10^6/uL (4.20-5.40) 09/11/23 05:40
Hgb 12.5 g/dL (12.0-16.0) 09/11/23 05:40
Hct 38.3 % (37.0-47.0) 09/11/23 05:40
Plt Count 551 10^3/uL (130-400) H 09/11/23 05:40
Sodium 141 mmol/L (135-145) 09/11/23 05:40
Potassium 5.4 mmol/L (3.5-5.1) H 09/11/23 05:40
Chloride 113 mmol/L (98-107) H 09/11/23 05:40
Carbon Dioxide 21 mmol/L (22-30) L 09/11/23 05:40
BUN 21 mg/dl (7-17) H 09/11/23 05:40
Creatinine 1.6 mg/dL (0.6-1.0) H 09/11/23 05:40
eGFR 40.78 09/11/23 05:40
Glucose 108 mg/dl (70-99) H 09/11/23 05:40
Calcium 10.5 mg/dl (8.4-10.2) H 09/11/23 05:40
Phosphorus 2.5 mg/dl (2.5-4.5) 09/02/23 16:54
Albumin 3.2 g/dl (3.5-5.0) L 09/04/23 03:35
Physical Exam
-
Vital Signs:
Vital Signs
Temp Pulse Resp BP Pulse Ox
98.4 F 86 20 157/77 97
09/11/23 07:56 09/11/23 08:04 09/11/23 07:56 09/11/23 08:04 09/11/23 07:56
Cardiovascular:: Regular rate and rhythm
Respiratory:: Bilateral: Coarse
Lung Excursion:: Normal
Abdomen:: Nontender and Soft
Bowel Sounds:: Normal
Extremity Edema:: None: Bilateral:
[2023-09-11 15:00] VITALS: BP 142/81
[2023-09-11] MEDS: PROCARDIA XL (EXTENDED RELEASE) 30 MG PO (17:07)
[2023-09-11] MEDS: DDAVP 0.100000000000000006 MG PO (20:51)
[2023-09-11 23:00] VITALS: BP 137/71
[2023-09-12] MEDS: D5W 1000 IV ×2 (00:16→16:10)
[2023-09-12 06:00] VITALS: BMI 33.6
[2023-09-12 07:56] VITALS: BP 142/88
[2023-09-12] MEDS: KEFLEX 500 MG PO ×2 (08:13→20:28)
[2023-09-12] MEDS: DDAVP 0.100000000000000006 MG PO (08:13)
[2023-09-12] MEDS: EFFEXOR XR 75 MG PO (08:13)
[2023-09-12] MEDS: LAMICTAL 200 MG PO ×2 (08:13→20:28)
[2023-09-12] MEDS: HEPARIN 5000 UNITS SC ×2 (08:15→20:30)
--- NOTE | 2023-09-12 08:28 | W.PN.HOSP.TC ---
Today's Communication/Plan
-
Antibiotics. DDAVP. IVF.
Assessment / Plan
Assessment / Plan
Physical exam:
General: Acutely ill
HEENT: Normocephalic, Atraumatic and Moist Mucous Membranes
Respiratory: Some rhonchi in the right base; Negative Wheezes or Rales
Cardiac: Regular Rhythm and S1/S2
GI: Soft, Nontender and Nondistended
Musculoskeletal: Contractures in both right upper and lower extremities.� No Clubbing, No Cyanosis and No Edema
Neuro: Awake, Alert and Oriented, cognitively intact.� Right side spastic and paretic.� Nystagmus present.
Psych: Calm
A/P:
Impression:
Altered mental status-toxic metabolic encephalopathy
Seizures
[place] toxicity
Large left frontal arachnoid cyst
Acute kidney injury
Hyponatremia
Hypernatremia
Metabolic acidosis
Hyperglycemia
Aspiration pneumonia/urinary tract infection
E. coli bacteremia
Elevated alkaline phosphatase
Diabetes Insipidus
Hypertension
Hypercalcemia prob PHPT
Hyperkalemia
Conditions prior to presentation:
Cerebral palsy
Seizures
Probably CKD
Bipolar disorder
PLAN:
Continue Lamictal, current home doses
Continue seizure precautions
Started on amiloride on 09/07 by nephrology and today started on desmopressin on 09/09 by nephrology as well.
Started on nifedipine 30 mg HS.
Might consider [place] if calcium not coming down.
Creatinine 1.5 today
WBC 20.2 today
Na 134 today
[place] 0.8
S/P renal biopsy on 09/08
Plan for inpatient MRI renal evaluation of mass closer to d/c
Urology consult appreciated--> discussed with urology.
Appreciated nephrology consult and follow-up--> currently on hypotonic IV fluids.
Stopped sodium bicarbonate
Good urine output in last 24hr, creatinine continues to trend down 1.5 today
[place] level trending down > 1.5 > 0.8 - continue holding, psych following
Urine sodium 10, urine osmolarity 138, serum osmolarity 273, TSH 1.8, cortisol 32
ID input appreciated and they feel leukocytosis rather related to lithium and antibiotics changed to oral Keflex. Oral Keflex to finish today per ID recommendations.
Initial blood cultures E. coli, repeated cultures no growth
Reviewed renal ultrasound results
Appreciate neurosurgery input--> neurosurgery already checked prior images and no change from before.
Appreciate psychiatry input-->Decrease venlafaxine to 75 mg daily
PT recommends acute rehab versus SNF
Rehab consulted on 09/05
Will add Pepcid for GERD symptoms
Discussed with significant other at bedside today on 09/11
Continue cardiac monitoring
Heparin SQ for DVT prophylaxis
CODE STATUS full code
Total time spent on today's encounter was 52 minutes which included time spent in counseling the patient/family regarding diagnosis and treatment plan as listed above, goals of care, and symptom management. Case was discussed with nursing staff,
specialists, and care coordinators/case management. All labs and imaging personally reviewed by me. Remainder the time spent in detailed review of previous records, lab data, imaging, and other medical provider documentation.
Anticipated Discharge: > 48 hours
Subjective/Interval History
-
Date of Service: September 12, 2023
Patient denies any cp or sob. No n/v/d. She is in good spirit today. Carrero in place. at bedside appears more anxious than her at the moment.
Objective Data
-
Labs:
Laboratory Results
09/12/23
08:27
WBC Pending
Hgb Pending
Hct Pending
Plt Count Pending
Sodium Pending
Potassium Pending
Chloride Pending
Carbon Dioxide Pending
BUN Pending
Creatinine Pending
Glucose Pending
Calcium Pending
Vital Signs:
Vital Signs
Temp Pulse Resp BP Pulse Ox
98.3 F 87 17 137/71 97
09/11/23 23:00 09/11/23 23:00 09/11/23 23:00 09/11/23 23:00 09/11/23 23:00
I&O
09/11/23 09/12/23 09/13/23
06:59 06:59 06:59
Intake Total 1140 / 1140 5500 / 5500
Output Total 2200 / 2200 35785 / 07692
Balance -1060 / -1060 -5600 / -5600
Review of Systems
-
All other systems: Reviewed and negative
[2023-09-12 08:39] LABS: Hematocrit 43.5 % (37.0-47.0); Hemoglobin 13.9 g/dL (12.0-16.0); Mean Corpuscular Hgb 29.5 pg (27.0-31.0); Mean Corpuscular Volume 92.4 fL (81.0-99.0); Mean Platelet Volume 9.1 fL (7.4-10.4); Platelet Count 632 10^3/uL (130-400); Red Blood Cell Count 4.71 10^6/uL (4.20-5.40); Red Cell Dist. Width 13.9 % (11.5-14.5); White Blood Cell Count 20.2 10^3/uL (4.8-10.8)
[2023-09-12 09:20] LABS: Blood Urea Nitrogen 28 mg/dl (7-17); Calcium 11.4 mg/dl (8.4-10.2); Carbon Dioxide 19 mmol/L (22-30); Chloride 107 mmol/L (98-107); Glucose 99 mg/dl (70-99); Potassium 5.8 mmol/L (3.5-5.1); Sodium 141 mmol/L (135-145)
[2023-09-12 09:29] LABS: Estimated Creatinine Clearance 48 ml/min; eGFR 37.92
--- NOTE | 2023-09-12 11:27 | W.PN.NEPH.PH ---
Addendum entered and electronically signed by Martin Saul MD 09/12/23 11:32:
likely PHPT with PTH 90.
Original Note:
Today's Communication / Plan
-
treat K
Assessment/Plan
-
IMP:
AMS/confusion
Hyponatremia
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
MARIS-cr was 1 in 09/2022
Mild hypercalcemia
[place] toxicity
Elevated ALP
leucocytosis
Giant arachnoid cyst of brain
SZ D/O
Bipolar
Cerebral palsy
GN bacteremia
Left renal mass 2.8cm
+MPO
Plan:
follow BMP
increase DDAVP 0.15 BID
continue D5W
hyperCa w/u
await biopsy report
If Calcium remains >11, give aredia
-
-
Date of Service: September 12, 2023
CC / HPI / ROS
-
Chief Complaint:
MARIS
Hyponatremia
[place] toxicity
History of Present Illness:
hemodynamically stable
Status post renal biopsy 09/09/2023
creatinine stable at 1.7
K up to 5.8
acidosis with bicarb stable
now with GN bacteremia on Keflex
calcium up to 11.4
Na stable at 141 with D5W/DDAVP
Review of Systems:
non oliguric via johnson: polyuria still. 10L
no chest pain or sob
neurologically intact
Labs
-
Labs:
WBC 20.2 10^3/uL (4.8-10.8) H 09/12/23 08:27
RBC 4.71 10^6/uL (4.20-5.40) 09/12/23 08:27
Hgb 13.9 g/dL (12.0-16.0) 09/12/23 08:27
Hct 43.5 % (37.0-47.0) 09/12/23 08:27
Plt Count 632 10^3/uL (130-400) H 09/12/23 08:27
Sodium 141 mmol/L (135-145) 09/12/23 08:27
Potassium 5.8 mmol/L (3.5-5.1) H 09/12/23 08:27
Chloride 107 mmol/L (98-107) 09/12/23 08:27
Carbon Dioxide 19 mmol/L (22-30) L 09/12/23 08:27
BUN 28 mg/dl (7-17) H 09/12/23 08:27
Creatinine 1.7 mg/dL (0.6-1.0) H 09/12/23 08:27
eGFR 37.92 09/12/23 08:27
Glucose 99 mg/dl (70-99) 09/12/23 08:27
Calcium 11.4 mg/dl (8.4-10.2) H 09/12/23 08:27
Phosphorus 2.5 mg/dl (2.5-4.5) 09/02/23 16:54
Albumin 3.2 g/dl (3.5-5.0) L 09/04/23 03:35
Physical Exam
-
Vital Signs:
Vital Signs
Temp Pulse Resp BP Pulse Ox
98.3 F 87 17 137/71 97
09/11/23 23:00 09/11/23 23:00 09/11/23 23:00 09/11/23 23:00 09/11/23 23:00
[2023-09-12] MEDS: LOKELMA 10 GRAM PO (12:37)
[2023-09-12] MEDS: DEXTROSE 50% SYRINGE 25 GRAMS IV (12:37)
[2023-09-12] MEDS: NOVOLIN R 0.100000000000000006 UNITS IV (12:38)
[2023-09-12 12:44] LABS: Glucose - Point of Care 98 mg/dl (70-99)
[2023-09-12] MEDS: PEPCID 20 MG PO (12:50)
--- NOTE | 2023-09-12 14:01 | W.PN.UPDATE ---
Update Note
Progress Note Update
Reviewed pt's chart/ spoke with patient- 20 minutes
Pt was cooperative, pleasant and coherent today. she explained to me how much better she feels now that when she came in to the hospital. We talked about how long she had been on [place], and her regret that she wasn't taken off it sooner. She is
pleasantly surprised at her improvement in terms of less emotional lability on Lamictal.
She is understandably nervous about finding out the results of her renal biopsy.
No changes in meds recommended.
[2023-09-12 15:41] VITALS: BP 137/85
[2023-09-12 16:18] LABS: Albumin 4.1 g/dl (3.5-5.0); Blood Urea Nitrogen 31 mg/dl (7-17); Carbon Dioxide 18 mmol/L (22-30); Chloride 103 mmol/L (98-107); Estimated Creatinine Clearance 54 ml/min; Glucose 97 mg/dl (70-99); Phosphorus 6.2 mg/dl (2.5-4.5); Potassium 5.2 mmol/L (3.5-5.1); Sodium 134 mmol/L (135-145); eGFR 44.07
[2023-09-12] MEDS: PROCARDIA XL (EXTENDED RELEASE) 30 MG PO (17:34)
[2023-09-12] MEDS: DDAVP 0.149999999999999994 MG PO (20:28)
[2023-09-12] MEDS: AREDIA 260 MG IV (23:08)
[2023-09-12 23:14] VITALS: BP 133/77
[2023-09-13 06:00] VITALS: BMI 33.5
[2023-09-13 07:20] VITALS: BP 143/90
[2023-09-13] MEDS: EFFEXOR XR 75 MG PO (09:20)
[2023-09-13] MEDS: LAMICTAL 200 MG PO ×2 (09:21→19:41)
[2023-09-13] MEDS: DDAVP 0.149999999999999994 MG PO ×2 (09:21→19:41)
[2023-09-13] MEDS: HEPARIN 5000 UNITS SC ×2 (09:21→19:42)
[2023-09-13 11:01] LABS: % Eosinophils 0.9 % (0-6); % Immature Granulocytes 1.1 % (0-0.5); % Lymphocytes 17.8 % (20.5-51.1); % Neutrophils 74.2 % (42.2-75.2); Absolute Basophils 0.2 10^3/uL (0-0.2); Absolute Eosinophils 0.2 10^3/uL (0-0.7); Absolute Immature Granulocytes 0.2 10^3/uL (0-0.05); Absolute Monocytes 0.8 10^3/uL (0.1-0.6); Absolute Neutrophils 12.3 10^3/uL (1.4-6.5); Hematocrit 39.9 % (37.0-47.0); Hemoglobin 13.3 g/dL (12.0-16.0); Mean Corp Hgb Conc. 33.3 g/dL (33.0-37.0); Mean Corpuscular Hgb 29.8 pg (27.0-31.0); Mean Corpuscular Volume 89.5 fL (81.0-99.0); Mean Platelet Volume 9.2 fL (7.4-10.4); Nucleated Red Blood Cells % 0 %; Platelet Count 529 10^3/uL (130-400); Red Blood Cell Count 4.46 10^6/uL (4.20-5.40); Red Cell Dist. Width 13.5 % (11.5-14.5); White Blood Cell Count 16.6 10^3/uL (4.8-10.8)
[2023-09-13 11:18] LABS: Blood Urea Nitrogen 30 mg/dl (7-17); Calcium 10.7 mg/dl (8.4-10.2); Carbon Dioxide 18 mmol/L (22-30); Chloride 108 mmol/L (98-107); Estimated Creatinine Clearance 54 ml/min; Glucose 116 mg/dl (70-99); Potassium 5.1 mmol/L (3.5-5.1); Sodium 135 mmol/L (135-145); eGFR 44.07
[2023-09-13 11:38] VITALS: BP 148/91; PULSE 84; O2SAT 98
[2023-09-13 12:49] VITALS: BP 177/94; PULSE 88; O2SAT 98
--- NOTE | 2023-09-13 14:00 | CM ---
Spoke with patient bedside.
Per patient she feels she is close to her baseline and would prefer home with VN.
Discussed VN options, patient would like [facility], [facility] to liaison.
Plan: home with VN when stable.
--- NOTE | 2023-09-13 14:04 | W.PN.ID1 ---
Date of Service
Date of Service: September 13, 2023
Today's Communication
Sign off.
Assessment / Plan
Complicated urinary tract infection
E. coli bacteremia
Leukocytosis
Hyponatremia
MARIS
Arachnoid cyst
Seizure disorder
Bipolar disease
Cerebral palsy with right arm weakness
Recommendations:
Patient S/P course of antibiotics and clinically stable.
Little more to offer from an Infectious Diseases standpoint.
Will see again at your request.
����������������������������������������������������������
Chief Complaint
-: Leukocytosis and UTI
Subjective / Review of Systems
Review of Systems: No Fever and No Chills
Vital Signs / Physical Exam
Vital Signs
Vital Signs
Temp Pulse Resp BP Pulse Ox
98.4 F 80 18 143/90 97
09/13/23 07:20 09/13/23 07:20 09/13/23 07:20 09/13/23 07:20 09/13/23 07:20
Physical Exam
Constitutional: No Acute Distress, Comfortable and Non-toxic
Eyes: Sclera Anicteric
Gastrointestinal: Non Distended
Skin: Negative Jaundice
Neurological: Awake, Alert and Oriented
Psychological: Calm
Objective Data
Lab Data
Lab Results
09/13/23 10:53
09/13/23 10:53
PT 15.6 Sec (11.4-14.6) H 09/02/23 15:23
INR 1.23 09/02/23 15:23
APTT 40.2 Sec (23.4-35.0) H 09/02/23 15:23
Estimated Creat Clear 54 ml/min 09/13/23 10:53
Lactic Acid Cancelled 09/04/23 06:00
Total Bilirubin 0.5 mg/dl (0.2-1.3) 09/04/23 03:35
AST 21 U/L (14-36) 09/04/23 03:35
ALT 14 U/L (0-35) 09/04/23 03:35
Alkaline Phosphatase 177 U/L (38-126) H 09/04/23 03:35
Most recent labs reviewed.
Micro Results:
09/03/23 15:40 Blood Culture - Final
Blood/Venous No Growth - Final Report
09/02/23 18:20 Blood Culture - Final
Blood/Venous Escherichia coli
Gram Stain - Final
09/02/23 18:19 Blood Culture - Final
Blood/Venous Escherichia coli
Gram Stain - Final
09/02/23 18:32 Urine Culture - Final
Urine Escherichia coli
Imaging:
09/03/2023 Renal ultrasound: No hydronephrosis noted. Kidneys of normal size and with mild medical renal disease. A 2.8 cm focus of rounded increased echogenicity is concerning for a possible mass. Contrast-enhanced MRI or CT is recommended.
Please see full dictation for additional detail.
[2023-09-13 15:15] VITALS: BP 164/81
--- NOTE | 2023-09-13 15:17 | W.PN.HOSP.TC ---
Today's Communication/Plan
-
continue desmopressin
monitor renal function/na/K
Assessment / Plan
Assessment / Plan
Impression:
Altered mental status-toxic metabolic encephalopathy
Seizures
[place] toxicity
Large left frontal arachnoid cyst
Acute kidney injury
Hyponatremia
Hypernatremia
Metabolic acidosis
Hyperglycemia
Aspiration pneumonia/urinary tract infection
E. coli bacteremia
Elevated alkaline phosphatase
Diabetes Insipidus
Hypertension
Hypercalcemia prob PHPT
Hyperkalemia
Conditions prior to presentation:
Cerebral palsy
Seizures
Probably CKD
Bipolar disorder
PLAN:
Na 135 K 5.1 cr 1.5 and Ca 10.7 today
Continue Lamictal, current home doses
Continue seizure precautions
Started on amiloride on 09/07 by nephrology and today started on desmopressin on 09/09 by nephrology as well.
Started on nifedipine 30 mg HS.
Calcium trended down to 10.7. Possible consideration of aredia use, defer to nephrology
S/P renal biopsy on 09/08 -result has been pending at this point
Plan for inpatient MRI renal evaluation of mass closer to d/c
Urology consult appreciated--> discussed with urology.
Appreciated nephrology consult and follow-up--> currently on hypotonic IV fluids.
Stopped sodium bicarbonate
[place] level trending down > 1.5 > 0.8 -patient has been started on Lamictal.
Urine sodium 10, urine osmolarity 138, serum osmolarity 273, TSH 1.8, cortisol 32
ID input appreciated and they feel leukocytosis rather related to lithium and antibiotics changed to oral Keflex. Oral Keflex to finish today per ID recommendations.
Initial blood cultures E. coli, repeated cultures no growth
Reviewed renal ultrasound results
Appreciate neurosurgery input--> neurosurgery already checked prior images and no change from before.
Appreciate psychiatry input-->Decrease venlafaxine to 75 mg daily
PT recommends acute rehab versus SNF
Rehab consulted on 09/05
Heparin SQ for DVT prophylaxis
CODE STATUS full code
Anticipated Discharge: Within 24 hours
Subjective/Interval History
-
Date of Service: September 13, 2023
No acute issues overnight
Objective Data
-
Labs:
Laboratory Results
09/13/23
10:53
WBC 16.6 H
Hgb 13.3
Hct 39.9
Plt Count 529 H
Sodium 135
Potassium 5.1
Chloride 108 H
Carbon Dioxide 18 L
BUN 30 H
Creatinine 1.5 H
Glucose 116 H
Calcium 10.7 H
Vital Signs:
Vital Signs
Temp Pulse Resp BP Pulse Ox
98.4 F 80 18 143/90 97
09/13/23 07:20 09/13/23 07:20 09/13/23 07:20 09/13/23 07:20 09/13/23 07:20
I&O
09/12/23 09/13/23 09/14/23
06:59 06:59 06:59
Intake Total 5500 / 5500 2780 / 2780
Output Total 76515 / 28019 3000 / 3000
Balance -5600 / -5600 -220 / -220
Review of Systems
-
Respiratory: Reports No Symptoms
Cardiac: Reports No Symptoms
Abdomen/GI: Reports No Symptoms
Physical Exam
-
General: Negative Appears in Distress
HEENT: Negative Oxygen
Respiratory: Clear to Auscultation
Cardiac: Regular Rhythm and S1/S2; Negative Murmur
GI: Soft, Nontender and Nondistended
Musculoskeletal: No Edema
Neuro: Awake, Alert and Oriented
Psych: Calm
--- NOTE | 2023-09-13 16:19 | VNURNOTE ---
Home Health Liaison met with patient at 1515 to discuss [facility] nurse/therapy, visits, schedule and homebound status. Patient is agreeable and understands that visits at home will be 2-3 x per week to assess and teach medical management.
[facility] brochure provided with contact information. Patient is aware that [facility] will contact her for start of care in 1-2 days after discharge from .
[facility] referral completed in [facility].
--- NOTE | 2023-09-13 16:31 | W.PN.NEPH.PH ---
Today's Communication / Plan
-
see plan
Assessment/Plan
-
IMP:
AMS/confusion
Hyponatremia
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
MARIS-cr was 1 in 09/2022
Mild hypercalcemia
[place] toxicity
Elevated ALP
leucocytosis
Giant arachnoid cyst of brain
SZ D/O
Bipolar
Cerebral palsy
GN bacteremia
Left renal mass 2.8cm
+MPO
Plan:
MARIS-s/p biopsy 09/08-prelim report shows AIN
she is off li since admit and transitioned to Lamictal
cr peak at 4.5 now stable at 1.5
no need of steroid course at this time
MPO is +ve but significance is unknown-would suggest rheum eval out pt
nephrogenic DI with U osmo 120 improving with DDAVP, off Amiloride
polyuria improved 10lit to 3lit/day
hypercalcemia from Li use, SHPTH-s/p Pamidronate 09/11-monitor levels
pt reports of drinking large amount of chocolate milk normally which she is aware to decrease intake
no FR at this time, sodium seem to be stabilized and off hypotonic fluids
She also has left renal mass which she needs MRI prior d/c
BP stable on Procardia
competed abx for E coli bacteremia from UTI
start po bicarb for met acidosis which will help with mild hyperkalemia too
d/w pt in detail
d/w nursing
voiding trial?
-
-
Date of Service: September 13, 2023
CC / HPI / ROS
-
Chief Complaint:
MARIS
Hyponatremia
[place] toxicity
History of Present Illness:
hemodynamically stable
Status post renal biopsy 09/09/2023
creatinine improving to 1.5
K better at 5.1
acidosis with bicarb stable
calcium up to 10.7
Na better at 135 with DDAVP, off hypotonic fluid overnight
Review of Systems:
non oliguric with johnson
no chest pain or sob
neurologically intact
Labs
-
Labs:
WBC 16.6 10^3/uL (4.8-10.8) H 09/13/23 10:53
RBC 4.46 10^6/uL (4.20-5.40) 09/13/23 10:53
Hgb 13.3 g/dL (12.0-16.0) 09/13/23 10:53
Hct 39.9 % (37.0-47.0) 09/13/23 10:53
Plt Count 529 10^3/uL (130-400) H 09/13/23 10:53
Sodium 135 mmol/L (135-145) 09/13/23 10:53
Potassium 5.1 mmol/L (3.5-5.1) 09/13/23 10:53
Chloride 108 mmol/L (98-107) H 09/13/23 10:53
Carbon Dioxide 18 mmol/L (22-30) L 09/13/23 10:53
BUN 30 mg/dl (7-17) H 09/13/23 10:53
Creatinine 1.5 mg/dL (0.6-1.0) H 09/13/23 10:53
eGFR 44.07 09/13/23 10:53
Glucose 116 mg/dl (70-99) H 09/13/23 10:53
Calcium 10.7 mg/dl (8.4-10.2) H 09/13/23 10:53
Phosphorus 6.2 mg/dl (2.5-4.5) H 09/12/23 15:49
Albumin 4.1 g/dl (3.5-5.0) 09/12/23 15:49
Physical Exam
-
Vital Signs:
Vital Signs
Temp Pulse Resp BP Pulse Ox
97.3 F 93 18 164/81 96
09/13/23 15:15 09/13/23 15:15 09/13/23 15:15 09/13/23 15:15 09/13/23 15:15
Cardiovascular:: Regular rate and rhythm
Respiratory:: Bilateral: CTA
Lung Excursion:: Normal
Abdomen:: Nontender and Soft
Extremity Edema:: None: Bilateral:
Johnson Catheter: No
[2023-09-13] MEDS: PROCARDIA XL (EXTENDED RELEASE) 30 MG PO (17:25)
[2023-09-13] MEDS: SODIUM BICARBONATE 650 MG PO (19:41)
[2023-09-13 23:28] VITALS: BP 131/77
[2023-09-14 06:00] VITALS: BMI 33.3
--- NOTE | 2023-09-14 08:21 | W.PN.HOSP.TC ---
Today's Communication/Plan
-
see note
Assessment / Plan
Assessment / Plan
Impression:
Altered mental status-toxic metabolic encephalopathy
Seizures
[place] toxicity
Large left frontal arachnoid cyst
Acute kidney injury
Hyponatremia
Hypernatremia
Metabolic acidosis
Hyperglycemia
Aspiration pneumonia/urinary tract infection
E. coli bacteremia
Elevated alkaline phosphatase
Diabetes Insipidus
Hypertension
Hypercalcemia prob PHPT
Hyperkalemia
Conditions prior to presentation:
Cerebral palsy
Seizures
Probably CKD
Bipolar disorder
PLAN:
Continue Lamictal, current home doses
Continue seizure precautions
Started on amiloride on 09/07 by nephrology and started on desmopressin on 09/09 by nephrology as well. Amiloride has been stopped.
Got one dose of pamidronate for hypercalcemia. f/u levels.
S/P renal biopsy on 09/08 - prelim report of AIN - clinically suspected from lithium toxicity
Urology consult appreciated--> discussed with urology.
Reviewed renal ultrasound results
Appreciated nephrology help.
Stopped sodium bicarbonate
[place] level trending down > 1.5 > 0.8 -patient has been started on Lamictal.
Urine sodium 10, urine osmolarity 138, serum osmolarity 273, TSH 1.8, cortisol 32
ID input appreciated and they feel leukocytosis rather related to lithium and antibiotics changed to oral Keflex. Oral Keflex course finished per ID recommendations.
Initial blood cultures E. coli, repeated cultures no growth
Appreciate neurosurgery input--> neurosurgery already checked prior images and no change from before.
Appreciate psychiatry input-->Decrease venlafaxine to 75 mg daily
PT recommends acute rehab versus SNF
Rehab consulted on 09/05
Repeat BMP pending today, f/u electrolyte level
MRI abd w/wo contrast ordered to better differentiate the left kidney mass
Will do voiding trial. bladder scan ordered.
Heparin SQ for DVT prophylaxis
CODE STATUS full code
Anticipated Discharge: Within 24 hours
Subjective/Interval History
-
Date of Service: September 14, 2023
sitting comfortably in bed
no acute issues overnight
Objective Data
-
Labs:
Laboratory Results
09/14/23
08:13
Sodium Pending
Potassium Pending
Chloride Pending
Carbon Dioxide Pending
BUN Pending
Creatinine Pending
Glucose Pending
Calcium Pending
Vital Signs:
Vital Signs
Temp Pulse Resp BP Pulse Ox
98.7 F 106 18 131/77 97
09/13/23 23:28 09/13/23 23:28 09/13/23 23:28 09/13/23 23:28 09/13/23 23:28
I&O
09/13/23 09/14/23 09/15/23
06:59 06:59 06:59
Intake Total 2780 / 2780 600 / 840 240 / 240
Output Total 3000 / 3000 6550 / 6550
Balance -220 / -220 -5950 / -5710 240 / 240
Review of Systems
-
Respiratory: Reports No Symptoms
Cardiac: Reports No Symptoms
Abdomen/GI: Reports No Symptoms
Physical Exam
-
General: Negative Appears in Distress
HEENT: Negative Oxygen
Respiratory: Clear to Auscultation
Cardiac: Regular Rhythm and S1/S2; Negative Murmur
GI: Soft, Nontender and Nondistended
Musculoskeletal: No Edema
Neuro: Awake, Alert and Oriented
Psych: Calm
[2023-09-14 08:23] VITALS: BP 139/78
[2023-09-14] MEDS: DDAVP 0.149999999999999994 MG PO (09:30)
[2023-09-14] MEDS: SODIUM BICARBONATE 650 MG PO ×2 (09:31→21:23)
[2023-09-14] MEDS: EFFEXOR XR 75 MG PO (09:31)
[2023-09-14] MEDS: LAMICTAL 200 MG PO ×2 (09:31→19:46)
[2023-09-14] MEDS: HEPARIN 5000 UNITS SC ×2 (09:31→19:46)
--- NOTE | 2023-09-14 09:49 | W.PN.REHAB ---
Today's Communication / Plan
-
If patient further desires for inpatient rehab prior to discharge home, please alert us and we will re-evaluate. Still needs to get MRI abdomen for evaluation of renal mass before discharge.
Assessment/Function
-
Assessment:
General:alert and oriented. Answers questions appropriately and follows commands. No difficulty with vision
Extremities: RUE mild limb deficiency, slight tone. No tremor but has apraxia. No tenderness in UE or LE. No LE edema, normal pulses
Neuro: No clonus, mild increased tone in RUE. No contracture
Function:
Transfers: Supervision
Ambulation: Supervision to contact guard
Steps: Supervision to contact guard
Plan
-
Assessment:
43 year old female with CP admitted with metabolic encephalopathy, MARIS, lithium toxicity UTI
PM&R PT/OT to increase independence with ADLs, improve balance, coordination, endurance, strength, mobility, community reintegration, decreased burden of care on others and family education. Coordination and mobility dysfunction likely due to
lithium toxicity, but improving
Right hemiparesis: Chronic with CP.
Seizures: Continue Lamictal- monitor seizures, seizure precautions
UTI/leukocytosis - On keflex. Still with increased WBC's but ID feels related to lithium toxicity
MARIS: Renal biopsy showed AIN - Cr improving.
Hyponatremia/Hypercalcemia - Improving
Renal Mass - Nephrology following - reportedly planned for MRI of abdomen to evaluate further.
Large left frontal arachnoid cyst - Reportedly chronic and stable - neurosurgery was consulted, but nothing to do.
Psych: Psychology consult. On venlafaxine. Monitor mood, adjust medications as needed.
Skin: monitor for pressure sores/rashes/lesions.
Pain: acetaminophen as needed.
GI prophylaxis - Pepcid
DVT Prophylaxis: Hep SQ
Pulmonary: Incentive spirometry
Safety: Continue to reinforce assistance with all transfers.
Code Status: Full code
Dispo: Patient wants to go home and not go to acute rehab. Still has some occasional assistance required and supervision with mobility - she states that her is able to assist at home and will need home RN, PT, OT. She could still benefit
from further rehab prior to discharge home and still could use acute rehab to get to independent level of mobility for safety. But patient does not want to pursue inpatient rehabilitation at this time.
Subjective
-
Date of Service: September 14, 2023
Patient seen and examined in rehab follow up this morning. A little sore today after therapy and walking and stairs yesterday. Denies any numbness or tingling. no other new issues
Vital Signs / Labs
-
Vital Signs and Labs:
Temp Pulse Resp BP Pulse Ox
98.7 F 87 18 139/78 95
09/14/23 08:23 09/14/23 08:23 09/14/23 08:23 09/14/23 08:23 09/14/23 08:23
09/13/23 10:53
09/13/23
10:53
WBC 16.6 H
Plt Count 529 H
Abs Immat Gran (auto) 0.2 H
Absolute Neuts (auto) 12.3 H
Absolute Monos (auto) 0.8 H
Immature Gran % 1.1 H
Lymphocytes % 17.8 L
Chloride 108 H
Carbon Dioxide 18 L
BUN 30 H
Creatinine 1.5 H
Glucose 116 H
Calcium 10.7 H
--- NOTE | 2023-09-14 11:04 | W.PN.UPDATE ---
Update Note
Progress Note Update
Patient seen at bedside, chart reviewed, discussed with staff. Ms. Queen reports doing well this AM. She tells me this is the most 'stable mentally' she has felt in years. Continues to express that she wishes someone would have stopped the Lithoum
a long time ago. Nephrology following. She is due for an MRI today or tomorrow she tells me. Continues to improve medically.
Impression/Plan: Bipolar disorder, stable - [place] stopped due to toxicity, Effexor dose lowered to 75mg with reported tolerability and no side effects to report; On Lamictal for reported seizures which may also offer mood stabilization in
bipolar.
--- NOTE | 2023-09-14 12:28 | CM ---
CM reviewed chart, plan for MRI abdomen. Patient plan discharge home with [facility], not interested in acute rehab at this time. CM will continue to follow for discharge planning needs.
Plan; home with [facility].
[2023-09-14 12:48] LABS: Blood Urea Nitrogen 26 mg/dl (7-17); Carbon Dioxide 16 mmol/L (22-30); Chloride 106 mmol/L (98-107); Estimated Creatinine Clearance 45 ml/min; Glucose 119 mg/dl (70-99); Potassium 4.8 mmol/L (3.5-5.1); Sodium 140 mmol/L (135-145); eGFR 35.41
[2023-09-14] MEDS: PEPCID 20 MG PO (13:22)
[2023-09-14] MEDS: PROCARDIA XL (EXTENDED RELEASE) 30 MG PO (17:14)
--- NOTE | 2023-09-14 18:03 | W.PN.NEPH.PH ---
Addendum entered and electronically signed by Dory Charles MD 09/14/23 18:12:
will plan bicarb iVF 1lit today
Original Note:
Today's Communication / Plan
-
see plan
Assessment/Plan
-
IMP:
AMS/confusion
Hyponatremia
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
MARIS-cr was 1 in 09/2022
Mild hypercalcemia
[place] toxicity
Elevated ALP
leucocytosis
Giant arachnoid cyst of brain
SZ D/O
Bipolar
Cerebral palsy
GN bacteremia
Left renal mass 2.8cm
+MPO
Plan:
MARIS-s/p biopsy 09/08-prelim report shows AIN, with mild necrotic areas
she is off li since admit and transitioned to Lamictal
cr peak at 4.5 now stable at 1.5 but up at 1.8 today possible vol depletion from polyuria
no need of steroid course at this time
if cr increases further may benefit from rheum eval since she was +MPO
nephrogenic DI with U osmo 120 cont DDAVP, off Amiloride
polyuria still, adjust dose 0.25bid
hypercalcemia from Li use, SHPTH-s/p Pamidronate 09/11-monitor levels still high at 11
suspect hypercalcemia also causing some DI too
no FR at this time, sodium seem to be stabilized and off hypotonic fluids
She also has left renal mass, MRI no concerning mass
BP stable on Procardia
competed abx for E coli bacteremia from UTI
increase po bicarb for met acidosis
d/w pt in detail
-
-
Date of Service: September 14, 2023
CC / HPI / ROS
-
Chief Complaint:
MARIS
Hyponatremia
[place] toxicity
History of Present Illness:
hemodynamically stable
Status post renal biopsy 09/09/2023
creatinine up at 1.8
K better at below 5
acidosis with bicarb 16
calcium up to 11
Na better at 140 with DDAVP, polyuria 6lit so far
Review of Systems:
no chest pain or sob
neurologically intact
Labs
-
Labs:
WBC 16.6 10^3/uL (4.8-10.8) H 09/13/23 10:53
RBC 4.46 10^6/uL (4.20-5.40) 09/13/23 10:53
Hgb 13.3 g/dL (12.0-16.0) 09/13/23 10:53
Hct 39.9 % (37.0-47.0) 09/13/23 10:53
Plt Count 529 10^3/uL (130-400) H 09/13/23 10:53
Sodium 140 mmol/L (135-145) 09/14/23 09:04
Potassium 4.8 mmol/L (3.5-5.1) 09/14/23 09:04
Chloride 106 mmol/L (98-107) 09/14/23 09:04
Carbon Dioxide 16 mmol/L (22-30) L 09/14/23 09:04
BUN 26 mg/dl (7-17) H 09/14/23 09:04
Creatinine 1.8 mg/dL (0.6-1.0) H 09/14/23 09:04
eGFR 35.41 09/14/23 09:04
Glucose 119 mg/dl (70-99) H 09/14/23 09:04
Calcium 11.0 mg/dl (8.4-10.2) H 09/14/23 09:04
Phosphorus 6.2 mg/dl (2.5-4.5) H 09/12/23 15:49
Albumin 4.1 g/dl (3.5-5.0) 09/12/23 15:49
Physical Exam
-
Vital Signs:
Vital Signs
Temp Pulse Resp BP Pulse Ox
98.7 F 87 18 139/78 95
09/14/23 08:23 09/14/23 08:23 09/14/23 08:23 09/14/23 08:23 09/14/23 08:23
Cardiovascular:: Regular rate and rhythm
Respiratory:: Bilateral: CTA
Lung Excursion:: Normal
Abdomen:: Nontender and Soft
Extremity Edema:: None: Bilateral:
Carrero Catheter: Yes
[2023-09-14] MEDS: SODIUM BICARBONATE 1075 MEQ IV (19:45)
[2023-09-14] MEDS: DDAVP 0.25 MG PO (19:46)
[2023-09-14 23:20] VITALS: BP 130/84
[2023-09-15 05:18] VITALS: BMI 33.5
[2023-09-15 06:30] VITALS: BMI 33.8
[2023-09-15 07:30] VITALS: BP 153/96
[2023-09-15 08:49] LABS: Blood Urea Nitrogen 25 mg/dl (7-17); Calcium 9.9 mg/dl (8.4-10.2); Carbon Dioxide 26 mmol/L (22-30); Chloride 106 mmol/L (98-107); Estimated Creatinine Clearance 48 ml/min; Glucose 88 mg/dl (70-99); Potassium 4.7 mmol/L (3.5-5.1); Sodium 142 mmol/L (135-145); eGFR 37.92
[2023-09-15] MEDS: DDAVP 0.25 MG PO ×2 (09:12→21:03)
[2023-09-15] MEDS: SODIUM BICARBONATE 650 MG PO ×3 (09:13→21:02)
[2023-09-15] MEDS: LAMICTAL 200 MG PO ×2 (09:13→21:05)
[2023-09-15] MEDS: EFFEXOR XR 75 MG PO (09:13)
[2023-09-15] MEDS: HEPARIN 5000 UNITS SC ×2 (09:14→21:06)
[2023-09-15 11:49] VITALS: BP 155/95; PULSE 88; O2SAT 98
--- NOTE | 2023-09-15 13:48 | W.PN.HOSP.TC ---
Today's Communication/Plan
-
await nephro input
f/u BMP
Assessment / Plan
Assessment / Plan
Impression:
Altered mental status-toxic metabolic encephalopathy
Seizures
[place] toxicity
Large left frontal arachnoid cyst
Acute kidney injury
Hyponatremia
Hypernatremia
Metabolic acidosis
Hyperglycemia
Aspiration pneumonia/urinary tract infection
E. coli bacteremia
Elevated alkaline phosphatase
Diabetes Insipidus
Hypertension
Hypercalcemia prob PHPT
Hyperkalemia
Conditions prior to presentation:
Cerebral palsy
Seizures
Probably CKD
Bipolar disorder
PLAN:
Continue Lamictal, current home doses
Continue seizure precautions
Started on amiloride on 09/07 by nephrology and started on desmopressin on 09/09 by nephrology as well. Amiloride has been stopped.
Got one dose of pamidronate for hypercalcemia. f/u levels.
S/P renal biopsy on 09/08 - prelim report of AIN - clinically suspected from lithium toxicity
MRI abdomen ruled out any renal cancer
Urology consult appreciated--> discussed with urology.
Reviewed renal ultrasound results
Appreciated nephrology help.
Stopped sodium bicarbonate
[place] level trending down > 1.5 > 0.8 -patient has been started on Lamictal.
Urine sodium 10, urine osmolarity 138, serum osmolarity 273, TSH 1.8, cortisol 32
ID input appreciated and they feel leukocytosis rather related to lithium and antibiotics changed to oral Keflex. Oral Keflex course finished per ID recommendations.
Initial blood cultures E. coli, repeated cultures no growth
Appreciate neurosurgery input--> neurosurgery already checked prior images and no change from before.
Appreciate psychiatry input-->Decrease venlafaxine to 75 mg daily
PT recommends acute rehab versus SNF
Rehab consulted on 09/05
BMP showing uptrending sodium 142. Creatinine down again 1.7. Fluid balance of -840 mL
Await nephrology evaluation today
Heparin SQ for DVT prophylaxis
CODE STATUS full code
Anticipated Discharge: Within 24 hours
Subjective/Interval History
-
Date of Service: September 15, 2023
Resting comfortably in bed
No acute issues overnight
Objective Data
-
Labs:
Laboratory Results
09/15/23
07:31
Sodium 142
Potassium 4.7
Chloride 106
Carbon Dioxide 26
BUN 25 H
Creatinine 1.7 H
Glucose 88
Calcium 9.9
Vital Signs:
Vital Signs
Temp Pulse Resp BP Pulse Ox
98.8 F 80 18 153/96 97
09/15/23 07:30 09/15/23 07:30 09/15/23 07:30 09/15/23 07:30 09/15/23 08:00
I&O
09/14/23 09/15/23 09/16/23
06:59 06:59 06:59
Intake Total 600 / 840 3300 / 3300
Output Total 6550 / 6550 2800 / 3900 1100 / 1100
Balance -5950 / -5710 500 / -600 -1100 / -1100
Review of Systems
-
Respiratory: Reports No Symptoms
Cardiac: Reports No Symptoms
Abdomen/GI: Reports No Symptoms
Physical Exam
-
General: Negative Appears in Distress
HEENT: Negative Oxygen
Respiratory: Clear to Auscultation
Cardiac: Regular Rhythm and S1/S2; Negative Murmur
GI: Soft, Nontender and Nondistended
Musculoskeletal: No Edema
Neuro: Awake, Alert and Oriented
Psych: Calm
--- NOTE | 2023-09-15 14:13 | W.PN.UPDATE ---
Update Note
Progress Note Update
patient seen chart reviewed. mrs mcnair reported to me as she did to ms nassar yesterday that she feels better now than she has in a very long time. she does not feel anxious or particularly depressed at this point although she is eager to get
out of the hospital. she said she has been told that at present her kidneys are improving and hopefully w cessation of the lithium they will remain stable for some time. she feels psych medication dosing is good for her as is. she is hopeful she
will be dc tonight or tomorrow. i did asked [facility] to call her to set up out pt psych and she said they did but as she was unsure when she would be dc she did not return the call. gave her the number again and my number in case she has provlems
scheduling. will check back in tomorrow if she is still here. would continue lamictal 200 mg bid and effexor xr 75 mg at this point until she sees her next psych presriber.
[2023-09-15 15:15] VITALS: BP 151/89
[2023-09-15 15:46] VITALS: BP 161/95
--- NOTE | 2023-09-15 16:58 | W.PN.NEPH.PH ---
Today's Communication / Plan
-
Repeat urine osmolarity and urine sodium pending
Creatinine down to 1.7 but remains polyuric of around 3 L
Maintain DDAVP
Encourage p.o. fluid intake
Assessment/Plan
-
IMP:
AMS/confusion
Hyponatremia
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
MARIS-cr was 1 in 09/2022
Mild hypercalcemia
[place] toxicity
Elevated ALP
leucocytosis
Giant arachnoid cyst of brain
SZ D/O
Bipolar
Cerebral palsy
GN bacteremia
Left renal mass 2.8cm
+MPO
Plan:
MARIS-s/p biopsy 09/08-prelim report shows AIN, with mild necrotic areas
she is off li since admit and transitioned to Lamictal
cr peak at 4.5 now stable at 1.5 but up at 1.7 today possible vol depletion from polyuria
no need of steroid course at this time
if cr increases further may benefit from rheum eval since she was +MPO
nephrogenic DI with U osmo 120 continue DDAVP, off Amiloride
polyuria still, adjust dose 0.25bid
hypercalcemia from Li use, SHPTH-s/p Pamidronate 09/11-monitor levels still high at 11
suspect hypercalcemia also causing some DI too
no FR at this time, sodium seem to be stabilized and off hypotonic fluids
She also has left renal mass, MRI no concerning mass
BP stable on Procardia
competed abx for E coli bacteremia from UTI
increased po bicarb for met acidosis
d/w pt in detail
-
-
Date of Service: September 15, 2023
CC / HPI / ROS
-
Chief Complaint:
MARIS
Hyponatremia
[place] toxicity
History of Present Illness:
hemodynamically stable
Status post renal biopsy 09/09/2023
creatinine at 1.7
K better at below 5
acidosis improved with bicarb 26
calcium down to 9.9.
Na better at 142 with DDAVP, polyuria 3lit so far
Review of Systems:
no chest pain or sob
neurologically intact
Polyuric
Labs
-
Labs:
WBC 16.6 10^3/uL (4.8-10.8) H 09/13/23 10:53
RBC 4.46 10^6/uL (4.20-5.40) 09/13/23 10:53
Hgb 13.3 g/dL (12.0-16.0) 09/13/23 10:53
Hct 39.9 % (37.0-47.0) 09/13/23 10:53
Plt Count 529 10^3/uL (130-400) H 09/13/23 10:53
Sodium 142 mmol/L (135-145) 09/15/23 07:31
Potassium 4.7 mmol/L (3.5-5.1) 09/15/23 07:31
Chloride 106 mmol/L (98-107) 09/15/23 07:31
Carbon Dioxide 26 mmol/L (22-30) 09/15/23 07:31
BUN 25 mg/dl (7-17) H 09/15/23 07:31
Creatinine 1.7 mg/dL (0.6-1.0) H 09/15/23 07:31
eGFR 37.92 09/15/23 07:31
Glucose 88 mg/dl (70-99) 09/15/23 07:31
Calcium 9.9 mg/dl (8.4-10.2) 09/15/23 07:31
Phosphorus 6.2 mg/dl (2.5-4.5) H 09/12/23 15:49
Albumin 4.1 g/dl (3.5-5.0) 09/12/23 15:49
Physical Exam
-
Vital Signs:
Vital Signs
Temp Pulse Resp BP Pulse Ox
98.2 F 80 18 161/95 97
09/15/23 15:46 09/15/23 15:46 09/15/23 15:15 09/15/23 15:46 09/15/23 15:46
Cardiovascular:: Regular rate and rhythm
Respiratory:: Bilateral: CTA
Lung Excursion:: Normal
Abdomen:: Nontender and Soft
Bowel Sounds:: Normal
Extremity Edema:: None: Bilateral:
[2023-09-15] MEDS: PROCARDIA XL (EXTENDED RELEASE) 30 MG PO (17:00)
[2023-09-15 23:00] VITALS: BP 165/62
[2023-09-16 05:37] VITALS: BMI 33.1
[2023-09-16 07:52] LABS: Chloride 109 mmol/L (98-107); Potassium 4.7 mmol/L (3.5-5.1); Sodium 144 mmol/L (135-145)
[2023-09-16 08:00] VITALS: BP 173/100
[2023-09-16] MEDS: SODIUM BICARBONATE 650 MG PO ×2 (08:00→15:30)
[2023-09-16] MEDS: HEPARIN 5000 UNITS SC (08:00)
[2023-09-16] MEDS: EFFEXOR XR 75 MG PO (08:00)
[2023-09-16] MEDS: DDAVP 0.25 MG PO (08:00)
[2023-09-16] MEDS: LAMICTAL 200 MG PO (08:00)
[2023-09-16 08:01] LABS: Blood Urea Nitrogen 21 mg/dl (7-17); Calcium 9.6 mg/dl (8.4-10.2); Carbon Dioxide 23 mmol/L (22-30); Estimated Creatinine Clearance 50 ml/min; Glucose 95 mg/dl (70-99); eGFR 40.78
--- NOTE | 2023-09-16 10:58 | CM ---
Addendum entered by Tracey Barrios 09/16/23 11:31:
Patient for d/c home today with [facility].
IMM completed.
Spouse to transport home.
Plan: home with [facility]
Original Note:
Asked to check DDAVP costs.
DDAVP 0.25 mg q 12 hours.
Patient uses [facility].
Per Pharmacist 0.25 mg not available, they can only get 0.1 or 0.2 mg.
Will need to order and will be available in 24 hours.
Cost for 60 tabs will be $62 per month.
MD updated.
--- NOTE | 2023-09-16 11:43 | W.PN.UPDATE ---
Update Note
Progress Note Update
patient is doing well at this point psychiatrically she is for dc later today. would continue w current medications as they are . she has my phone number if she has trouble scheduling at [facility].
[2023-09-16 12:00] VITALS: BP 117/69
[2023-09-16] MEDS: PROCARDIA XL (EXTENDED RELEASE) 30 MG PO (12:00)
--- NOTE | 2023-09-16 14:04 | W.PN.HOSP.TC ---
Today's Communication/Plan
-
d/c home
Assessment / Plan
Assessment / Plan
Impression:
Altered mental status-toxic metabolic encephalopathy
Seizures
[place] toxicity
Large left frontal arachnoid cyst
Acute kidney injury
Hyponatremia
Hypernatremia
Metabolic acidosis
Hyperglycemia
Aspiration pneumonia/urinary tract infection
E. coli bacteremia
Elevated alkaline phosphatase
Diabetes Insipidus
Hypertension
Hypercalcemia prob PHPT
Hyperkalemia
Conditions prior to presentation:
Cerebral palsy
Seizures
Probably CKD
Bipolar disorder
PLAN:
Continue Lamictal, current home doses
Continue seizure precautions
Started on amiloride on 09/07 by nephrology and started on desmopressin on 09/09 by nephrology as well. Amiloride has been stopped.
Got one dose of pamidronate for hypercalcemia. f/u levels.
S/P renal biopsy on 09/08 - prelim report of AIN - clinically suspected from lithium toxicity
MRI abdomen ruled out any renal cancer
Urology consult appreciated--> discussed with urology.
Reviewed renal ultrasound results
Appreciated nephrology help.
Stopped sodium bicarbonate
[place] level trending down > 1.5 > 0.8 -patient has been started on Lamictal.
Urine sodium 10, urine osmolarity 138, serum osmolarity 273, TSH 1.8, cortisol 32
ID input appreciated and they feel leukocytosis rather related to lithium and antibiotics changed to oral Keflex. Oral Keflex course finished per ID recommendations.
Initial blood cultures E. coli, repeated cultures no growth
Appreciate neurosurgery input--> neurosurgery already checked prior images and no change from before.
Appreciate psychiatry input-->Decrease venlafaxine to 75 mg daily
PT recommends acute rehab versus SNF
Rehab consulted on 09/05
Creatinine 1.6. Sodium 144 today. Discussed with nephrology patient advised to have increased water intake.
Heparin SQ for DVT prophylaxis
CODE STATUS full code
More than 30 minutes spent in discharge including
Final examination of the patient
Summarizing hospital stay
Instructions for continuing care to all relevant caregivers
Preparation of discharge records, prescriptions, and referral forms
Total time spent (in minutes): 38 mins
Anticipated Discharge: Today
Subjective/Interval History
-
Date of Service: September 16, 2023
No complaints overnight
Objective Data
-
Labs:
Laboratory Results
09/16/23
06:45
Sodium 144
Potassium 4.7
Chloride 109 H
Carbon Dioxide 23
BUN 21 H
Creatinine 1.6 H
Glucose 95
Calcium 9.6
Vital Signs:
Vital Signs
Temp Pulse Resp BP Pulse Ox
98.6 F 79 18 117/69 98
09/16/23 12:00 09/16/23 12:00 09/16/23 12:00 09/16/23 12:00 09/16/23 12:00
I&O
09/15/23 09/16/23 09/17/23
06:59 06:59 06:59
Intake Total 3300 / 3300 1560 / 1560
Output Total 2800 / 3900 1700 / 1700
Balance 500 / -600 -140 / -140
Review of Systems
-
Respiratory: Reports No Symptoms
Cardiac: Reports No Symptoms
Abdomen/GI: Reports No Symptoms
Physical Exam
-
General: Negative Appears in Distress
HEENT: Negative Oxygen
Respiratory: Clear to Auscultation
Cardiac: Regular Rhythm and S1/S2; Negative Murmur
GI: Soft, Nontender and Nondistended
Musculoskeletal: No Edema
Neuro: Awake, Alert and Oriented
Psych: Calm
--- NOTE | 2023-09-16 15:29 | W.PN.NEPH.PH ---
Today's Communication / Plan
-
Stable for discharge
Follow-up BMP sent to our office
Assessment/Plan
-
IMP:
AMS/confusion
Hyponatremia
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
MARIS-cr was 1 in 09/2022
Mild hypercalcemia
[place] toxicity
Elevated ALP
leucocytosis
Giant arachnoid cyst of brain
SZ D/O
Bipolar
Cerebral palsy
GN bacteremia
Left renal mass 2.8cm
+MPO
Plan:
MARIS-s/p biopsy 09/08-prelim report shows AIN, with mild necrotic areas
she is off lithium since admit and transitioned to Lamictal
cr peak at 4.5 now stable at 1.6
nephrogenic DI with U osmo 120 continue max DDAVP .2 BID, off Amiloride
Instructed to maintain increased fluid intake at discharge today
hypercalcemia from Li use, SHPTH-s/p Pamidronate 09/11-now normalized
She also has left renal mass, MRI no concerning mass
BP stable on Procardia
competed abx for E coli bacteremia from UTI
increased po bicarb for met acidosis
Patient will be discharged today with follow-up BMP sent to our office next week
We will follow-up with patient in our office in a few weeks time
-
-
Date of Service: September 16, 2023
CC / HPI / ROS
-
Chief Complaint:
MARIS
Hyponatremia
[place] toxicity
History of Present Illness:
hemodynamically stable
Status post renal biopsy 09/09/2023
creatinine at 1.6
K better at below 5
acidosis improved with bicarb 21
calcium down to 9.6.
Na better at 144 with DDAVP, polyuria
Review of Systems:
no chest pain or sob
neurologically intact
Polyuric
Labs
-
Labs:
WBC 16.6 10^3/uL (4.8-10.8) H 09/13/23 10:53
RBC 4.46 10^6/uL (4.20-5.40) 09/13/23 10:53
Hgb 13.3 g/dL (12.0-16.0) 09/13/23 10:53
Hct 39.9 % (37.0-47.0) 09/13/23 10:53
Plt Count 529 10^3/uL (130-400) H 09/13/23 10:53
Sodium 144 mmol/L (135-145) 09/16/23 06:45
Potassium 4.7 mmol/L (3.5-5.1) 09/16/23 06:45
Chloride 109 mmol/L (98-107) H 09/16/23 06:45
Carbon Dioxide 23 mmol/L (22-30) 09/16/23 06:45
BUN 21 mg/dl (7-17) H 09/16/23 06:45
Creatinine 1.6 mg/dL (0.6-1.0) H 09/16/23 06:45
eGFR 40.78 09/16/23 06:45
Glucose 95 mg/dl (70-99) 09/16/23 06:45
Calcium 9.6 mg/dl (8.4-10.2) 09/16/23 06:45
Phosphorus 6.2 mg/dl (2.5-4.5) H 09/12/23 15:49
Albumin 4.1 g/dl (3.5-5.0) 09/12/23 15:49
Physical Exam
-
Vital Signs:
Vital Signs
Temp Pulse Resp BP Pulse Ox
98.6 F 79 18 117/69 98
09/16/23 12:00 09/16/23 12:00 09/16/23 12:00 09/16/23 12:00 09/16/23 12:00
Cardiovascular:: Regular rate and rhythm
Respiratory:: Bilateral: CTA
Lung Excursion:: Normal
Abdomen:: Nontender and Soft
Bowel Sounds:: Normal
Extremity Edema:: None: Bilateral:
Carrero Catheter: No
[2023-09-16] MEDS: PEPCID 20 MG PO (15:30)
[2023-09-16 16:00] VITALS: BP 118/72
--- NOTE | 2023-09-17 07:30 | W.DCSUMMARY ---
Discharge Summary
Discharge Data
Date of Admission: 09/02/23
Date of Discharge: 09/16/23
-
Pending Results: No
Hospital Course
Discharging Physician : Dr Benny Montaño
Disposition : Home with Home care
Primary care physician : Dr Joseph Burleson
Principal Discharge diagnosis :
Acute toxic metabolic encephalopathy
[place] toxicity
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
Diabetes insipidus
Hyponatremia
Hypernatremia
Hypokalemia
Hypercalcemia
Escherichia coli bacteremia and urinary tract infection
Arachnoid cyst
Chronic Discharge diagnosis :
Cerebral palsy
History of seizure
Bipolar disorder
Hospital Course :
Patient is a 43-year-old female with above-mentioned past medical history came to ER with new onset of intermittent headache confusion and tremors. There was question of patient possibly having seizure at some point by family member although no
clear clinical episode on history gathering. Laboratory evaluation in ER showing patient having multiple metabolic derangements/renal failure and elevated lithium level.
Acute toxic metabolic encephalopathy -this was felt to be related to multiple metabolic derangements of hyponatremia/lithium toxicity/E. coli UTI and bacteremia. Patient mentation normalized and at baseline patient coherent and communicating at
discharge.
[place] toxicity -patient admission lithium level of 1.9. Patient had associated renal dysfunction/hyponatremia and later hypernatremia from diabetes insipidus. Patient was taken off of lithium therapy and with IV hydration over next few days
patient lithium function normalized. Psychiatry evaluated patient and after discussion it was decided not to resume back patient on lithium moving forward. Patient symptoms were completely controlled with Lamictal therapy only. Patient did not
have any behavioral problems remained pleasant and cooperative throughout hospital stay.
Acute kidney injury, left renal mass -patient had significant renal injury/failure at admission was felt to be prerenal in nature. With IV hydration patient renal function improved. Patient still have persistent residual renal dysfunction
nephrology recommended renal biopsy. 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 Steroid therapy did not require this patient renal function had improved significantly. Renal ultrasound showing
hyperechoic lesion in kidneys and a follow-up MRI ruled out any renal cancer. Urology evaluated patient as well for this part.
Diabetes insipidus/hyponatremia/hypernatremia -initially patient had hyponatremia which improved after improvement of renal function and later patient started to developing polyuria after improvement of MARIS. Patient was having significant
hyponatremia and required to be given hypotonic IV fluid. Patient was started on amiloride therapy as concern of diabetes insipidus from lithium toxicity. Later on patient was also started on desmopressin. After improvement and stabilization of
sodium level patient was maintained on desmopressin therapy. Patient educated on need of increased oral intake as still have significant urine loss. Patient provided a follow-up prescription for repeat blood work within 1 week and follow-up with
nephrology in office. Of note patient is also found to having antimyeloperoxidase antibody of unclear significance. Patient will require follow-up with rheumatology if any other clinical signs of vasculitis developed.
E. coli bacteremia and urinary tract infection -patient had significant leukocytosis on initial ER labs. Further workup showing patient likely have urinary tract infection and was started on broad-spectrum antibiotic. Patient urine culture grew
E. coli and later blood culture also grew E. coli. ID was following along and patient finished course of antibiotic therapy in hospital.
Hypercalcemia -patient noted to be hypercalcemic and have elevated PTH level. This was related to lithium toxicity and secondary hyperparathyroidism. Patient required dose of pamidronate which with patient calcium level normalized.
Arachnoid cyst - Patient have left arachnoid cyst on CT head. This is old findings and compared with previous images. Neurosurgery evaluated patient and no further management required.
Important imaging findings :
None
Procedure findings :
None
Discharge Plan
-
Patient Disposition: Home with Home Care
Discharge Diagnosis/Procedures: [place] toxicity, Confusion, Diabetes insipidus, Hypernatremia, Hypercalcemia, Acute kidney injury
Condition: Fair
Diet: Regular and Other diet
Additional Diets: Please drink at least 3L of water every day
Activity: As tolerated
Driving Restrictions: No driving
Bathing Restrictions: OK to Shower
Blood Work: BMP on wednesday
Referrals:
Joseph Burleson MD [Family Provider] - in one week
Dory Charles MD [Active] - in one week
Additional Discharge Medication Instructions: STOP lithium. Venlafaxine dose decreased to 75mg/daily
Prescriptions:
New
venlafaxine 75 mg Capsule,Extended Release 24hr
75 mg PO DAILY Qty: 30 2RF
nifedipine 30 mg Tablet Extended Release
30 mg PO BID Qty: 60 0RF
sodium bicarbonate 650 mg Tablet
650 mg PO TID Qty: 90 2RF
desmopressin 0.2 mg tablet
0.2 mg PO BID Qty: 60 2RF
Continued
lamotrigine 200 mg tablet
200 mg PO BID
Discontinued
venlafaxine 150 mg capsule,extended release 24hr
150 mg PO DAILY
lithium carbonate 300 mg tablet
300 mg PO BID@0800,1800
lithium carbonate 300 mg tablet
600 mg PO HS
Discharge Orders:
Discharge Patient (As Directed); Ordered 09/16/23
Ordered By: Benny Montaño
Discharge Date and Time
Discharge Date/Time: 09/16/23 16:33
Print Language: SURINAMESE
== END 2023-09-16 16:33 | disposition home health service (06) | DRG 682 ==
LOC: 4 WEST ACU 19:11
PROVIDERS: Physician Assistant; Radiology Vascular & Interventional Radiology; Specialist; ADMITTING PHYSICIAN Hospitalist; ATTENDING PHYSICIAN Hospitalist; CONSULT PHYSICIAN Internal Medicine; CONSULT PHYSICIAN Internal Medicine Infectious Disease; CONSULT PHYSICIAN Psychiatry & Neurology Neurology; CONSULT PHYSICIAN Specialist; EMERGENCY PHYSICIAN Emergency Medicine; FAMILY PHYSICIAN Family Medicine; OTHER PHYSICIAN Internal Medicine Critical Care Medicine; OTHER PHYSICIAN Neurological Surgery; OTHER PHYSICIAN Physical Medicine & Rehabilitation; OTHER PHYSICIAN Psychiatry & Neurology Psychiatry
PROC: 0TB03ZX Excision of Right Kidney, Percutaneous Approach, Diagnostic (ICD-10-PCS; 2023-09-09)
DX: N17.9 Acute kidney failure, unspecified (principal); G92.8 Other toxic encephalopathy; J69.0 Pneumonitis due to inhalation of food and vomit; G80.1 Spastic diplegic cerebral palsy; F31.81 Bipolar II disorder; E87.1 Hypo-osmolality and hyponatremia; E87.20 Acidosis, unspecified; R78.81 Bacteremia; N39.0 Urinary tract infection, site not specified; N25.1 Nephrogenic diabetes insipidus; N25.81 Secondary hyperparathyroidism of renal origin; N14.19 Nephropathy induced by other drugs, medicaments and biological substances; R53.1 Weakness; N28.89 Other specified disorders of kidney and ureter; G80.8 Other cerebral palsy; G40.909 Epilepsy, unspecified, not intractable, without status epilepticus; G93.0 Cerebral cysts; T43.595A Adverse effect of other antipsychotics and neuroleptics, initial encounter; R63.1 Polydipsia; N10 Acute pyelonephritis; R74.8 Abnormal levels of other serum enzymes; I12.9 Hypertensive chronic kidney disease with stage 1 through stage 4 chronic kidney disease, or unspecified chronic kidney disease; N18.9 Chronic kidney disease, unspecified; E83.52 Hypercalcemia; K21.9 Gastro-esophageal reflux disease without esophagitis; F41.9 Anxiety disorder, unspecified; E87.5 Hyperkalemia; R73.9 Hyperglycemia, unspecified; D64.9 Anemia, unspecified; B96.20 Unspecified Escherichia coli [E. coli] as the cause of diseases classified elsewhere; Z86.69 Personal history of other diseases of the nervous system and sense organs; Y92.9 Unspecified place or not applicable; Z87.891 Personal history of nicotine dependence
CPT/HCPCS: 50200; 51798; 70450; 71045; 71046; 74183; 76775; 76942; 80048; 80053; 80069; 80143; 80175; 80178; 80179; 80306; 81003; 81015; 81025; 81099; 82077; 82306; 82533; 82550; 82570; 82805; 82962; 83516; 83605; 83735; 83930; 83935; 83970; 84100; 84156; 84300; 84443; 84484; 85014; 85018; 85025; 85027; 85610; 85730; 86160; 86706; 87040; 87077; 87086; 87149; 87186; 87205; 87340; 93005; 97116; 97163; 97167; 97530; 97535; 99152; 99153; 99291; A9575; J2430; J7030

== ENCOUNTER 2025-05-12 03:15 | Observation (INO) | payer MEDICARE, SELFPAY ==
[2025-05-12] VITALS (12 sets, daily range): BP systolic 130–158; BP diastolic 72–99; PULSE 72–76; O2SAT 95; BMI 32.8; BMI 32.5
--- NOTE | 2025-05-12 01:19 | ED.GENMED ---
History of Present Illness
General
Chief Complaint: Change in Mental Status
Source: patient and spouse
Exam Limitations: none
Time Seen by Provider: 05/12/25 01:05
Nursing documentation reviewed up to this point in time: agreed with
History of Present Illness
History of Present Illness:
45-year-old female with a past medical history of cerebral palsy, arachnoid cyst, seizures, bipolar disorder who presents to the emergency room with her for evaluation of slurred speech and dizziness. Patient reportedly had unsteady gait
and dizziness last night that had resolved by this morning. Today about an hour prior to arrival began having slurred speech that was not improving and was concerned she was having stroke which prompted referral to the ER. She says her
symptoms have improved but she still has some residual slurred speech. She denies any change in her vision. She has some chronic right sided weakness related to her cerebral palsy but no new weakness or numbness. No new facial drooping. She
denies any other acute complaints. She did have a complicated hospitalization a year and a half ago for urinary tract infection and acute kidney injury with lithium toxicity�she notes that she is no longer on lithium.
Past History
Past History
ED Past Medical History: Seizures, Psychiatric (Bipolar disorder) and Other (Cerebral palsy with right arm weakness)
ED Past Surgical History: None
Social History
Tobacco: Non-smoker
Alcohol: None
Personal:
Review of Systems
Review of Systems
All Other Systems: ROS reviewed and negative except as documented in HPI and ROS
Constitutional: Denies fever
Respiratory: Denies trouble breathing
Cardiac: Denies chest pain
ABD/GI: Denies abdominal pain
Neurological: Reports dizzy, weakness (Chronic and unchanged) and other (Slurred speech); Denies headache or numbness
Phy Exam
Physical Exam
Physical Exam:
General: Awake, alert, oriented x3; no acute distress
Head: Normocephalic, atraumatic
Eyes: Conjunctiva normal, left lateral gaze palsy which is reportedly chronic
Throat: Airway intact, handling secretions
Neck: Trachea midline, supple without meningismus
Lungs: Clear to auscultation bilaterally, no wheezing, rales, rhonchi
Heart: Regular rate and rhythm, no murmurs, gallops, or rubs
Neuro: Gaze palsy as above but cranial nerves otherwise intact; on strength testing she has good strength against gravity in the right upper extremity but no strength against resistance�this is her baseline level of strength in the right arm;
similarly she has good strength against gravity, limited strength to resistance of the right lower extremity which is apparently her baseline; strength 5/5 left upper and left lower extremity; sensory exam intact in all extremities; she has very
slight dysarthria, no aphasia
Skin: Warm and dry
Extremities: No edema in extremities, equal pulses in all extremities; right upper and lower extremity are atrophied
Scores
NIH Stroke Score
Level of Consciousness: 0 - Alert
LOC Questions: 0-Answers both correctly
LOC Commands: 0-Performs both correctly
Best Horizontal Gaze: 1-Partial gaze palsy (Chronic)
Visual [place]: 0=Normal, no visual loss
Facial Palsy: 0=Normal, symmetrical
Motor - Right Arm: 0=No drift 10 seconds
Motor - Left Arm: 0=No drift 10 seconds
Motor - Right Le-No drift 5 seconds
Motor - Left Le-No drift 5 seconds
Limb Ataxia: 0-Absent
Sensation: 0-Normal
Best Language: 0-No aphasia
Dysarthria: 1-Mild slurring
Extinction and Inattention: 0-No abnormality
NIH Total Score:: 2
Heart Failure Risk
Heart Failure Risk Score: Not Applicable
Heart Score for Chest Pain Patients
STEMI patient?: Not applicable
Withdrawal Assessment of Alcohol
Withdrawal Assessment Completed?: Not applicable
Course
Orders/Labs/Results
Orders:
Orders
05/12/25 01:06
Drug Screen, Urine [Urine Drug Abuse Screen] Urgent
Urinalysis Reflex To Culture Urgent
Test Result ONCE
05/12/25 01:23
CT BRAIN PERF STROKE ALERT Urgent
Comment:
Reason For Exam: slurred speech, dizziness
CT HEAD STROKE ALERT W/o Cont Urgent
Comment:
Reason For Exam: slurred speech, dizziness
CT HEAD/NECK ANG STROKE ALERT Urgent
Comment:
Reason For Exam: slurred speech, dizziness
05/12/25 01:28
Electrocardiogram (*1) Urgent
Reason for Study: TIA/Stroke
EKG- Treatment ONCE
05/12/25 01:37
Alcohol Urgent
Complete Blood Count/With Diff Urgent
Comprehensive Metabolic Panel Urgent
HCG, Serum Qualitative Screen Urgent
Lipase Urgent
05/12/25 02:38
Aspirin 325 mg PO NOW STA
Clopidogrel Bisulfate [Plavix] 75 mg PO NOW STA
Abnormal Lab Results
05/12/25
01:37
WBC 12.9 H 10^3/uL
(4.8-10.8)
Absolute Neuts (auto) 7.3 H 10^3/uL
(1.4-6.5)
Absolute Lymphs (auto) 4.3 H 10^3/uL
(1.2-3.4)
BUN 18 H mg/dl
(7-17)
Calcium 10.5 H mg/dl
(8.4-10.2)
05/12/25 01:37
05/12/25 01:37
Vital Signs
Initial and Last Documented VS:
Initial Vital Signs
Temp Pulse Resp BP Pulse Ox
36.6 C 77 20 156/99 99
05/12/25 00:51 05/12/25 00:51 05/12/25 00:51 05/12/25 00:51 05/12/25 00:51
Last Documented Vital Signs
Temp Pulse Resp BP Pulse Ox
36.6 C 77 20 156/99 98
05/12/25 00:51 05/12/25 00:51 05/12/25 00:51 05/12/25 00:51 05/12/25 02:00
MDM/Problems Addressed
Differential Diagnosis Includes:
CVA/TIA, seizure, brain mass, brain bleed, polypharmacy, electrolyte abnormality, drug/alcohol intoxication
MDM/Problems Addressed:
45-year-old female presents for evaluation of dizziness and slurred speech�had an episode of dizziness that resolved last night, has had slurred speech that started this evening. Onset roughly 11:30 PM this evening. Hypertensive but otherwise
normal vitals. Physical exam as noted�she does have chronic weakness in the right side and chronic gaze palsy which are reportedly unchanged. Slight dysarthria. Stroke alert activated after initial assessment. Plan to place an IV check labs
including CBC and a CMP, hCG, tox screen. Check an EKG. Will check CT head, CTA head and neck. Will discuss with neurology.
CT head discussed with radiology�no acute finding but chronic large arachnoid cyst noted. Will discuss with neurology.
Discussed with neurology through [facility]�recommended no TNK given isolated only very mild dysarthria not disabling. Recommended aspirin and Plavix if no contraindications, admit for MRI to completely rule out stroke also recommended continuing with
workup for other causes of dizziness and slurred speech.
Initial labs reviewed: CBC shows marginal leukocytosis, CMP no clinically significant abnormalities. Clinical reassessment symptoms seem to have resolved no longer having dysarthria. Concern for TIA�will admit for continued evaluation and
treatment. Discussed with hospitalist.
Chronic conditions affecting care:
Cerebral palsy, large arachnoid cyst, seizures
Acute Exacerbation and/or Progression of Chronic Illness:
Acutely hypertensive
Acute Exacerbation and/or Progression of Chronic Illness: HTN
*Radiology
Radiology exam reviewed: radiology read reviewed
*Pulse Oximetry
SaO2: 99
Oxygen Mode of Delivery: Room air
Patient hypoxic: no (99%)
*EKG
Interpreted by ED Provider?: Yes
Comparison EKG: no changes
Heart Rate: 70
Rate: normal
Rhythm: sinus
[place]: normal axis
Interval: normal interval
QRS Pattern: normal QRS
Ischemia: no ischemia
*Critical Care Note
Total Time (30-74mins, 75-104mins- exclusive of procedures): Not Applicable
Data Reviewed
Review of Other/Old Records Reveals: Labs, Records and Discharge Summary
Source: patient, records and spouse
Patient Management
Discussion with other providers: Hospitalist (Discussed with hospitalist), Sanitation Technician (Discussed with neurology) and Radiologist (Discussed with radiologist)
Escalation/DeEscalation of care consider admission/obs:
Admission indicated
ED Attending Note
-
Portions of this chart may have been created with voice recognition software.� Occasional wrong word or��sound alike� substitutions may have occurred due to the inherent limitations of voice recognition software.
Discharge Plan
Departure
Patient Disposition: Admit
Date of Disposition: 05/12/25
Time of Disposition: 02:38
Admit to doctor: Julián
Presentation/result/management discussed w/ accepting MD/DO: Hospitalist
Discharge Problem:
TIA (transient ischemic attack)
Prescriptions:
No Action
lamotrigine 200 mg tablet
200 mg PO BID
venlafaxine 75 mg Capsule,Extended Release 24hr
75 mg PO DAILY Qty: 30 2RF
nifedipine 30 mg Tablet Extended Release
30 mg PO BID Qty: 60 0RF
sodium bicarbonate 650 mg Tablet
650 mg PO TID Qty: 90 2RF
desmopressin 0.2 mg tablet
0.2 mg PO BID Qty: 60 2RF
Referrals:
Joseph Burleson MD [Family Provider, Family Practice]
Interventions
Interventions:
*Risk Screen - Suicide Last Done: 05/12/25 00:51
*General Assessment Last Done: 05/12/25 00:51
*Neglect/Abuse Screening Last Done: 05/12/25 00:51
*ED- Fall Risk Assessment Last Done: 05/12/25 01:45
*ED COVID-19 Vaccine History Last Done: 05/12/25 01:45
*ED Influenza Vaccine History Last Done: 05/12/25 01:45
ED- Pulmonary Assessment Last Done: 05/12/25 02:00
ED- Neurological Assessment Last Done: 05/12/25 01:45
ED- Cardiac Assessment Last Done: 05/12/25 01:45
ED Swallowing Screen Last Done: 05/12/25 01:45
Discharge Date and Time
Print Language: OCCITAN
[2025-05-12 01:59] LABS: Hematocrit 40.4 % (37.0-47.0); Hemoglobin 13.9 g/dL (12.0-16.0); Mean Corp Hgb Conc. 34.4 g/dL (33.0-37.0); Mean Corpuscular Volume 83.6 fL (81.0-99.0); Nucleated Red Blood Cells % 0 %; Platelet Count 321 10^3/uL (130-400); Red Cell Dist. Width 13.0 % (11.5-14.5)
[2025-05-12 02:05] LABS: HCG, Serum Qualitative Screen Negative
[2025-05-12 02:07] LABS: ALT (SGPT) 14 U/L (0-35); AST (SGOT) 18 U/L (14-36); Albumin 5.0 g/dl (3.5-5.0); Alkaline Phosphatase 123 U/L (38-126); Blood Urea Nitrogen 18 mg/dl (7-17); Calcium 10.5 mg/dl (8.4-10.2); Carbon Dioxide 24 mmol/L (22-30); Chloride 104 mmol/L (98-107); Estimated Creatinine Clearance 81 ml/min; Glucose 96 mg/dl (70-99); Lipase 280 U/L (23-300); Potassium 4.3 mmol/L (3.5-5.1); Sodium 137 mmol/L (135-145); Total Protein 8.0 g/dl (6.3-8.2); eGFR > 60.00
[2025-05-12] MEDS: PLAVIX 75 MG PO (02:42)
[2025-05-12] MEDS: ASPIRIN 325 MG PO (02:42)
--- NOTE | 2025-05-12 03:09 | HPS.HSE ---
Family Physician
-
Family Physician: Joseph Burleson
Chief Complaint
-
Ataxia, Slurred Speech
History of Present Illness
Patient is a 45y F with PMH significant for cerebral palsy, large arachnoid cyst and chronic R sided weakness who presents to ED complaining of ataxia and speech difficulty. History obtained from patient and her at the bedside. Patient
states that she woke this AM and felt more unsteady on her feet that usual. She typically walks without an assist device - though she does have some issues with R foot drop / weakness, especially when she becomes fatigued. Today she felt more
off-balance than usual for most of the day. She did not fall. No numbness / tingling. No headache. She had no other symptoms until around 11:30 this evening when her noted that she was slurring her words. This seemed to come-and-go for
a period of time and then became more persistent. They presented to the ED for further evaluation.
No headache or vision changes. No recent med changes. No fever or other focal symptoms / complaints.
In the ED patient feels tired but otherwise has no complaints. She is speaking clearly at present.
Medical History
Past Medical History
Past Medical History: Reports Other
Additional Past Medical History:
Cerebral Palsy
Large Left Arachnoid Cyst / Encephalomalacia
Chronic Right Sided Weakness due to the above
Bipolar Disorder
Questionable Seizure Disorder
Diabetes Insipidus
Past Surgical History: Reports None
Social History
Tobacco: Non-smoker
Alcohol: None
Drug: None
Family History
Family History: Not pertinent
Allergies / Home Medications
Allergies reflects when Allergies were last updated in [employer].
Home Medications with original date entered in [employer]
Allergy/Medication List:
Allergies
Allergy/AdvReac Type Severity Reaction Status Date / Time
No Known Allergies Allergy Unverified 09/02/23 15:13
Home Medications
lamotrigine 200 mg tablet 200 mg PO BID Seizures 09/02/23
desmopressin 0.2 mg tablet 0.2 mg PO BID #60 tabs 09/16/23
nifedipine 30 mg tablet,extended release 30 mg PO BID #60 tabs 09/16/23
sodium bicarbonate 650 mg tablet 650 mg PO TID #90 tabs 09/16/23
venlafaxine 75 mg capsule,extended release 24 hr 75 mg PO DAILY #30 caps 09/16/23
Review of Systems
-
History Source: Patient and Family
A 12 point ROS was completed and negative except as noted: Yes
Constitutional: Reports Fatigue; Denies Fever or Chills
Respiratory: Denies Cough or Trouble Breathing
Cardiac: Denies Chest Pain or Palpitations
Abdomen/GI: Denies Abdominal Pain, Nausea, Vomiting or Diarrhea
: Denies Dysuria, Frequency or Flank Pain
Musculoskeletal: Denies Joint Pain or Edema
Neurological: Reports Weakness (chronic); Denies Dizzy, Headache or Numbness
Psych: Denies Depression or Anxiety
Physical Exam
Vital Signs
Vital Signs
Temp Pulse Resp BP Pulse Ox
97.9 F 82 17 158/86 97
05/12/25 00:51 05/12/25 02:45 05/12/25 02:45 05/12/25 02:27 05/12/25 02:30
Physical Exam
General: Other (45y F in no acute distress.)
HEENT: Moist mucous membranes and PERRLA
Respiratory: Clear; No Wheezes, Rales or Rhonchi
Cardiac: S1/S2 and Regular Rhythm; No Murmur
GI: Soft, Non Tender, Non Distended and Normal Bowel Sounds
Musculoskeletal: No Clubbing, No Cyanosis and Other (Chronic atrophy of the RUE / hand.)
Neuro: AO x 3 and Other (Chronic R weakness - RUE > RLE. No new focal findings. Speech is clear at present.)
Laboratory Results
-
05/12/25 01:37
05/12/25 01:37
Laboratory Results
Total Bilirubin 0.3 mg/dl (0.2-1.3) 05/12/25 01:37
AST 18 U/L (14-36) 05/12/25 01:37
ALT 14 U/L (0-35) 05/12/25 01:37
Alkaline Phosphatase 123 U/L (38-126) 05/12/25 01:37
Lipase 280 U/L (23-300) 05/12/25 01:37
Impression/Plan
-
A/P: Patient is a 45y F with PMH significant for cerebral palsy, large L sided arachnoid cyst and chronic R sided weakness who presents to ED for evaluation of ataxia and slurred speech.
Ataxia
Dysarthria
- Observe overnight for further evaluation and treatment.
- Patient reports history of increased symptoms (including stumbling gait, slurred speech) with excess fatigue / being very tired.
- CT head in the ED with chronic abnormalities but no acute changes.
- Follow for any new focal neurologic symptoms / exam findings.
- MRI in AM for completeness.
- PT / OT / Speech therapy evaluations.
Cerebral Palsy
Large Left Arachnoid Cyst / Encephalomalacia
Chronic Right Sided Weakness secondary to the above
- Presentation may be secondary to increase in CP symptoms due to fatigue, etc.
- No evidence of focal infectious process, etc at this time.
- Follow temperature curve, monitor for any new symptoms.
Bipolar Disorder
- Stable. Unclear if patient actually has prior h/o seizures.
- There was concern for possible seizures in the past presenting as headaches, speech difficulty. No tonic-clonic activity.
- Current med regimen is primarily for Bipolar disorder / mood control and not seizure prevention.
- Continue current medications without changes.
Benign Hypertension
- Stable. Continue nifedipine.
Diabetes Insipidus
- Stable. Renal function, Na levels, etc all stable.
- Continue current DDAVP dosing without changes.
Leukocytosis
- This is chronic / unchanged from prior values.
DVT Prophylaxis: SCDs
Code Status: Full
[2025-05-12 05:43] LABS: Urine Character Clear (Clear)
[2025-05-12 06:18] LABS: Urine Red Blood Cell 0-2 /HPF (0-2)
[2025-05-12 06:19] LABS: Urine White Cell 0-2 /HPF (0-5)
--- NOTE | 2025-05-12 07:47 | PTCARENOTE ---
pt faox3, neuro check with no deficits noted. pt states that she feels much better, she has baseline r sided wknesss d/t cerebral palsy. speech is clear and she feels that her l sided strength has returned . pt resting, call navarro in place
[2025-05-12] MEDS: DDAVP 0.2 MG PO ×2 (07:55→19:50)
[2025-05-12] MEDS: LOW STRENGTH ASPIRIN 81 MG PO (07:56)
[2025-05-12] MEDS: EFFEXOR XR 75 MG PO (07:56)
[2025-05-12] MEDS: LAMICTAL 200 MG PO ×2 (07:56→19:52)
[2025-05-12] MEDS: SODIUM BICARBONATE 650 MG PO ×3 (08:06→21:23)
[2025-05-12] MEDS: PROCARDIA XL (EXTENDED RELEASE) 30 MG PO ×2 (08:06→19:51)
[2025-05-12 09:22] LABS: Glycohemoglobin (HgbA1c) 5.3 % (4.0-5.9)
--- NOTE | 2025-05-12 09:55 | W.PN.UPDATE ---
Update Note
Progress Note Update
Seen and admitted by Dr. Gallego this morning for transient ataxia and speech impairment.
Patient states this morning she got up and walked around on the floor without any imbalance or ataxia. Her speech has come back to normal.
Await MRI of the brain.
Consult neurology
--- NOTE | 2025-05-12 10:44 | CM ---
Patient seen bedside, initial assessment completed. Patient is a 45y F with PMH significant for cerebral palsy, large arachnoid cyst and chronic R sided weakness who presents to ED complaining of ataxia and speech difficulty.
Patient resides w/ spouse in a single story home, 1 step to enter. Patient is independent in all areas. Only has a grab bar in the bathroom, no other DME reported. Home PT/OT last year. No SNF hx.
Address, point of contact and insurance verified
PCP: Josehp Burleson
Pharmacy: [facility]
Patient admitted under obs services. MAK form verbally reviewed, copy provided, copy on chart
Plan: Home, no needs anticipated
--- NOTE | 2025-05-12 11:02 | CON.NEURO4 ---
Consultation - Neurology 4
-
CONSULTING PHYSICIAN: Dr. Alex Mustafa
REFERRING PHYSICIAN: Dr. Rick Guerrero
DICTATED BY: Dr. Alex Mustafa
DATE/TIME OF REQUEST: 05/12/2025
DATE/TIME OF CONSULTATION: 05/12/2025
Reason for Consultation: Slurred speech, ataxia
ASSESSMENT AND PLAN:
Patient is a 45 years old female with PMH significant for cerebral palsy, large arachnoid cyst in the left cerebral hemisphere and chronic R sided weakness who presents to ED complaining of ataxia and speech difficulty. The patient says that
around 10 PM last night she developed slurring of the speech which was noted by her and it continued intermittently until 4:00 a.m. in the morning. At this time the patient says that she is back to her baseline. The patient has a history
of a large arachnoid cyst in the left hemisphere since , and she has had a chronic mild right-sided facial droop, mild right arm or right leg weakness and mild difficulty with speech. The patient also has decreased sensation in the right side
of the body which is chronic and is at her baseline at this time.
. CT head shows a large arachnoid cyst in the left cerebral hemisphere. There is no evidence of acute infarct.
. CTA head/neck does not show a large vessel occlusion.
The patient likely had a TIA. The patient has returned to her baseline at this time. At baseline, the patient has a mild right-sided facial droop, mild right upper and lower extremity weakness and decreased sensation on the right side. The
patient has a history of cerebral palsy, and has a large arachnoid cyst in the left cerebral hemisphere.
Plan to keep patient on aspirin 81 mg daily and Plavix 75 mg daily, both for 21 days and then will stop Plavix, and she will continue with aspirin 81 mg daily 3 weeks.
. Echocardiogram
Follow-up with neurology as an outpatient.
Will sign off. Please call if you have any question.
History of Present Illness:
Patient is a 45 years old female with PMH significant for cerebral palsy, large arachnoid cyst in the left cerebral hemisphere and chronic R sided weakness who presents to ED complaining of ataxia and speech difficulty. The patient says that
around 10 PM last night she developed slurring of the speech which was noted by her and it continued intermittently until 4:00 a.m. in the morning. At this time the patient says that she is back to her baseline. The patient has a history
of a large arachnoid cyst in the left hemisphere since , and she has had a chronic mild right-sided facial droop, mild right arm or right leg weakness and mild difficulty with speech. The patient also has decreased sensation in the right side
of the body which is chronic and is at her baseline at this time.
Past Medical History:
Cerebral palsy, large left cerebral hemispheric arachnoid cyst, bipolar disorder, diabetes .insipidus
Review of Systems:
The patient denies headache, dizziness, chest pain, shortness of breath, fever, chills, nausea, vomiting and diarrhea.
Neurologic Examination:
Alert and oriented x 3,
The patient has a mild expressive aphasia,
The cranial nerves II to XII are grossly intact except for a right-sided facial droop,
The strength is grossly 4/5 in the right upper and lower extremities and the strength is grossly 5/5 in the left upper and lower extremities,
The patient has decreased sensation on the right side of the body,
The cerebellar examination does not show limb ataxia.
Vital Signs and Labs
-
Vital Signs and Labs:
Vital Signs
Temp Pulse Resp BP Pulse Ox
37.0 C 77 18 136/89 98
05/12/25 06:29 05/12/25 06:29 05/12/25 06:29 05/12/25 06:29 05/12/25 06:29
Lab Results
05/12/25 01:37
05/12/25 01:37
Sodium 137 mmol/L (135-145) 05/12/25 01:37
Potassium 4.3 mmol/L (3.5-5.1) 05/12/25 01:37
BUN 18 mg/dl (7-17) H 05/12/25 01:37
Glucose 96 mg/dl (70-99) 05/12/25 01:37
Calcium 10.5 mg/dl (8.4-10.2) H 05/12/25 01:37
Ur Buprenorphine Negative (Negative) 05/12/25 05:27
Medications
-
Active Medications
Generic Name Dose Route Start Last Admin
Trade Name Freq PRN Reason Stop Dose Admin
Acetaminophen 650 mg 05/12/25 06:37
Acetaminophen 325 Mg Tablet PO 06/09/25 06:36
Q4HPRN PRN
Mild Pain / Temp > 101
Aspirin 81 mg 05/12/25 08:00 05/12/25 07:56
Aspirin 81 Mg Chewable Tablet PO 06/09/25 07:59 81 mg
DAILY MICHELLE Administration
Desmopressin Acetate 0.2 mg 05/12/25 08:00 05/12/25 07:55
Desmopressin 0.1 Mg Tablet PO 06/09/25 07:59 0.2 mg
BID MICHELLE Administration
Lamotrigine 200 mg 05/12/25 08:00 05/12/25 07:56
\\ PO 06/09/25 07:59 200 mg
BID MICHELLE Administration
Nifedipine 30 mg 05/12/25 08:00 05/12/25 08:06
Nifedipine 30 Mg Extended Release Tablet PO 06/09/25 07:59 30 mg
BID MICHELLE Administration
Sodium Bicarbonate 650 mg 05/12/25 08:00 05/12/25 08:06
Sodium Bicarbonate 650 Mg Tablet PO 06/09/25 07:59 650 mg
TID MICHELLE Administration
Sodium Chloride 0 flush 05/12/25 07:00
Sodium Chloride 0.9% (Flush) Syringe IV 06/09/25 06:59
PER PROTOCOL MICHELLE
Venlafaxine HCl 75 mg 05/12/25 08:00 05/12/25 07:56
Venlafaxine 75 Mg Extended Release Capsule PO 06/09/25 07:59 75 mg
DAILY MICHELLE Administration
Home Medications
�Medication �Instructions �Recorded
lamotrigine 200 mg tablet 200 mg PO BID Seizures 09/02/23
desmopressin 0.2 mg tablet 0.2 mg PO BID #60 tabs 09/16/23
nifedipine 30 mg tablet,extended 30 mg PO BID #60 tabs 09/16/23
release
sodium bicarbonate 650 mg tablet 650 mg PO TID #90 tabs 09/16/23
venlafaxine 75 mg capsule,extended 75 mg PO DAILY #30 caps 09/16/23
release 24 hr
--- NOTE | 2025-05-12 16:45 | PTOTSP ---
ST Acute Care Evaluation
Pt currently presents with clinical signs of a functional oropharyngeal swallow. No overt s/s of penetration or aspiration noted at bedside. Cannot rule out silent aspiration at bedside. No skilled dysphagia services indicated at this time.
Recommendations:
- Regular solids, thin liquids, meds as tolerated.
- General aspiration precautions.
- No skilled dyshagia services indicated at this time.
- SENSOR OPERATOR to f/u and complete a cognitive communication assessment/tx only if indicated based on results of MRI of brain.
[2025-05-13 03:33] VITALS: BP 140/78
[2025-05-13 07:21] LABS: Hematocrit 40.4 % (37.0-47.0); Hemoglobin 13.7 g/dL (12.0-16.0); Mean Corp Hgb Conc. 33.9 g/dL (33.0-37.0); Mean Corpuscular Volume 85.8 fL (81.0-99.0); Platelet Count 303 10^3/uL (130-400); Red Cell Dist. Width 12.8 % (11.5-14.5)
[2025-05-13 07:26] VITALS: BP 153/89
[2025-05-13 07:56] LABS: Blood Urea Nitrogen 11 mg/dl (7-17); Calcium 10.4 mg/dl (8.4-10.2); Carbon Dioxide 25 mmol/L (22-30); Chloride 107 mmol/L (98-107); Estimated Creatinine Clearance 81 ml/min; Glucose 89 mg/dl (70-99); HDL Cholesterol 55 mg/dl; LDL Cholesterol, Calculated 139 mg/dl; Potassium 4.3 mmol/L (3.5-5.1); Sodium 137 mmol/L (135-145); Very Low Density Lipoprotein 13 mg/dl (0-30); eGFR > 60.00
[2025-05-13] MEDS: LOW STRENGTH ASPIRIN 81 MG PO (09:03)
[2025-05-13] MEDS: SODIUM BICARBONATE 650 MG PO (09:03)
[2025-05-13] MEDS: DDAVP 0.2 MG PO (09:03)
[2025-05-13] MEDS: LAMICTAL 200 MG PO (09:04)
[2025-05-13] MEDS: PROCARDIA XL (EXTENDED RELEASE) 30 MG PO (09:04)
[2025-05-13] MEDS: EFFEXOR XR 75 MG PO (09:04)
--- NOTE | 2025-05-13 09:20 | W.PN.HOSP.TC ---
Addendum entered and electronically signed by Rick Guerrero MD 05/13/25 15:14:
.
Addendum entered and electronically signed by Rick Guerrero MD 05/13/25 15:08:
MRI brain
IMPRESSION:
1. No MRI evidence for acute infarct or intracranial hemorrhage.
2. 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
basal ganglia).
3. Residual brain parenchyma in the medial left frontal and parietal lobes and in the posterior left temporal lobe supplied by the left anterior cerebral artery and left posterior cerebral artery.
4. LARGE 12.2 cm EXPANSILE CYST (arachnoid cyst) in the LEFT CEREBRAL HEMISPHERE at the site of a chronic infarct (probably an intra-axial cyst given the presence of branching middle cerebral arterial vessels extending through thin septations in
the cyst).
[facility] - no need for antiplatelet treatment, continue with current AED and follow up as OP.
Original Note:
Today's Communication/Plan
-
Antiplatelet treatment for neurology
MRI of the brain pending
Assessment / Plan
Assessment / Plan
A/P: Patient is a 45y F with PMH significant for cerebral palsy, large L sided arachnoid cyst and chronic R sided weakness who presents to ED for evaluation of ataxia and slurred speech.
Ataxia
Dysarthria
- Patient reports history of increased symptoms (including stumbling gait, slurred speech) with excess fatigue / being very tired.
- Resolved with no recurrence of her presenting symptoms
- CT head and CTA noted. Radiology read suggests transcortical infarct in the left cerebral hemisphere with cystic encephalomalacia but patient has a history of large arachnoid cyst for many years. The fluid was isoattenuating to CSF. Discussed
with radiology and he said it could be just a cyst.
- She had a history of seizure.
- Unclear if this is a TIA or a seizure like the. Continue with her lamotrigine. Continue with antiplatelet plan. Will discuss with neurology if there is a need for further TIA workup and statins.
- MRI pending
- PT / OT / Speech therapy evaluations.
Cerebral Palsy
Large Left Arachnoid Cyst / Encephalomalacia
Chronic Right Sided Weakness
History of seizure
Continue the seizure medicine
Bipolar Disorder
- Stable. Unclear if patient actually has prior h/o seizures.
- There was concern for possible seizures in the past presenting as headaches, speech difficulty. No tonic-clonic activity.
- Current med regimen is primarily for Bipolar disorder / mood control and not seizure prevention.
- Continue current medications without changes.
Benign Hypertension
- Stable. Continue nifedipine.
Diabetes Insipidus
- Stable. Renal function, Na levels, etc all stable.
- Continue current DDAVP dosing without changes.
Leukocytosis
- This is chronic / unchanged from prior values.
DVT Prophylaxis: SCDs
Code Status: Full
Discussed with radiology Dr. Dom Mack
Discussed with neurology
Anticipated Discharge: Today
Subjective/Interval History
-
Date of Service: May 13, 2025
No further ataxia issue or speech impairment/word finding difficulty. She is back to normal.
She says she has right-sided weakness and limb atrophy since .
She was diagnosed with arachnoid cyst many years ago and the last imaging was . It was discovered as part of her seizure workup then. She is on antiseizure since then. No breakthrough seizures.
Denies prior history of strokes.
Objective Data
-
Labs:
Laboratory Results
05/13/25
06:29
WBC 13.0 H
Hgb 13.7
Hct 40.4
Plt Count 303
Sodium 137
Potassium 4.3
Chloride 107
Carbon Dioxide 25
BUN 11
Creatinine 1.0
Glucose 89
Calcium 10.4 H
Vital Signs:
Vital Signs
Temp Pulse Resp BP Pulse Ox
98 F 73 16 153/79 96
05/13/25 07:26 05/13/25 07:26 05/13/25 07:26 05/13/25 09:04 05/13/25 07:26
I&O
05/12/25 05/13/25 05/14/25
06:59 06:59 06:59
Intake Total 960 / 960
Balance 960 / 960
Physical Exam
-
General: No Apparent Distress
Respiratory: Non Labored Respirations; Negative Accessory Resp Muscle Use
Cardiac: Regular Rhythm and S1/S2; Negative Murmur
GI: Soft and Nontender
Neuro: Negative No Motor Deficits (More right arm than leg weakness with right arm atrophy), Slurred Speech or Facial Droop
Psych: Calm; Negative Confused
Data Reviewed
-
Labs: Labs Reviewed by me
--- NOTE | 2025-05-13 09:41 | W.PN.NEURO.1 ---
Today's Communication / Plan
-
. CT head shows a large arachnoid cyst in the left cerebral hemisphere. There is no evidence of acute infarct.
. CTA head/neck does not show a large vessel occlusion.
The patient has a history of seizures and is on lamotrigine. Is possible that the patient had focal seizures secondary to a left hemispheric arachnoid cyst, that would make TIA less likely. At baseline, the patient has a mild right-sided facial
droop, mild right upper and lower extremity weakness and decreased sensation on the right side. The patient has a history of cerebral palsy, and has a large arachnoid cyst in the left cerebral hemisphere. The patient has returned to her baseline at
this time.
The patient will continue with lamotrigine 200 mg twice a day , as she likely had a focal seizure arising from left hemisphere. She did not have a Loss of consciousness with seizures. She does not appear to have had a stroke, and a TIA is less
likely given the history of left cerebral hemisphere large arachnoid cyst and history of seizures in the past. MRI brain does not show evidence of acute infarct or intracranial hemorrhage.
She needs to take seizure precautions including no driving for 6 months, and she needs to be reported to the [facility] as per law. According to the patient's , the patient does not drive and she has not driven since around 2006.
Follow-up with neurology in about 4 weeks.
Subjective/Objective
Subjective Data
Date of Service: May 13, 2025
Patient is a 45 years old female with PMH significant for cerebral palsy, large arachnoid cyst in the left cerebral hemisphere and chronic R sided weakness who presents to ED on , complaining of ataxia and speech difficulty. The
patient says that around 10 PM on 05/11/2025, she developed slurring of the speech which was noticed by her and it continued intermittently until 4:00 a.m. in the morning on 05/12/2025. At this time the patient says that she has returned
to her baseline. The patient has a history of a large arachnoid cyst in the left hemisphere since , and she has had a chronic mild right-sided facial droop, mild right arm and right leg weakness, and mild difficulty with speech. The patient
also has decreased sensation in the right side of the body which is chronic and she is at her baseline at this time.
. CT head shows a large arachnoid cyst in the left cerebral hemisphere. There is no evidence of acute infarct.
. CTA head/neck does not show a large vessel occlusion.
The patient has a history of seizures and is on lamotrigine. Is possible that the patient had focal seizures secondary to a left hemispheric arachnoid cyst, that would make TIA less likely. At baseline, the patient has a mild right-sided facial
droop, mild right upper and lower extremity weakness and decreased sensation on the right side. The patient has a history of cerebral palsy, and has a large arachnoid cyst in the left cerebral hemisphere. The patient has returned to her baseline at
this time.
The patient will continue with lamotrigine 200 mg twice a day , as she likely had a focal seizure arising from left hemisphere. She did not have a Loss of consciousness with seizures. She does not appear to have had a stroke, and a TIA is less
likely given the history of left cerebral hemisphere large arachnoid cyst and history of seizures in the past. MRI brain does not show evidence of acute infarct or intracranial hemorrhage.
She needs to take seizure precautions including no driving for 6 months, and she needs to be reported to the [facility] as per law. According to the patient's , the patient does not drive and she has not driven since around 2006.
Follow-up with neurology in about 4 weeks.
Objective Data
Vital Signs
Temp Pulse Resp BP Pulse Ox
36.6 C 73 16 153/79 96
05/13/25 07:26 05/13/25 07:26 05/13/25 07:26 05/13/25 09:04 05/13/25 07:26
Lab Results
05/13/25 06:29
05/13/25 06:29
Sodium 137 mmol/L (135-145) 05/13/25 06:29
Potassium 4.3 mmol/L (3.5-5.1) 05/13/25 06:29
BUN 11 mg/dl (7-17) 05/13/25 06:29
Glucose 89 mg/dl (70-99) 05/13/25 06:29
Calcium 10.4 mg/dl (8.4-10.2) H 05/13/25 06:29
LDL Cholesterol, Calc 139 mg/dl 05/13/25 06:29
Ur Buprenorphine Negative (Negative) 05/12/25 05:27
Patient Allergies
No Known Allergies Allergy (Unverified 09/02/23 15:13)
Medications
-
Home Medications
�Medication �Instructions �Recorded
lamotrigine 200 mg tablet 200 mg PO BID Seizures 09/02/23
desmopressin 0.2 mg tablet 0.2 mg PO BID #60 tabs 09/16/23
nifedipine 30 mg tablet,extended 30 mg PO BID #60 tabs 09/16/23
release
sodium bicarbonate 650 mg tablet 650 mg PO TID #90 tabs 09/16/23
venlafaxine 75 mg capsule,extended 75 mg PO DAILY #30 caps 09/16/23
release 24 hr
[2025-05-13 11:46] VITALS: BP 125/74
[2025-05-13 15:02] VITALS: BP 127/78
--- NOTE | 2025-05-13 15:10 | W.DCSUMMARY ---
Discharge Summary
Discharge Data
Date of Admission: 05/12/25
Date of Discharge: 05/13/25
-
Pending Results: No
Hospital Course
Primary diagnosis:
Transient speech impairment and ataxia with no evidence of acute ischemic infarct
History of seizure disorders
History of large left-sided arachnoid cyst
Secondary diagnosis:
Essential hypertension
Diabetes insipidus
Depression
Hospital course:
Patient with a large left-sided arachnoid cyst and prior history of seizures presented with transient ataxia and word finding difficulty. Her symptoms were brief and resolved spontaneously. No other focal neurological deficit on admission.
Initially she had a CT head and then followed by an MRI of the brain which showed no evidence of acute infarct or intracranial hemorrhage .
Full report on MRI as below.
1. No MRI evidence for acute infarct or intracranial hemorrhage.
2. 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
basal ganglia).
3. Residual brain parenchyma in the medial left frontal and parietal lobes and in the posterior left temporal lobe supplied by the left anterior cerebral artery and left posterior cerebral artery.
4. LARGE 12.2 cm EXPANSILE CYST (arachnoid cyst) in the LEFT CEREBRAL HEMISPHERE at the site of a chronic infarct (probably an intra-axial cyst given the presence of branching middle cerebral arterial vessels extending through thin septations in
the cyst).
Multiple chronic findings as above cannot rule out transient breakthrough seizure but it was brief and not recurring. Neurology saw patient CTA of the head and neck showed no evidence of stenosis. Did not see any indication for antiplatelet
treatments. They advised to continue current AEDs and follow-up with the neurology.
Her blood pressure was under goal and her nifedipine was continued. She was continued on home medication without any changes.
She was advised to take seizure precautions and neurology to notify [employer] of driving restrictions.
Consultants on board:
Neurology -Alex Whitlock
Discharge Plan
-
Patient Disposition: Home (Routine Discharge)
Discharge Diagnosis/Procedures: Transient ataxia and speech impairment - MRI neg for acute infarct , chronic infarct, Large left arachnoid cyst
Diet: Regular
Activity: As tolerated
Driving Restrictions: Not until seen by your Dr
Referrals:
Alex Mustafa MD [Active, Neurology] - in one month
Joseph Burleson MD [Family Provider, [facility]] - in less than 1 week
Prescriptions:
Continued
lamotrigine 200 mg tablet
200 mg PO BID
venlafaxine 75 mg Capsule,Extended Release 24hr
75 mg PO DAILY Qty: 30 2RF
nifedipine 30 mg Tablet Extended Release
30 mg PO BID Qty: 60 0RF
sodium bicarbonate 650 mg Tablet
650 mg PO TID Qty: 90 2RF
desmopressin 0.2 mg tablet
0.2 mg PO BID Qty: 60 2RF
Discharge Orders:
Discharge Patient (As Directed); Ordered 05/13/25
Ordered By: Rick Guerrero
Discharge Date and Time
Print Language: GEORGIAN
== END 2025-05-13 16:19 | disposition home or self-care (01) ==
LOC: 4 WEST ACU 03:15
PROVIDERS: ADMITTING PHYSICIAN Hospitalist; ATTENDING PHYSICIAN Internal Medicine; CONSULT PHYSICIAN Psychiatry & Neurology Neurology; EMERGENCY PHYSICIAN Emergency Medicine; FAMILY PHYSICIAN Family Medicine
DX: R27.0 Ataxia, unspecified (principal); R47.81 Slurred speech; G93.0 Cerebral cysts; Z86.69 Personal history of other diseases of the nervous system and sense organs; I10 Essential (primary) hypertension; E23.2 Diabetes insipidus; F31.9 Bipolar disorder, unspecified; Z79.899 Other long term (current) drug therapy; Z79.02 Long term (current) use of antithrombotics/antiplatelets; Z79.82 Long term (current) use of aspirin
CPT/HCPCS: 0042T; 70450; 70496; 70498; 70551; 80048; 80053; 80061; 80306; 81003; 81015; 82077; 83036; 83690; 84443; 84703; 85025; 85027; 92610; 93005; 97161; 97165; 99285; G0378; Q9967